=== PATIENT | female | born 1955 | race Caucasian/White ===

== ENCOUNTER 2017-07-22 06:40 | Day surgery (SDC) | payer MEDICAID, SELFPAY ==
--- NOTE | 2017-07-22 | IMM_PTH ---
PATIENT: ROHAN ROSALES LOC: EN U#:[id number] AGE/SX: 61/F ROOM: RE07/22/[address]: Dr. Janey Geronimo MD : 1955 BED: DIS: 07/22/2017 SPEC #: [id number] RECD: 07/23/17 10:58 STATUS: JANE ADELINA #: [id number] MICAELA: 07/22/17 00:[address]: Janey Greonimo DEPT: IMMUNOHISTOCHEMISTRY RECD BY: Tiffany Palafox ENTERED: 07/23/17 11:03 SP TYPE: IMMUNO OTHR DR: Dr. Toño Monzon MD Tissues: A - Stomach, NOS B - Esophageal mucous membrane Procedures: H Pylori (initial) PHYSICIAN & [place] [id number] SPECIMEN INFORMATION: Tissue Source: A ? Antral biopsy, B ? GE junction biopsy Clinical Info: GERD, diarrhea Specimen Number: [id number] A & B CPT code: 59134 x2 METHODOLOGY: Deparaffinized sections of prefer/formalin-fixed tissue or PAP/DQ stained slides are incubated with monoclonal/polyclonal antibodies/oligonucleotide probes. Localization is made via biotin free immunoperoxidase method. Appropriate controls are performed and reacted as expected. Results on target cell population are indicated in the following table: RESULTS: ANTIBODY / CLONE RESULT Block A H Pylori (polyclonal) negative Block B H Pylori (polyclonal) negative These tests were developed and their performance characteristics determined by [facility]. They may not have been cleared or approved by the U.S. Food and Drug Administration. The FDA has determined that such clearance or approval is not necessary. INTERPRETATION: A. Antral biopsy: Negative for Helicobacter pylori organisms. B. GE junction biopsy: Negative for Helicobacter pylori organisms. AM:kenneth 07/27/17
[2017-07-22 06:59] VITALS: BP 111/74; PULSE 79; RESP 18; TEMP 36.1; O2SAT 96; BMI 29.8
--- NOTE | 2017-07-22 08:06 | GASB_PTH ---
PATIENT: ROHAN ROSALES LOC: EN U#:[id number] AGE/SX: 61/F ROOM: RE07/22/[address]: Dr. Janey Geronimo MD : 1955 BED: DIS: 07/22/2017 SPEC #: [id number] RECD: 07/22/17 11:15 STATUS: JANE ADELINA #: [id number] MICAELA: 07/22/17 08:[address]: Janey Geronimo DEPT: SURGICAL PATHOLOGY RECD BY: Reji Casanova ENTERED: 07/22/17 11:16 SP TYPE: Gastric Bx CORDELL DR: Dr. Toño Monzon MD Tissues: A - Gastric mucous membrane B - Gastric mucous membrane C - Descending colon D - Sigmoid colon biopsy Procedures: Surgery Specimen Level IV HEADER OPERATION: EGD and colonoscopy PRE-OP DIAGNOSIS: GERD, diarrhea TISSUE SUBMITTED: A ? Antral biopsy for H. pylori and path, B ? GE junction biopsy, C ? Descending colon random biopsies, D ? Sigmoid biopsy MICROSCOPIC DIAGNOSIS A. Gastric antrum, biopsy: Mild chronic gastritis. B. Gastroesophageal junction, biopsy: Fragments of gastric mucosa with mild chronic inflammation. C. Descending colon, random biopsy: No pathologic diagnosis. D. Sigmoid colon, biopsy: Fragments of colonic mucosa with focal hyperplastic change. AM:kenneth 07/23/17 COMMENT A & B. The results of immunohistochemistry for Helicobacter pylori will be reported separately ([id number]). B. Squamous mucosa is not represented in the biopsy. Clinical correlation is suggested. MICROSCOPIC DESCRIPTION Slides are reviewed. GROSS DESCRIPTION A - Received in fixative is one container labeled with the patient's name and designated antral biopsy. The specimen consists of one irregular fragment of light peralta soft tissue that measures 0.3 x 0.3 x 0.1 cm. The specimen is totally submitted in one cassette. B - Received in fixative is one container labeled with the patient's name and designated GE junction biopsy. The specimen consists of multiple irregular fragments of light peralta soft tissue that in aggregate measure 1.5 x 0.1 x 0.1 cm. The specimen is totally submitted in one cassette. C - Received in fixative is one container labeled with the patient's name and designated random biopsy descending colon. The specimen consists of one irregular fragment of light peralta soft tissue that measures 0.3 x 0.3 x 0.1 cm. The specimen is totally submitted in one cassette. D - Received in fixative is one container labeled with the patient's name and designated sigmoid biopsy, random. The specimen consists of multiple irregular fragments of light peralta soft tissue that in aggregate measure 1.2 x 0.3 x 0.1 cm. The specimen is totally submitted in one cassette. / SJ:rg 07/22/17 TC:3 CPT: 59781 x4
[2017-07-22 08:44] VITALS: BP 111/74; BP 94/63; PULSE 78; RESP 16; TEMP 36.4; O2SAT 98
[2017-07-22 08:49] VITALS: BP 111/74; BP 97/72; PULSE 72; RESP 16; O2SAT 100
[2017-07-22 08:54] VITALS: BP 107/63; BP 111/74; PULSE 69; RESP 16; O2SAT 100
[2017-07-22 08:59] VITALS: BP 105/70; BP 111/74; PULSE 69; RESP 16; TEMP 36.3; O2SAT 100
[2017-07-22 09:10] VITALS: BP 111/74
--- NOTE | 2017-07-22 09:57 | PCM.OPRPT ---
Report of Operation Date of Procedure: 07/22/17 Pre-Operative Diagnosis: GERD, chronic diarrhea Post-Operative Diagnosis: GERD, small hiatal hernia, colon grossly normal Surgery/Procedure Performed:: EGD with biopsy, colonoscopy and biopsy Type of Anesthesia:: MAC Anesthesiologist: Pradeep Anderson Specimen's removed: 1. Antral biopsy, 2. GE junction biopsy, 3. Random descending colon biopsy, 4. Random sigmoid colon biopsy Estimated Blood Loss (mL): Minimal Description of Procedure: Procedure: EGD with biopsy After obtaining informed consent, the endoscope was passed under direct visualization. Throughout the procedure, patient's blood pressure, pulse, oxygen saturations were monitored continuously by anesthesia. The endoscope was introduced through the mouth and advanced to the 2nd part of the duodenum. The upper GI endoscopy was accomplished without difficulty. Patient tolerated procedure well. Findings: Small hiatal hernia was present. Mild change of mucosa GE junction, biopsied with cold forceps biopsies. Also biopsy of the antrum to check for H. pylori. Biopsies were taken with cold biopsy for histology. Estimated blood loss was minimal. The duodenum was normal. Impression: 1. Small hiatal hernia 2. Nontender mucosa at the GE junction. Biopsied. 3. Normal examined duodenum Recommendations: Await biopsies Continue PPI Procedure: Colonoscopy with biopsy After reviewing the risks benefits, the patient was deemed in satisfactory condition to undergo procedure. After obtaining informed consent, the scope was passed under direct visualization. Throughout the procedure, the patient's blood pressure pulse and position saturations were monitored continuously anesthesia. The colonoscope was introduced through the anus and advanced to the cecum, identified by the appendiceal orifice, IC valve and transillumination. The colonoscopy was performed without difficulty. The patient tolerated procedure well. Quality of bowel prep was good. Findings: The perianal and digital rectal exam were normal. The colon (entire examined portion) appeared grossly normal. Random cold forceps biopsies were taken of the descending and sigmoid colon due to her chronic diarrhea. Retroflexed view of the distal rectum and anal verge was normal and showed no anal or rectal abnormalities Impression: 1. The entire colon is normal. 2. The distal rectal and anal verge were normal on retroflexed view. 3. Chronic diarrhea -random biopsies taken of the descending and sigmoid colons. Recommendations: Await biopsies Repeat colonoscopy in 10 years for screening purposes - Complications none
== END 2017-07-22 09:22 | disposition home or self-care (01) ==
LOC: EN 06:40 → AC 06:43
PROVIDERS: Family Provider Family Medicine; PCP Family Medicine; Visit Provider Surgery
PROC: 0DJD8ZZ Inspection of Lower Intestinal Tract, Via Natural or Artificial Opening Endoscopic (ICD-10-PCS; CPT 45378; principal; 2017-07-22 07:55)
DX: K29.50 Unspecified chronic gastritis without bleeding (principal); K21.9 Gastro-esophageal reflux disease without esophagitis; R19.7 Diarrhea, unspecified; K44.9 Diaphragmatic hernia without obstruction or gangrene; F32.9 Major depressive disorder, single episode, unspecified; G25.81 Restless legs syndrome; J45.909 Unspecified asthma, uncomplicated; Z87.891 Personal history of nicotine dependence
CPT/HCPCS: 43239; 45380; 88305; 88342; J7120

== ENCOUNTER → 2017-08-18 12:32 | Outpatient (CLI) | payer MEDICAID, SELFPAY ==
--- NOTE | 2017-08-18 12:46 | RAD_ITS ---
STUDY: X-RAY - CERVICAL SPINE REASON FOR EXAM: Female, 61 years old. Neck pain TECHNIQUE: 6 view(s) of the cervical spine were obtained. COMPARISON: None FINDINGS: Normal anterior atlantoaxial articulation. Normal odontoid process. Normal cervical lordosis. There is multi-level endplate spondylosis. There is multi-level degenerative disc disease with multilevel disc space narrowing. There is multi-level osseous foraminal stenosis. The soft tissue structures are unremarkable. RAD/Cerv Spine 4 or 5 Views IMPRESSION: Diffuse degenerative changes. No acute bony abnormality. Electronically Signed: Onofre Velez DO at 12:15 EDT Tel , Service support ,
== END ==
PROVIDERS: Family Provider Family Medicine; PCP Family Medicine; Visit Provider Nurse Practitioner Family
DX: M54.2 Cervicalgia (principal)
CPT/HCPCS: 72050

== ENCOUNTER → 2018-06-03 13:59 | Outpatient (CLI) | payer OTHER, SELFPAY ==
--- NOTE | 2018-06-03 14:03 | RAD_ITS ---
STUDY: X-RAY CHEST REASON FOR EXAM: Female, 62 years old. Asthma exacerbation. TECHNIQUE: PA and lateral views of the chest. COMPARISON: December 26 and March 03, 2017 FINDINGS: The lungs are hyperinflated. There is no new focal consolidation. There are stable calcified nodules noted within the right lung consistent with underlying granulomas. Normal size heart. There is a stable calcified focus within the left hilar region consistent with a calcified lymph node. [Normal visualized pulmonary arteries.] [Normal visualized aortic arch and descending thoracic aorta.] Normal visualized thoracic spine. Normal visualized ribs, clavicles, and shoulders. There is no demonstrated abnormality of the visualized soft tissue structures of the upper abdomen. RAD/Chest PA and Lateral IMPRESSION: Hyperinflated lungs may reflect underlying COPD. Electronically Signed: Alyce Garcia MD at 15:00 EST Tel , Service support ,
== END ==
PROVIDERS: Family Provider Family Medicine; PCP Family Medicine; Referring Provider Family Medicine; Visit Provider Family Medicine
DX: J45.901 Unspecified asthma with (acute) exacerbation (principal)
CPT/HCPCS: 71046

== ENCOUNTER → 2019-08-03 09:41 | Outpatient (CLI) | payer OTHER, SELFPAY ==
[2019-08-03 11:16] LABS: Anion Gap 5 (5-15); BUN 24 mg/dL (7-18); BUN/Creat Ratio 27.4 RATIO (10-20); Calcium,Total 9.1 mg/dL (8.5-10.1); Chloride 106 mmol/L (98-107); Creatinine, Serum 0.88 mg/dL (0.55-1.02); EST Glomerular Filtration Rate 70 mL/min (>60); Est Glom Filt Rate - Afr Amer 84 mL/min (>60); Glucose 95 mg/dL (74-106); Potassium 4.1 mmol/L (3.5-5.1); Sodium Level 138 mmol/L (136-145)
== END ==
PROVIDERS: PCP Family Medicine; Referring Provider Nurse Practitioner Family; Visit Provider Nurse Practitioner Family
DX: Z79.1 Long term (current) use of non-steroidal anti-inflammatories (NSAID) (principal)
CPT/HCPCS: 36415; 80048

== ENCOUNTER → 2019-09-22 | Outpatient (CLI) | payer OTHER, SELFPAY ==
[2019-09-28 05:09] LABS: HPV Reflexed? NOT INDICATED
== END | disposition home or self-care (01) ==
PROVIDERS: PCP Family Medicine; Referring Provider Nurse Practitioner Family; Visit Provider Nurse Practitioner Family
DX: Z01.419 Encounter for gynecological examination (general) (routine) without abnormal findings (principal)
CPT/HCPCS: 88175; G0145

== ENCOUNTER → 2019-12-27 06:32 | Outpatient (CLI) | payer OTHER, SELFPAY ==
[2019-12-27 07:54] LABS: Anion Gap 4 (5-15); BUN 19 mg/dL (7-18); BUN/Creat Ratio 18.8 RATIO (10-20); Calcium,Total 9.4 mg/dL (8.5-10.1); Chloride 111 mmol/L (98-107); Creatinine, Serum 1.01 mg/dL (0.55-1.02); EST Glomerular Filtration Rate 59 mL/min (>60); Est Glom Filt Rate - Afr Amer 71 mL/min (>60); Glucose 96 mg/dL (74-106); Potassium 3.8 mmol/L (3.5-5.1); Sodium Level 142 mmol/L (136-145)
== END ==
PROVIDERS: PCP Family Medicine; Referring Provider Nurse Practitioner Family; Visit Provider Nurse Practitioner Family
DX: Z79.52 Long term (current) use of systemic steroids (principal)
CPT/HCPCS: 36415; 80048

== ENCOUNTER → 2020-01-12 12:56 | Outpatient (CLI) | payer OTHER, SELFPAY ==
--- NOTE | 2020-01-12 12:59 | RAD_ITS ---
STUDY: X-RAY - LUMBAR SPINE REASON FOR EXAM: Female, 64 years old. Pain TECHNIQUE: 5 view(s) of the lumbar spine were obtained including oblique views. COMPARISON: None FINDINGS: Normal lumbar lordosis. There is a minimal dextroscoliosis of the lumbar spine. There is a normal alignment of the vertebrae. There is multilevel endplate spondylosis of the lumbar vertebrae. There is multi-level degenerative disc disease with multi-level disc space narrowing. The soft tissue structures are unremarkable. RAD/L/S Spine Min 4 Views IMPRESSION: Degenerative changes of the spine, as detailed above. Electronically Signed: Sanjeev Edwards, at 13:28 EDT , Service support ,
--- NOTE | 2020-01-12 12:59 | RAD_ITS ---
STUDY: X-RAY - CERVICAL SPINE REASON FOR EXAM: Female, 64 years old. pain in cervical spine TECHNIQUE: 5 view(s) of the cervical spine were obtained. COMPARISON: 08/18/2017 FINDINGS: Normal anterior atlantoaxial articulation. Normal odontoid process. Normal cervical lordosis. There is multi-level endplate spondylosis. There is multi-level degenerative disc disease with multilevel disc space narrowing. There is multi-level osseous foraminal stenosis. 2 mm of anterolisthesis of C4 on C5. 2 mm retrolisthesis of C5 on C6 to The soft tissue structures are unremarkable. RAD/Cerv Spine 4 or 5 Views IMPRESSION: Moderate degenerative disc disease lower cervical spine with 2 mm of anterolisthesis of C4 on C5 and 2 mm retrolisthesis of C5 on C6, similar to the prior study.. Electronically Signed: Servando Drummond MD at 10:46 EDT Tel , Service support ,
== END ==
PROVIDERS: PCP Family Medicine; Referring Provider Anesthesiology Pain Medicine; Visit Provider Anesthesiology Pain Medicine
DX: M51.37 Other intervertebral disc degeneration, lumbosacral region (principal)
CPT/HCPCS: 72050; 72110

== ENCOUNTER → 2020-01-19 16:24 | Outpatient (CLI) | payer OTHER, SELFPAY ==
[2020-01-19 17:43] LABS: Hematocrit 35.6 % (37-47); Hemoglobin 11.6 g/dL (12.0-15.0); Mean Corp Hgb Conc 32.6 g/dL (32-36); Mean Corpuscular Hgb 29.4 pg (27.0-32.0); Mean Corpuscular Volume 90.4 fL (81-99); Mean Platelet Vol. 11.1 fl (6.2-12.0); Platelet Count 219 K/mm3 (150-450); RBC Distribution Width CV 12.3 % (11.6-14.6); RBC Distribution Width SD 41.1 fl (35.1-43.9); Red Blood Count 3.94 M/mm3 (4.2-5.4); White Blood Count 7.2 K/mm3 (4.4-11.0)
[2020-01-19 17:57] LABS: Erythrocyte Sedimentation Rate 24 mm/hr (0-30)
[2020-01-19 18:28] LABS: Anion Gap 8 (5-15); BUN 22 mg/dL (7-18); BUN/Creat Ratio 21.6 RATIO (10-20); Calcium,Total 9.2 mg/dL (8.5-10.1); Chloride 105 mmol/L (98-107); Creatinine, Serum 1.02 mg/dL (0.55-1.02); EST Glomerular Filtration Rate 58 mL/min (>60); Est Glom Filt Rate - Afr Amer 70 mL/min (>60); Glucose 132 mg/dL (74-106); Potassium 3.6 mmol/L (3.5-5.1); Sodium Level 137 mmol/L (136-145); Thyroid Stim Hormone (TSH) 2.33 uIU/mL (0.358-3.74)
== END ==
PROVIDERS: PCP Family Medicine; Referring Provider Family Medicine; Visit Provider Family Medicine
DX: N19 Unspecified kidney failure (principal); K11.7 Disturbances of salivary secretion
CPT/HCPCS: 36415; 80048; 84443; 85027; 85652

== ENCOUNTER → 2020-01-30 15:45 | Outpatient (CLI) | payer OTHER, SELFPAY | PROVIDERS: PCP Family Medicine; Visit Provider Family Medicine | DX: J40 Bronchitis, not specified as acute or chronic (principal) | CPT/HCPCS: 87633; 87635; U0003 ==

== ENCOUNTER → 2020-03-28 18:33 | Outpatient (CLI) | payer OTHER, SELFPAY | PROVIDERS: PCP Family Medicine; Visit Provider Family Medicine | DX: Z20.828 Contact with and (suspected) exposure to other viral communicable diseases (principal) | CPT/HCPCS: 87635; U0003 ==

== ENCOUNTER → 2020-04-02 09:33 | Outpatient (CLI) | payer OTHER, SELFPAY | PROVIDERS: PCP Family Medicine; Referring Provider Family Medicine; Visit Provider Family Medicine | DX: Z20.828 Contact with and (suspected) exposure to other viral communicable diseases (principal) | CPT/HCPCS: 87635; U0003 ==

== ENCOUNTER → 2020-04-09 16:05 | Outpatient (CLI) | payer OTHER, SELFPAY ==
--- NOTE | 2020-04-09 16:08 | RAD_ITS ---
STUDY: X-RAY CHEST REASON FOR EXAM: Female, 64 years old. INCREASED DYSPNEA, HX OF ASTHMA TECHNIQUE: PA and lateral views of the chest. COMPARISON: 06/03/2018. FINDINGS: The lungs are clear and expanded. There is no demonstrated pleural abnormality. Normal size heart. Normal mediastinum and bertrand. Normal visualized pulmonary arteries. Normal visualized aortic arch and descending thoracic aorta. There are diffuse degenerative changes of the visualized thoracic spine. Normal visualized ribs, clavicles, and shoulders. There is no demonstrated abnormality of the visualized soft tissue structures of the upper abdomen. RAD/Chest PA and Lateral IMPRESSION: No acute cardiopulmonary disease. Electronically Signed: Rebecca Perez MD at 2:43 EST , Service support ,
== END ==
PROVIDERS: PCP Family Medicine; Referring Provider Family Medicine; Visit Provider Family Medicine
DX: J45.909 Unspecified asthma, uncomplicated (principal)
CPT/HCPCS: 71046

== ENCOUNTER → 2020-04-10 11:46 | Outpatient (CLI) | payer OTHER, SELFPAY | PROVIDERS: PCP Family Medicine; Visit Provider Family Medicine | DX: R06.00 Dyspnea, unspecified (principal) | CPT/HCPCS: 87633 ==

== ENCOUNTER → 2020-04-16 15:59 | Outpatient (CLI) | payer OTHER, SELFPAY ==
[2020-04-16 17:47] LABS: Absolute Lymphocyte Count 1.84 X10^3/uL (0.83-4.51); Absolute Neutrophil Count 5.9 X10^3/uL (2.0-7.7); Basophil# 0.04 X10^3/uL; Basophil% 0.5 % (0-1); Eosinophil# 0.49 X10^3/uL; Eosinophils% 5.5 % (0-5); Hematocrit 36.9 % (37-47); Hemoglobin 12.4 g/dL (12.0-15.0); Lymphocyte # 1.84 X10^3/ul (4.0); Lymphocyte % 20.7 % (19-41); Mean Corp Hgb Conc 33.6 g/dL (32-36); Mean Corpuscular Hgb 30.8 pg (27.0-32.0); Mean Corpuscular Volume 91.8 fL (81-99); Mean Platelet Vol. 10.8 fl (6.2-12.0); Monocyte# 0.57 X10^3/uL; Monocyte% 6.4 % (0-10); NRBC Flagged by Analyzer 0 % (0-5); Neutrophil # 5.92 X10^3/uL (2.7-7.7); Neutrophil % 66.7 % (47-70); Platelet Count 243 K/mm3 (150-450); RBC Distribution Width CV 13.4 % (11.6-14.6); RBC Distribution Width SD 43.8 fl (35.1-43.9); Red Blood Count 4.02 M/mm3 (4.2-5.4); White Blood Count 8.9 K/mm3 (4.4-11.0)
[2020-04-16 18:03] LABS: Erythrocyte Sedimentation Rate 15 mm/hr (0-30)
[2020-04-16 18:26] LABS: ALB/GLOB Ratio 1.1 RATIO (0.9-2.4); AST(SGOT) 15 U/L (15-37); Alanine Aminotransfer ALT/SGPT 26 U/L (13-56); Albumin, Serum 4.1 g/dL (3.2-5.0); Alkaline Phosphatase 79 U/L (45-117); Anion Gap 8 (5-15); BUN 23 mg/dL (7-18); BUN/Creat Ratio 21.1 RATIO (10-20); CRP < 2.90 mg/L (0.0-3.0); Calcium,Total 9.3 mg/dL (8.5-10.1); Chloride 106 mmol/L (98-107); Creatinine, Serum 1.09 mg/dL (0.55-1.02); EST Glomerular Filtration Rate 54 mL/min (>60); Est Glom Filt Rate - Afr Amer 65 mL/min (>60); Globulin 3.8 g/dL (2.2-4.2); Glucose 100 mg/dL (74-106); Potassium 3.5 mmol/L (3.5-5.1); Protein, Total 7.9 g/dL (6.4-8.2); Sodium Level 139 mmol/L (136-145); Thyroid Stim Hormone (TSH) 2.25 uIU/mL (0.358-3.74)
== END ==
PROVIDERS: PCP Family Medicine; Visit Provider Family Medicine
DX: L74.9 Eccrine sweat disorder, unspecified (principal); R06.00 Dyspnea, unspecified
CPT/HCPCS: 36415; 80053; 84443; 85025; 85652; 86140

== ENCOUNTER → 2020-07-30 16:35 | Outpatient (CLI) | payer OTHER, SELFPAY ==
[2020-07-18 13:19] VITALS: BMI 30.7
--- NOTE | 2020-07-30 16:36 | MRI_ITS ---
STUDY: MRI LUMBAR SPINE WITHOUT CONTRAST REASON FOR EXAM: Female, 64 years old. low back pain TECHNIQUE: Standardized fat and water weighted pulse sequences were obtained in the sagittal and axial planes. COMPARISON: 11/04/2016 FINDINGS: T12-L1: Mild broad disc protrusion produces mild spinal stenosis but no neural foraminal stenosis. Normal lumbar lordosis. Mild dextroscoliosis of the lumbar spine centered at L3/L4. Normal conus medullaris that terminates at the T12/L1. L1-2: No change in the mild broad disc protrusion which produces mild spinal stenosis but no neural foraminal stenosis. L2-3: Moderate bilateral facet hypertrophy and mild ligament flavum hypertrophy. No change in the mild bilobed disc protrusion which produces moderate spinal stenosis with moderate bilateral lateral recess stenosis with abutment of the L3 nerve roots bilaterally but no neural foraminal stenosis. L3-4: Moderate bilateral facet hypertrophy and ligament flavum hypertrophy. No change in the moderate bilobed disc protrusion asymmetric to the left which produces moderate spinal stenosis with moderate bilateral lateral recess stenosis with abutment of the L4 nerve roots bilaterally and mild right neural foraminal stenosis. However, interval development of a left foraminal protrusion which produces moderate left neural foraminal stenosis with abutment of the left L3 nerve root laterally. L4-5: Interval posterior decompression. Moderate bilateral facet hypertrophy. Improvement in the broad disc protrusion which is now mild in size which produces mild spinal stenosis and mild bilateral lateral recess stenosis and mild right neural foraminal stenosis but no change in the left foraminal protrusion which produces severe left neural foraminal stenosis with effacement of the left L4 nerve root laterally. L5-S1: Interval posterior decompression. Mild bilateral facet hypertrophy. No change in the mild broad disc protrusion which produces mild spinal stenosis and mild bilateral neural foraminal stenosis. Normal visualized sacral ala. Normal visualized paraspinous soft tissue structures. MRI/Spine Lumbar (Routine) IMPRESSION: 1. Interval posterior decompression at L4/L5 and L5/S1 with improved spinal stenosis but persistent severe left neural foraminal stenosis at L4/L5 with effacement of the left L4 nerve root laterally. 2. Interval development of a left foraminal protrusion at L3/L4 with moderate left neural foraminal stenosis with abutment of the left L3 nerve root laterally. Electronically Signed: Servando Drummond MD at 8:46 EDT Tel , Service support ,
[2020-07-30 17:26] LABS: CREATININE FINGERSTICK 1.3 mg/dL (0.55-1.02)
== END ==
PROVIDERS: PCP Family Medicine; Referring Provider Orthopaedic Surgery; Visit Provider Orthopaedic Surgery
DX: M54.5 Low back pain (principal); G89.29 Other chronic pain; M51.37 Other intervertebral disc degeneration, lumbosacral region; Z98.890 Other specified postprocedural states
CPT/HCPCS: 72148

== ENCOUNTER 2020-09-19 12:30 | Outpatient (RCR) | payer OTHER, SELFPAY ==
--- NOTE | 2020-08-30 12:01 | HP.PTEVAL ---
Patient's Visit Information ROHAN ROSALES is a 64 year old F referred to Physical Therapy by Dr. Cresencio Matias DO with a diagnosis of LUMBAR DDD. Date of Evaluation: 08/30/20 Physical Therapist: Sarah James PT, Cert MDT - Visit Plan Frequency: 1x/Week Duration: 1 Week Plan: PATIENT DOES NOT WANT TO TRY PHYSICAL THERAPY OR EVEN AQUATIC THERAPY. SHE WAS AGREEABLE TO THE PHYSICAL THERAPY EVALUATION TODAY ONLY. SHE DOES HAVE SEVERE PAIN, STATES THE INJECTIONS ARE NOT HELPING HER AND DR. MATIAS HAS RECOMMENDED SURGERY SO I WILL DISCHARGE HER AT THIS TIME. PATIENT REPORTS BEING VERY WILLING TO DO PHYSICAL THERAPY AFTER SURGERY IF DR. MATIAS IS AGREEABLE. PATIENT WAS GIVEN INSTRUCTION IN POSTURE CONTROL, SIGN LANGUAGE INTERPRETER AND ACTIVITY MODIFICATIONS TODAY TO TRY TO HELP DECREASE PAIN. - Subjective Work/Leisure: [employer] MA[employer]TE[employer] ACC[employer]ING WORK FOR [employer] IN [place]. 30 MINUTE COMMUTE TO WORK. Disability: NO. Present symptoms: LEA LOW BACK PAIN AND SHOOTING PAINS DOWN BOTH LEGS TO FEET AND BOTTOMS OF FEET ARE NUMB. Present since: ABOUT 5 YEARS AGO BUT FLARED UP JAN 2020. Pain Scale: WORST 9/10, LEAST 6/10. Currently: 8/10. Commenced as a result of: DOING [email or web address]. Symptoms at onset: LOW BACK. Worse: SITTING, WALKING, STANDING, TRYING TO DO HOUSEWORK, UP AND DOWN STAIRS, ANYTHING REALLY. Better: POOL LAST SUMMER (BEFORE FLARE UP) BUT HASN'T HAD THE OPPORTUNITY TO GET IN A POOL SINCE THEN. Disturbed sleep: YES. Previous history/Previous treatment: BACK SURGERY [address] BENAVIDES - LAMINECTOMY - NO HARDWARE. HAS HAD A LOT OF NELL'S WITH LAST ONE BEING WITH DR. ESCOBEDO MAR/APR 2020 - SHOTS ARE NOT WORKING. Treatment this episode: SAW DR. ROBLERO AND HE REFERRED HER TO DR. MATIAS. PATIENT REPORTS DR. MATIAS WANTS TO DO SURGERY AND SCHEDULED FOR SURGERY SEPTEMBER 25 2020. LOWER LUMBAR FUSION RECOMMENDED. Coughing/sneezing/straining: YES. Gait: PATIENT REPORTS THAT HER LEGS GET WIERD NUMB FEELING AND SHE GETS PRESSURE IN LOW BACK CAUSING HER TO BEND FORWARD AND HAVE DIFFICULTY WALKING. PAINFUL. NO ASSISTIVE DEVICES. Difficulty initiating urinatin: NO. Accidents: NO. Unexplained weight loss: NO. Imaging: RECENT LUMBAR MRI - SEE [facility] EMR. IMPRESSION: 1. Interval posterior decompression at L4/L5 and L5/S1 with improved. spinal stenosis but persistent severe left neural foraminal stenosis at. L4/L5 with effacement of the left L4 nerve root laterally. 2. Interval development of a left foraminal protrusion at L3/L4 with. moderate left neural foraminal stenosis with abutment of the left L3 nerve. root laterally. OTHER: PATIENT REPORTS DR. MATIAS TOLD HER SHE HAS DEGENERATIVE DISC DISEASE. PATIENT REPORTS SHE HAS NOT HAD PHYSICAL THERAPY SINCE PRIOR TO HER FIRST BACK SURGERY. STATES SHE WAS FINE AFTER THE BACK SURGERY UNTIL JAN 2020 AND SHOTS DID NOT HELP AND SHE HASN'T BEEN DOING ANY BACK EX'S. STATES EVERYTHING HURTS HER BACK NOW. PMH: SEE BELOW AND L KNEE SURGERY FOR TORN MENISCUS EARLY 1999. R WRIST AND ELBOW SURGERIES IN . ASTHMA. - Objective Sitting/Standing Posture: POOR. SHIFTING WEIGHT OFF OF LEFT BUTTOCK IN SITTING. DECREASED LORDOSIS AND L LATERAL SHIFT. Active Correction of posture: WORSE. Other Observations: INDEP ANTALGIC GAIT INTO PT WITH DECREASED CADANCE, INCREASED TRUNK FLEX. NO AD'S. NO LOB. UNABLE TO TRANSFER FROM SIT TO STAND WITHOUT UE ASSIST. FREQUENT CHANGE OF POSITION IN CLINIC DURING ASSESSMENT ALTERNATING BETWEEN SITTING, STANDING AND WALKING AND DOES NOT APPEAR TO BE ABLE TO GET COMFORTABLE IN ANY POSITION. Motor deficit: DIFFICULTY TESTING LE STRENGTH DUE TO PAIN AND GUARDING. LEA LE STRENGTH APPEARS TO BE GROSSLY FOLLOWS: HIPS 3/5, KNEE EXT 4-/5, KNEE FLEX 4/5, ANKLES 5/5. Sensory deficit: DECREASED LIGHT TOUCH SENSATION OF THE RIGHT LATERAL LEG AND FOOT COMPARED TO LEFT AND PATIENT REPORTS THIS IS RESIDUAL FROM FIRST BACK SURGERY. ROM deficit: TIGHT LEA HIP FLEXORS, HS'S AND GASTROC SOLEUS COMPLEX'S. Reflexes: UNABLE TO ELICIT LEA LE DTR'S. Dural Signs: POSITIVE LEA LE'S. Lumbar mvmt loss: flex - MOD. ext - TAE. R SG - TAE. L SG - TAE. PATIENT C/O PAIN WITH LUMBAR ROM TESTING ALL PLANES. MVMTS ARE SLOW AND GUARDED. Core strength: POOR. Palpation: NO ACUTE TENDERNESS WITH PALPATION OF THE LOWER THORACIC, LUMBAR OR LEA BUTTOCK OR HIP REGIONS AND PATIENT REPORTS IT ISN'T TYPICALLY TENDER. OTHER: PATIENT IS ABLE TO INDEP'LY WALK ON HER TOES AND WALK ON HER HEELS WITHOUT UE ASSIST. TREATMENT: NEUROMUSCULAR REEDUCATION - RETRAINING OF MVMT AND POSTURE FOR SITTING, LYING AND STANDING ACTIVITIES. - Goals Goal 1:: PATIENT WILL COMMUNICATE A GOOD UNDERSTANDING OF HOME INSTRUCTIONS GIVEN. Goal Time Frame: 1 VISIT - Anticipated Interventions Patient/Client Instruction: Educate patient on: Condition, Plan of Care, Risk Factors For the Purpose of:: To improve self management Thank you for the opportunity to evaluate your patient. For Medicare and Medicare HMO plans, please review the plan of care and approve it. It will need to be FAXED BACK to us at [phone] for Medicare purposes. For Medicare only, by signing this I certify the plan of care. Please let me know if there are questions or concerns regarding this plan of care. Physician Signature: Date:
--- NOTE | 2020-08-30 15:10 | HP.PTEVAL ---
Patient's Visit Information ROHAN ROSALES is a 64 year old F referred to Physical Therapy by Dr. Cresencio Matias DO with a diagnosis of LUMBAR DDD. Date of Evaluation: 08/30/20 Physical Therapist: Sarah James PT, Cert MDT - Visit Plan Frequency: 2x /Week Duration: 2 Weeks Plan: AQUATIC THERAPY FOR PAIN RELEIF, POSTURE CORRECTION/STRENGTHENING, INSTRUCTION IN APPROPRIATE BODY MECHANICS AND ACTIVITY MODIFICATIONS. DLS STARTING WITH A NEUTRAL SPINE PROGRESSING ROM TOLERATED. LEA LE ROM, STRETCHING AND STRENGTHENING. HEP INSTRUCTION. PATIENT DOES NOT THINK PHYSICAL THERAPY OR EVEN AQUATIC THERAPY WILL HELP BUT SHE IS WILLING TO TRY 2 WEEKS TOLERATED. SHE DOES HAVE C/O SEVERE PAIN, STATES THE INJECTIONS ARE NOT HELPIING AND DR. MATIAS HAS RECOMMENDED SURGERY. PATIENT WAS GIVEN INSTRUCTION IN POSTURE CONTROL, ASSISTANT TO THE CEO AND ACTIVITY MODIFICATIONS TODAY TO TRY TO HELP DECREASE PAIN - REINFORCEMENT NEEDED. 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 30 MINUTE COMMUTE TO WORK. Disability: NO. Present symptoms: LEA LOW BACK PAIN AND SHOOTING PAINS DOWN BOTH LEGS TO FEET AND BOTTOMS OF FEET ARE NUMB. Present since: ABOUT 5 YEARS AGO BUT FLARED UP JAN 2020. Pain Scale: WORST 9/10, LEAST 6/10. Currently: 8/10. Commenced as a result of: DOING [employer]. Symptoms at onset: LOW BACK. Worse: SITTING, WALKING, STANDING, TRYING TO DO HOUSEWORK, UP AND DOWN STAIRS, ANYTHING REALLY. Better: POOL LAST SUMMER (BEFORE FLARE UP) BUT HASN'T HAD THE OPPORTUNITY TO GET IN A POOL SINCE THEN. Disturbed sleep: YES. Previous history/Previous treatment: BACK SURGERY [address] BENAVIDES - LAMINECTOMY - NO HARDWARE. HAS HAD A LOT OF NELL'S WITH LAST ONE BEING WITH DR. ESCOBEDO MAR/APR 2020 - SHOTS ARE NOT WORKING. Treatment this episode: SAW DR. ROBLERO AND HE REFERRED HER TO DR. MATIAS. PATIENT REPORTS DR. MATIAS WANTS TO DO SURGERY AND SCHEDULED FOR SURGERY SEPTEMBER 25 2020. LOWER LUMBAR FUSION RECOMMENDED. Coughing/sneezing/straining: YES. Gait: PATIENT REPORTS THAT HER LEGS GET WIERD NUMB FEELING AND SHE GETS PRESSURE IN LOW BACK CAUSING HER TO BEND FORWARD AND HAVE DIFFICULTY WALKING. PAINFUL. NO ASSISTIVE DEVICES. Difficulty initiating urinatin: NO. Accidents: NO. Unexplained weight loss: NO. Imaging: RECENT LUMBAR MRI - SEE [facility] EMR. IMPRESSION: 1. Interval posterior decompression at L4/L5 and L5/S1 with improved. spinal stenosis but persistent severe left neural foraminal stenosis at. L4/L5 with effacement of the left L4 nerve root laterally. 2. Interval development of a left foraminal protrusion at L3/L4 with. moderate left neural foraminal stenosis with abutment of the left L3 nerve. root laterally. OTHER: PATIENT REPORTS DR. MATIAS TOLD HER SHE HAS DEGENERATIVE DISC DISEASE. PATIENT REPORTS SHE HAS NOT HAD PHYSICAL THERAPY SINCE PRIOR TO HER FIRST BACK SURGERY. STATES SHE WAS FINE AFTER THE BACK SURGERY UNTIL JAN 2020 AND SHOTS DID NOT HELP AND SHE HASN'T BEEN DOING ANY BACK EX'S. STATES EVERYTHING HURTS HER BACK NOW. PMH: SEE BELOW AND L KNEE SURGERY FOR TORN MENISCUS EARLY 1999. R WRIST AND ELBOW SURGERIES IN . ASTHMA. - Objective Sitting/Standing Posture: POOR. SHIFTING WEIGHT OFF OF LEFT BUTTOCK IN SITTING. DECREASED LORDOSIS AND L LATERAL SHIFT. Active Correction of posture: WORSE. Other Observations: INDEP ANTALGIC GAIT INTO PT WITH DECREASED CADANCE, INCREASED TRUNK FLEX. NO AD'S. NO LOB. UNABLE TO TRANSFER FROM SIT TO STAND WITHOUT UE ASSIST. FREQUENT CHANGE OF POSITION IN CLINIC DURING ASSESSMENT ALTERNATING BETWEEN SITTING, STANDING AND WALKING AND DOES NOT APPEAR TO BE ABLE TO GET COMFORTABLE IN ANY POSITION. Motor deficit: DIFFICULTY TESTING LE STRENGTH DUE TO PAIN AND GUARDING. LEA LE STRENGTH APPEARS TO BE GROSSLY FOLLOWS: HIPS 3/5, KNEE EXT 4-/5, KNEE FLEX 4/5, ANKLES 5/5. Sensory deficit: DECREASED LIGHT TOUCH SENSATION OF THE RIGHT LATERAL LEG AND FOOT COMPARED TO LEFT AND PATIENT REPORTS THIS IS RESIDUAL FROM FIRST BACK SURGERY. ROM deficit: TIGHT LEA HIP FLEXORS, HS'S AND GASTROC SOLEUS COMPLEX'S. Reflexes: UNABLE TO ELICIT LEA LE DTR'S. Dural Signs: POSITIVE LEA LE'S. Lumbar mvmt loss: flex - MOD. ext - TAE. R SG - TAE. L SG - TAE. PATIENT C/O PAIN WITH LUMBAR ROM TESTING ALL PLANES. MVMTS ARE SLOW AND GUARDED. Core strength: POOR. Palpation: NO ACUTE TENDERNESS WITH PALPATION OF THE LOWER THORACIC, LUMBAR OR LEA BUTTOCK OR HIP REGIONS AND PATIENT REPORTS IT ISN'T TYPICALLY TENDER. OTHER: PATIENT IS ABLE TO INDEP'LY WALK ON HER TOES AND WALK ON HER HEELS WITHOUT UE ASSIST. TREATMENT: NEUROMUSCULAR REEDUCATION - RETRAINING OF MVMT AND POSTURE FOR SITTING, LYING AND STANDING ACTIVITIES. - Goals Goal 1:: DECREASE C/O BACK AND LE SX'S Goal Time Frame: 2 Weeks Goal 2:: IMPROVE PERSONAL CARE, LIFTING, WALKING, SITTING, STANDING, SLEEP, SOCIAL LIFE, TRAVEL, WORK AND HOMEMAKING FUNCTION. Goal Time Frame: 2 Weeks Goal 3:: INSTRUCT IN PROPHLAXIS Goal Time Frame: 2 Weeks - Anticipated Interventions Patient/Client Instruction: Educate patient on: Condition, Plan of Care, Risk Factors For the Purpose of:: To improve self management Therapeutic Exercise to Include: Strength training, Body mechanics, Postural training, Flexibilty training, Gait and locomotor training, Neuromotor development, In an aquatic setting, Dynamic Lumbar Stabilization For the Purpose of:: To decrease pain, To improve muscle performance and motor function, To increase tolerance to activity/condition/position, To improve ability of physical actions for home/community/work/leisure, To improve gait and locomotor functions Thank you for the opportunity to evaluate your patient. For Medicare and Medicare HMO plans, please review the plan of care and approve it. It will need to be FAXED BACK to us at [phone] for Medicare purposes. For Medicare only, by signing this I certify the plan of care. Please let me know if there are questions or concerns regarding this plan of care. Physician Signature: Date:
--- NOTE | 2020-09-19 12:58 | HP.PTDCSUM ---
It has been my pleasure to treat ROHAN ROSALES referred by Dr. Cresencio Matias, DO, with the diagnosis of LUMBAR DDD for a total of 5 visit(s). Discharge Date: Please see the following information for a summary of their discharge status. Subjective: PATIENT REPORTS SHE IS NOT GETTING BETTER. STATES HER LEGS JUST DON'T WANT TO BE DOING WHAT THEY ARE SUPPOSED TO BE DOING. PATIENT REPORTS HAVING FOLLOW UP WITH DR. MATIAS THIS MORNING. PLANNING TO HAVE SURGERY 09/25/20. PRESCRIBED VICODIN. PATIENT REPORTS SHE FEELS WE HAVE REALLY TRIED OUR BEST TO HELP HER BUT SHE NEEDS THE SURGERY. STATES SHE IS HOPING TO HAVE THERAPY AFTER BACK SURGERY. Lumbar Soine Pain Intensity (Out of 10): 8 RLE Pain Intensity (Out of 10): 8 LLE Pain Intensity (Out of 10): 8 % Improvement: 0 Objective/Function: PATIENT WAS SEEN TODAY FOR RE-ASSESSMENT OF PROGRESS TOWARD THE SET PT GOALS AND THE NEED FOR FURTHER PHYSICAL THERAPY VS READINESS FOR DISCHARGE. UPON EXAM TODAY THERE ARE NO SIGNIFICANT CHANGES SINCE INITIAL EVAL. PATIENT IS APPROPRIATE FOR DISCHARGE AT THIS TIME BUT MAY BENEFIT FROM PT AFTER SURGERY. Goal 1:: DECREASE C/O BACK AND LE SX'S Goal Progress: Not Progressing Goal 2:: IMPROVE PERSONAL CARE, LIFTING, WALKING, SITTING, STANDING, SLEEP, SOCIAL LIFE, TRAVEL, WORK AND HOMEMAKING FUNCTION. Goal Progress: Not Progressing Goal 3:: INSTRUCT IN PROPHLAXIS Goal Progress: Not Progressing Plan: D/C DUE TO LACK OF PROGRESS. PATIENT AGREEABLE. If there are questions or concerns regarding this patient's physical therapy, please feel free to call me at [phone]. Thank you for the referral of this patient. Sincerely, Sarah James, PT, Cert MDT
== END 2020-09-19 19:00 | disposition home or self-care (01) ==
LOC: PT 12:30
PROVIDERS: PCP Family Medicine; Referring Provider Orthopaedic Surgery; Visit Provider Orthopaedic Surgery
DX: M51.37 Other intervertebral disc degeneration, lumbosacral region (principal)
CPT/HCPCS: 97112; 97113; 97162; 97164

== ENCOUNTER 2020-09-25 05:28 | Inpatient (IN) | payer OTHER, SELFPAY ==
--- NOTE | 2020-09-17 08:58 | EKG12_ITS ---
Test Reason : PRE OP Blood Pressure : / mmHG Vent. Rate : 084 BPM Atrial Rate : 084 BPM P-R Int : 152 ms QRS Dur : 086 ms QT Int : 366 ms P-R-T Axes : 063 047 070 degrees QTc Int : 432 ms Normal sinus rhythm ST-Segment Abnormality: Consider Early Repolarization Variant Confirmed by NANCY PICHARDO, CHIVO ([id number]), editor book LUKE ALFARO ([id number]) on 09/18/2020 10:26:19 AM Referred By: Cresencio Matias Confirmed By:CHIVO CRUZ MD
[2020-09-17 09:29] LABS: Absolute Lymphocyte Count 1.87 X10^3/uL (0.83-4.51); Basophil# 0.05 X10^3/uL; Basophil% 0.6 % (0-1); Eosinophils% 5.1 % (0-5); Hematocrit 40.5 % (37-47); Hemoglobin 13.3 g/dL (12.0-15.0); Lymphocyte # 1.87 X10^3/ul (0.83-4.51); Lymphocyte % 23.7 % (19-41); Mean Corp Hgb Conc 32.8 g/dL (32-36); Mean Corpuscular Hgb 28.6 pg (27.0-32.0); Mean Corpuscular Volume 87.1 fL (81-99); Mean Platelet Vol. 10.5 fl (6.2-12.0); Monocyte# 0.59 X10^3/uL; Monocyte% 7.5 % (0-10); NRBC Flagged by Analyzer 0 % (0-5); Neutrophil # 4.96 X10^3/uL (2.7-7.7); Neutrophil % 62.7 % (47-70); Platelet Count 294 K/mm3 (150-450); RBC Distribution Width SD 40.7 fl (35.1-43.9); Red Blood Count 4.65 M/mm3 (4.2-5.4); White Blood Count 7.9 K/mm3 (4.4-11.0)
[2020-09-17 10:07] LABS: Anion Gap 9 (5-15); BUN 21 mg/dL (7-18); BUN/Creat Ratio 18.1 RATIO (10-20); Calcium,Total 9.9 mg/dL (8.5-10.1); Chloride 105 mmol/L (98-107); Creatinine, Serum 1.16 mg/dL (0.55-1.02); EST Glomerular Filtration Rate 50 mL/min (>60); Est Glom Filt Rate - Afr Amer 61 mL/min (>60); Glucose 100 mg/dL (74-106); Potassium 4.2 mmol/L (3.5-5.1); Sodium Level 138 mmol/L (136-145)
[2020-09-17 10:09] LABS: Magnesium 2.3 mg/dL (1.6-2.6)
[2020-09-17 10:38] LABS: HIV - WCH Non-Reactive (Nonreactive)
[2020-09-18 08:09] LABS: HEPATITIS B SURFACE AG Negative (Negative); Hepatitis A AB, Total Negative (Negative); Hepatitis A IgM Antibody Negative (Negative); Hepatitis B Core AB IgM Negative (Negative); Hepatitis B Core Ab Total Negative (Negative); Hepatitis C Ab <0.1 s/co ratio (0.0-0.9)
[2020-09-18 13:24] LABS: Hep B Surface Antibodies Non Reactive (.)
[2020-09-19 10:20] VITALS: BMI 30.7
[2020-09-25] VITALS (12 sets, daily range): BP systolic 106–156; BP diastolic 56–83; PULSE 81–116; RESP 16–24; TEMP 36.3–37.7; O2SAT 96–100; BMI 18.9; BMI 31.1
[2020-09-25] MEDS: Lactated Ringers 1,000 ML 100 ML IV ×2 (06:28→15:31)
[2020-09-25] MEDS: Acetaminophen 500 MG Tablet 1000 MG PO ×2 (06:29→22:23)
--- NOTE | 2020-09-25 07:30 | DISC_PTH ---
PATIENT: ROHAN ROSALES LOC: MS3 U#:[id number] AGE/SX: 64/F ROOM: [facility] [place] RE09/25/[address]: Dr. Cresencio Matias DO : 1955 BED: 1 DIS: 09/29/2020 SPEC #: [id number] RECD: 09/25/20 15:20 STATUS: JANE MACKBob #: [id number] MICAELA: 09/25/20 07:[address]: Cresencio Matias DEPT: SURGICAL PATHOLOGY RECD BY: Fatuma Olvera ENTERED: 09/26/20 10:39 SP TYPE: DISC OTHR DR: MD Dr. Marco Villareal DO Tissues: A - Intervertebral disc, NOS B - Intervertebral disc, NOS Procedures: Surgery Specimen Level III HEADER OPERATION: ERAS, 360 lumbar fusion L4-L5, L5-S1 PRE-OP DIAGNOSIS: Chronic back pain; back pain; spinal stenosis L4-L5, degenerative disc disease TISSUE SUBMITTED: A ? L4-L5 disc, B ? L5-S1 disc MICROSCOPIC DIAGNOSIS A. L4-L5 disc: Fragments of fibrocartilaginous tissue with degenerative changes and bone. B. L5-S1 disc: Fragments of fibrocartilaginous tissue with degenerative changes and bone. NAJMA:kenneth 09/27/2020 MICROSCOPIC DESCRIPTION Slides are reviewed. GROSS DESCRIPTION A - Received in fixative is one container labeled with the patient's name and designated L4-L5 disc. The specimen consists of multiple pieces of peralta, indurated tissue that in aggregate measure 7 x 5.5 x 1.5 cm. The largest piece measures 4 cm in greatest dimension. Production Line Mechanic tissue is submitted in two cassettes. B - Received in fixative is one container labeled with the patient's name and designated L5-S1 disc. The specimen consists of multiple pieces of peralta, indurated tissue that in aggregate measure 3.5 x 3 x 0.6 cm. The largest piece measures 2.5 cm in greatest dimension and it is bisected. The entire specimen is submitted in two cassettes. / NAJMA:kenneth 09/26/20 TC:5 CPT: 73452 x2
--- NOTE | 2020-09-25 07:30 | RAD_ITS ---
STUDY: X-RAY - LUMBAR SPINE REASON FOR EXAM: Female, 64 years old. 360 FUSION L4-S1 WITH PEDICLE FIXATION TECHNIQUE: Single lateral view(s) of the lumbar spine were obtained. COMPARISON: None FINDINGS: The metallic localization instrument is seen along the anterior aspect of the L5-S1 disc space level. RAD/Spine 1 View Any Level IMPRESSION: Localization instrument is seen along the anterior aspect of the L5-S1 disc space level. Electronically Signed: Sanejev Edwards MD at 12:53 EDT , Service support ,
[2020-09-25] MEDS: Cefazolin 2 GM in 0.9% Normal Saline 100 ML IV (07:44)
[2020-09-25 08:10] LABS: Bedside Glucose 109 mg/dL (70-110)
[2020-09-25] MEDS: THROMBIN (RECOMBINANT) 20,000 UNIT VIAL 20000 UNIT TOPICAL (08:38)
[2020-09-25] MEDS: Heparin 10,000 UNITS/10 ML Vial 10000 UNITS (08:38)
--- NOTE | 2020-09-25 09:40 | RAD_ITS ---
STUDY: X-RAY - LUMBAR SPINE REASON FOR EXAM: Female, 64 years old. 360 FUSION L4-5, L5-S1 TECHNIQUE: 1 view(s) of the lumbar spine were obtained. COMPARISON: None FINDINGS: Single lateral view was obtained. The localization instrument is seen along the anterior aspect of the L4-L5 level. The patient is status post L5-S1 fusion with prosthetic disc. RAD/Spine 1 View Any Level IMPRESSION: The localization instrument is seen along the anterior aspect of the L4-L5 disc space level. Electronically Signed: Sanjeev Edwards MD at 13:50 EDT , Service support ,
--- NOTE | 2020-09-25 11:52 | RAD_ITS ---
STUDY: X-RAY - LUMBAR SPINE REASON FOR EXAM: Female, 64 years old. 360 FUSION, L4-5 L5-S1 TECHNIQUE: 1 view(s) of the lumbar spine were obtained. COMPARISON: None FINDINGS: Single intraoperative view was obtained. The patient is status post anterior fusion with disc prosthesis at the L4-L5 and L5-S1 levels. RAD/Spine 1 View Any Level IMPRESSION: Intraoperative imaging provided for anterior fusion at the L4-L5 and L5-S1 levels. Electronically Signed: Sanjeev Edwards MD at 15:41 EDT , Service support ,
--- NOTE | 2020-09-25 12:07 | RAD_ITS ---
HISTORY: 360 FUSION, L4-5, L5-S1. TECHNIQUE: XR Spine Lumbar 1 View. # of images incl. paperwork: 1. COMPARISON: MRI 07/31/2019. FINDINGS: VERTEBRAE: 5 lumbar vertebral bodies. Vertebral body heights maintained Degenerative changes of the posterior elements. ALIGNMENT: No significant anterior or posterior subluxation. INTERVERTEBRAL DISCS: Anterior spinal fusion hardware and interbody fusion material at L4-5 and L5-S1. RAD/Spine 1 View Any Level IMPRESSION: Satisfactory alignment of the lumbar spine status post L4-5 and L5-S1 fusion. at 1636 Reported and signed by: Divya Costa MD Electronically Signed: Divya Costa MD at 16:35 EDT Tel , Service support ,
--- NOTE | 2020-09-25 12:15 | PCM.OP.BLANK ---
Problems Associated Problem List Diagnoses (1) DDD (degenerative disc disease), lumbar: Operative Report Date of Procedure: 09/25/20 Preoperative diagnosis: Degenerative disc disease Postop diagnosis the same Surgeon Dr. Matias co-surgeon Dr. Feliciano Atkinson Operation: 1. Anterior lumbar interbody fusion L5-S1 and L4-L5. 2. Bone marrow aspirate and anterior plate L4-L5 and plate L5-S1 EBL: 400 cc Anesthesia: General Operation: Patient brought to the operating room. Underwent appropriate timeout consent. Underwent general anesthesia. All the appropriate monitoring lines were placed. Given appropriate antibiotics. Was then prepped and draped in a sterile fashion. 4 fingerbreadths above the pubic symphysis we did a curvilinear incision left lower quadrant. We dissected down onto the anterior fascia and excised this open. We freed up just to the midline and out past the rectus into the obliques. We freed up the anterior rectus superior and inferior. We then got lateral to the rectus into the retroperitoneal plane onto the iliopsoas. The put the Omni retractor and. We first dissected down onto the L5-S1 disc space. All venous branches ligated between 3-0 silk ties. There was some sacral vessels that had some bleeding that were cauterized and clipped. We marked that we were on L5-S1 confirmed with x-ray. Then underwent the discectomy and this was freed through its entirety. We also freed inferior and superior long and under the anterior longitudinal ligament. The cage was then placed in good position. Plate was placed with 225 mm screws in the L5 and 2 screws in S1. We then dissected up rearranging the retractors into the L4-L5 space. We confirmed with x-ray her at this space. At some difficulty through this getting the rectus to retract all the way to the medial. And with the vessels were right over the space. Freed up as much along the L4-L5 spaces we could and then underwent the discectomy. Were able to get this with a smaller cage into here that was 10 mm. This was then placed in with good position. Plate was placed but only able to get 1 screw in L4. 2 screws in L5. We put biofilm over both cages and released the retractors. There is good hemostasis. We then closed the anterior fascia with running strata fix and then closed with 2-0 and 3-0 Vicryl's in layers. Monocryl for the skin with Dermabond. I was present for the entirety of the anterior component. Patient will then be flipped over and the posterior all be done separately
--- NOTE | 2020-09-25 12:54 | OP.PCM_ITS ---
Report of Operation Date of Procedure: 09/25/20 Description of Surgical Findings:: Preoperative diagnosis: Severe degenerative disc disease L4-5 and L5-S1 Postoperative diagnoses: The same Procedure: #1 anterior fusion L5-S1 #2 anterior spine plate L5-S1 #3 insertion of cage L5-S1 #4 anterior fusion L4-5 #5 application of spine plate L4-5 #6 insertion of cage L4-5 Cosurgeons: Dr. Matias and Dr. Atkinson Veterinary Pharmacologist: Melissa SCHERER Anesthesia: General endotracheal anesthesia administered by [facility] Estimated blood loss 600 cc about half of it was given back to the patient via the Cell Saver Drains: None Complications: None Patient was taken to the OR where she was placed in the supine position on the operating table she was then placed under general endotracheal anesthesia. A Arce catheter was inserted. Neuro monitoring leads were inserted by the nail technician teacher. The abdomen was then prepped and draped in standard fashion. The surgical approach is described in Dr. Atkinson's operative summary. Once he had good exposure at L5-S1 I then began my portion. First I cut the anterior annulus of L5S1 removing it I then removed nucleus from within the disc base with pituitary rongeurs all the way back to the near the posterior longitudinal ligament. Using both bowl curettes and ring curettes the all the cartilage was removed including the cartilage off both endplates. I did use a bur to open the sides particularly the bottom of L5. We will make a flat place for the cage. We then took her measurements for the cage decided we would use a 12 mm cage. I then used a broach to broach the space and get good bleeding bone the endplates note that thorough irrigation was carried out frequently. Then used a 12 mm 35 x 25 mm cage that was 8 degrees then attempt tamped it into place and countersunk it a couple of millimeters. Note that prior to this I did fill the cage with DBM and the patient's own stem cells that were drawn from the bone marrow by the assistant manager pt Melissa amin. This was then spun down by the nail technician teacher in the room and the stem cells concentrated and from the other cells. The DBM in the cage was soaked in this prior to insertion. Once inserted we t hen used a 25mm plate and anteriorly by holding it in place we then were able to use the awl to punch each of the individual holes note that this part was done by Dr. Atkinson and he was integral in the entire case. He then put the screws in place 2 into L5 and 2 into S1. This was found to be very satisfactory as seen on a on the lateral projection of the x-ray. We then moved up to the L4-5 area note that this was a very difficult area and we had a great deal of difficulty exposing the entire anterior disc because of the vessels some were tied off and we got enough exposure to approach it a little bit more from the left side again I remove the annulus this in this fashion and removed nucleus from the disc base with pituitary rongeurs and ring curettes and bowl curettes I also used the bur to bur down the space at the back and on both sides. This was a tedious process. Once this was done I then used a 10 mm cage and inserted from the side and put it in place with this was found to be satisfactory size. We then removed it and used a broach in the same fashion and broach the space this was then removed thorough irrigation was carried out I then took the 10 mm high there was 25 x 35 and 8 degrees and filled both halves with the DBM that was soaked in the patient's stem cells we then tamped it into place from the side again. Once in place we were able to put a plate again cheating to the left side away from the vessels noted we use a 23 mm plate this time and was able to put a 1 screw into L4 and 2 into L5. Note that the second screw at L4 was not inserted purposely as it was standing to skive the side. It was simply left off. Then placed amniotic membranes over both plates to prevent adhesions to any of the vessels the closure is then described in Dr. Atkinson's operative summary. The end of operative summary Elizabeth Valdes. This is Dr. Matias dictating.
--- NOTE | 2020-09-25 15:39 | PCM.OPRPT ---
Report of Operation Date of Procedure: 09/25/20 Description of Surgical Findings:: Preoperative diagnosis is severe degenerative disc disease L4-5 and L5-S1 with status post L4-5 and L5-S1 decompression Postoperative diagnoses: The same Procedure: Bilateral lateral fusion L5-S1 Surgeon: Dr. Matias Mannequin Sander And Finisher: Melissa SCHERER Anesthesia: General endotracheal anesthesia administered by [facility] Estimated blood loss: 150 cc (note that we lost 600 cc on the front and lost 150 cc on the back giving us a total loss of 750 cc. 250 cc were returned to the patient via the Cell Saver) Drains: None Complications: None Procedure: Patient was taken to the OR where the anterior surgery was performed first once that was closed the patient was then placed in prone position on the Froylan frame after proper positioning with care to protect her bony prominences her breasts her brachial plexus her ulnar nerves and her cervical spine and facial features the back was prepped and draped standard fashion. Then made a longitudinal incision roughly where the old incision was. Subcutaneous tissues were incised length of skin incision. Note to be thoroughly irrigated with copious amounts of sterile saline frequently during the course of this case. Note that the spinous processes of 4 and 5 have been removed from the previous surgery. After going through the paravertebral muscles in the midline I skived to either direction elevated the paravertebral muscles off of the facets and the transverse process of L4-L5 and the ala of the sacrum. Once the structures were identified I used a bur to bur the transverse process of 4 5 and the ala of the sacrum. Once this was done we then used our SPARC bone graft after it was divided into equal amounts and place it out over the gutter over the transverse process of L4-L5 and S1 that is the ala. We also burred the facets at all the levels that is L4-5 and L5-S1 in for this we used demineralized bone matrix that was soaked in the patient's own stem cells from the anterior portion. I then moved to the opposite side of the table and did the same thing on the left side that is exposing the transverse process of 4 5 and the ala and the facets. The bur was then used to bur the structures and again the lateral gutters were filled with SPARC on the transverse processes and ala. The DBM was then used once soaked in the patient's stem cells over the facet joints of L4-5 and L5-S1. Note that her bleeding was well controlled and we did not feel that we needed a drain. Note that prior to the placement of the bone graft we did thoroughly irrigated with copious amounts of sterile saline on each side. A drain was not needed we closed the lumbar fascia using [id number] suture with #1 Vicryl for closure of the subcutaneous tissues in layers with 2-0 Vicryl and 0 Vicryl in interrupted fashion and skin was approximated using skin clips sterile dressings were then applied the patient was then recovered in the OR she was then moved to her hospital bed and taken to recovery in satisfactory condition. This is the end of operative summary on Elizabeth Valdes. This is Dr. Matias dictating.
--- NOTE | 2020-09-25 18:32 | PN.HOSP_ITS ---
Documented by User: Jesus SCHERER 09/25/20 18:43 Subjective Subjective Patient is a 64-year-old female resting comfortably after anterior lumbar fusion of L4-L5 and L5-S1. Patient was not able to provide much insight into her current condition as she was still in a mild state of disorientation after surg michael. Objective Data Objective Data Vital Signs: Vital Signs Temp Pulse Resp BP Pulse Ox 98.5 F 110 H 16 125/57 H 97 09/25/20 17:15 09/25/20 17:15 09/25/20 17:15 09/25/20 17:15 09/25/20 17:15 Oxygen Flow Rate (L/min) 6 Oxygen Delivery Method Simple Mask Weight: 190 lb 7.67 oz Body Mass Index (BMI) 18.9 Intake & Output: Intake and Output for Last 24 Hours 09/23/20 09/24/20 09/25/20 23:59 23:59 23:59 Intake Total 5465.5 / 5465.5 Output Total 310 / 310 Balance 5155.5 / 5155.5 Lab / Micro Data Result Diagrams: 09/17/20 09:12 09/17/20 09:12 Labs: Laboratory Results - last 24 hr 09/25/20 06:16 POC Glucose 109 Micro: Microbiology 09/17/20 09:12 Swab (Method) Nasal Screen MRSA/MSSA - Final Radiography Diagnostic Testing: Radiology Impression Spine X-Ray 09/25/20 07:30 IMPRESSION: Localization instrument is seen along the anterior aspect of the L5-S1 disc space level. Electronically Signed: Sanjeev Edwards MD at 12:53 EDT , Service support , Spine X-Ray 09/25/20 09:40 IMPRESSION: The localization instrument is seen along the anterior aspect of the L4-L5 disc space level. Electronically Signed: Sanjeev Edwards MD at 13:50 EDT , Service support , Spine X-Ray 09/25/20 11:52 IMPRESSION: Intraoperative imaging provided for anterior fusion at the L4-L5 and L5-S1 levels. Electronically Signed: Sanjeev Edwards MD at 15:41 EDT , Service support , Spine X-Ray 09/25/20 12:07 IMPRESSION: Satisfactory alignment of the lumbar spine status post L4-5 and L5-S1 fusion. at 1636 Reported and signed by: Divya Costa MD Electronically Signed: Divya Costa MD at 16:35 EDT Tel , Service support , Physical Exam Narrative Limited due to disorientation after surgery. Const alert Orientation / Consciousness: disoriented HEENT head/scalp atraumatic Head and Scalp: normocephalic Eyes conjunctivae normal Neck no lymphadenopathy, supple and no JVD Resp normal respiratory effort, no retractions, no use of accessory muscles and clear to auscultation bilaterally Cardio no murmurs and no JVD Rate: tachycardic GI normal to inspection, nondistended, normoactive bowel sounds and soft to palpation Extremity normal to inspection and no clubbing, cyanosis or edema Skin no rashes or lesions noted, no wounds and skin turgor normal Neuro Neuro Narrative: Unable to assess due to patient disorientation after surgery Psych Psych Narrative: Unable to assess due to patient disorientation after surgery Assessment & Plan Assessment/Plan (1) Asthma: QUALIFIERS: Asthma complication type: uncomplicated Asthma persistence: unspecified Asthma severity: unspecified severity Qualified Code(s): J45.909 - Unspecified asthma, uncomplicated (2) Depression: QUALIFIERS: Depression Type: unspecified Qualified Code(s): F32.9 - Major depressive disorder, single episode, unspecified (3) Overactive bladder: PLAN: Patient is a 64-year-old female who presents to the hospital medicine service on consult from the orthopedics department status post L4-L5 and L5-S1 fusion. 1) Asthma Continue albuterol & Dulera. 2) GERD Continue PPI 3) Depression Continue escitalopram. Patient seen by Jesus Jones PA-C, under the supervision of Dr. Rosales. Documented by User: Dr. Marco Rosales, 09/25/20 18:53 Objective Data Lab / Micro Data Result Diagrams: 09/17/20 09:12 09/17/20 09:12 Charges/Coding Addendum Addendum: Patient was seen and examined independently of Jesus Jones, she underwent surgery today for degenerative joint disease of her lumbar spine, she had a bilateral lateral fusion of L5 and S1. Patient was seen in recovery, she appeared to be comfortable and in no respiratory distress. Patient has a past medical history of asthma, depression, GERD, and degenerative disc disease of the lumbar spine. On examination she appeared in good health and spirits, she does not appear to be in any distress. Vital signs as documented. Skin warm and dry and without overt rashes. Neck without JVD, thyroid appears normal, trachea is midline, neck is supple. Lungs clear, normal air movement was noted. Heart exam notable for regular rhythm, normal sounds and absence of murmurs, rubs or gallops. Abdomen unremarkable and without evidence of organomegaly, masses, or abdominal aortic enlargement, bowel sounds are present in all 4 quadrants, no abdominal tenderness was noted. Extremities nonedematous, no cyanosis was noted, no clubbing was noted. Neuro: Cranial nerves II through XII are grossly intact, no focal motor deficits were noted, sensation to light touch and pinprick is intact, motor exam 5/5 throughout. Psych: Patient is alert and oriented x3, she does not appear anxious or depressed, she does not appear agitated. Patient appears stable postop at this time, patient's medications were reviewed. I have reviewed Jesus Geller's progress note including his medical assessment and plan of care and endorse it. Visit Charges Inpatient E&M: 04847 Subs Hosp L2
[2020-09-25] MEDS: diazePAM 5 MG Tablet PO (18:38)
[2020-09-25] MEDS: Morphine 4 MG/ML Syringe IV ×2 (18:38→20:46)
[2020-09-25] MEDS: traMADol 50 MG Tablet PO (20:01)
[2020-09-25] MEDS: 0.9% NaCl Peripheral Flush Adult/Peds IV (20:46)
[2020-09-25] MEDS: Cefazolin 1 GM/50 ML BAG IV (22:22)
[2020-09-25] MEDS: Senna/Docusate Sodium 1 Tablet 2 TABLET PO (22:23)
[2020-09-26] VITALS (9 sets, daily range): BP systolic 89–110; BP diastolic 44–59; PULSE 101–110; RESP 16–18; TEMP 36.4–37.3; O2SAT 88–99; BMI 31.1
[2020-09-26] MEDS: Morphine 4 MG/ML Syringe IV ×5 (00:19→23:21)
[2020-09-26] MEDS: 0.9% NaCl Peripheral Flush Adult/Peds IV ×4 (00:19→23:23)
[2020-09-26] MEDS: diazePAM 5 MG Tablet PO ×4 (01:35→20:47)
[2020-09-26] MEDS: Cefazolin 1 GM/50 ML BAG IV (06:13)
[2020-09-26] MEDS: Acetaminophen 500 MG Tablet 1000 MG PO ×2 (06:14→14:03)
[2020-09-26] MEDS: traMADol 50 MG Tablet PO (06:14)
[2020-09-26] MEDS: Budesonide Respules 0.5 MG/2 ML AMPUL.NEB. INHALATION (07:07)
[2020-09-26] MEDS: Ensure Surgery 237 ML LIQUID PO ×3 (08:23→17:32)
[2020-09-26] MEDS: Senna/Docusate Sodium 1 Tablet 2 TABLET PO ×2 (08:26→20:48)
[2020-09-26] MEDS: Pantoprazole Sodium 40 MG Tablet PO (08:26)
[2020-09-26] MEDS: Escitalopram Oxalate 20 MG Tablet PO (08:27)
[2020-09-26] MEDS: Tolterodine Tartrate 4 MG CAP.SA PO (08:27)
[2020-09-26] MEDS: HYDROcodone Bitartrate/Apap 5/325 Tablet PO ×3 (10:11→20:47)
--- NOTE | 2020-09-26 10:40 | CASEMGMT ---
RN CM Face to Face with patient for initial transition planning/care coordination assessment. RN CM introduced self and role at [facility]. Patient lying in bed, alert and oriented. Patient willing to participate in assessment and is able to answer all questions appropriately. Care providers, pharmacy, and demographics verified. Patient wishes to discharge home, denies need for home health at this time. Patient states she has no further needs or concerns at this time. CM to follow for discharge planning needs that may arise. PCP: Nicolás Specialists: Florencio Spinal surgeon Preferred Pharmacy: [facility] Insurance: MMO Prescription Benefit: yes Living Will/HPOA: yes, Miriam Todd, HPOA LNOK: cousin Living Arrangements: Patient lives with cousin in a 2 story home with bed and bath on first floor. 2 steps and railing to enter the home. Patient states she was independent at home prior to surgery Transportation: self, cousin, friend, or [facility] Van DME/HHC: Patient states she has shower chair, cane, walker at home. Patient denies previous HHC or SNF. Disposition Plan: Patient to discharge home with family support and follow-up plans in place. Purnima HANCOCK, RN, CM
--- NOTE | 2020-09-26 12:13 | PCM.PROGNOTE ---
Subjective Subjective Patient doing well. Moderate pain but is adequately controlled. Good perfusion down her legs. Objective Data Objective Data Vital Signs: Vital Signs Temp Pulse Resp BP Pulse Ox 98.6 F 104 H 16 89/44 L 95 09/26/20 08:56 09/26/20 08:56 09/26/20 08:56 09/26/20 08:56 09/26/20 08:56 Oxygen Flow Rate (L/min) 2 Oxygen Delivery Method Room Air Weight: 198 lb 13.711 oz Body Mass Index (BMI) 31.1 Intake & Output: Intake and Output for Last 24 Hours 09/24/20 09/25/20 09/26/20 23:59 23:59 23:59 Intake Total 6208.83 / 6668.83 1136.67 / 1136.67 Output Total 310 / 1410 1700 / 1700 Balance 5898.83 / 5258.83 -563.33 / -563.33 Lab / Micro Data Result Diagrams: 09/17/20 09:12 09/17/20 09:12 Micro: Microbiology 09/17/20 09:12 Swab (Method) Nasal Screen MRSA/MSSA - Final Radiography Diagnostic Testing: Radiology Impression Spine X-Ray 09/25/20 07:30 IMPRESSION: Localization instrument is seen along the anterior aspect of the L5-S1 disc space level. Electronically Signed: Sanjeev Edwards MD at 12:53 EDT , Service support , Spine X-Ray 09/25/20 09:40 IMPRESSION: The localization instrument is seen along the anterior aspect of the L4-L5 disc space level. Electronically Signed: Sanjeev Edwards MD at 13:50 EDT , Service support , Spine X-Ray 09/25/20 11:52 IMPRESSION: Intraoperative imaging provided for anterior fusion at the L4-L5 and L5-S1 levels. Electronically Signed: Sanjeev Edwards MD at 15:41 EDT , Service support , Spine X-Ray 09/25/20 12:07 IMPRESSION: Satisfactory alignment of the lumbar spine status post L4-5 and L5-S1 fusion. at 1636 Reported and signed by: Divya Costa MD Electronically Signed: Divya Costa MD at 16:35 EDT Tel , Service support , Physical Exam Narrative Patient awake alert oriented Mild discomfort Afebrile vital signs stable Abdomen soft slightly distended Extremities palpable pulses Assessment & Plan Assessment/Plan (1) DDD (degenerative disc disease), lumbar: PLAN: Patient doing well status post 2 level 360 fusion. Continue increase activity as tolerated.
--- NOTE | 2020-09-26 14:12 | PCM.PN.HOSP ---
Subjective Subjective Patient has severe back pain more so after surgery. Patient had a urine retention yesterday and straight catheterization later on Arce catheterization. Blood pressure is on lower side but seems her baseline runs around 110 systolic. Patient states tramadol is not working and wants to be back on Vicodin. Patient is also allergic to Dilaudid, oxycodone and codeine and had rash in the past. Objective Data Objective Data Vital Signs: Vital Signs Temp Pulse Resp BP Pulse Ox 98.6 F 104 H 16 89/44 L 95 09/26/20 08:56 09/26/20 08:56 09/26/20 08:56 09/26/20 08:56 09/26/20 08:56 Oxygen Flow Rate (L/min) 2 Oxygen Delivery Method Room Air Weight: 198 lb 13.711 oz Body Mass Index (BMI) 31.1 Intake & Output: Intake and Output for Last 24 Hours 09/24/20 09/25/20 09/26/20 23:59 23:59 23:59 Intake Total 6208.83 / 6668.83 1586.67 / 1586.67 Output Total 310 / 1410 1700 / 1700 Balance 5898.83 / 5258.83 -113.33 / -113.33 Lab / Micro Data Result Diagrams: 09/17/20 09:12 09/17/20 09:12 Micro: Microbiology 09/17/20 09:12 Swab (Method) Nasal Screen MRSA/MSSA - Final Radiography Diagnostic Testing: Radiology Impression Spine X-Ray 09/25/20 11:52 IMPRESSION: Intraoperative imaging provided for anterior fusion at the L4-L5 and L5-S1 levels. Electronically Signed: Sanjeev Edwards MD at 15:41 EDT , Service support , Spine X-Ray 09/25/20 12:07 IMPRESSION: Satisfactory alignment of the lumbar spine status post L4-5 and L5-S1 fusion. at 1636 Reported and signed by: Divya Costa MD Electronically Signed: Divya Costa MD at 16:35 EDT Tel , Service support , Physical Exam Narrative General: Alert, Oriented x3, Cooperative in severe pain. HEENT: Atraumatic, PERRLA, EOMI, Normocephalic Oral: No Gingival or Mucosal Lesions/ Ulcerations Neck: Supple, No JVD, Negative Carotid Bruits Lungs: Air entry diminished in bilateral lung bases. No crepitation/rhonchi Cardiovascular: Regular rate, Regular Rhythm, Normal S1, Normal S2, No murmurs Abdomen: Bowel Sounds Present, Soft, Non Tender, Non-Distended : Arce catheter draining yellow urine. No renal angle tenderness. No suprapubic tenderness. Extremities: No edema, Capillary Refill Less than 3 Seconds Skin: No rashes, No breakdown Musculoskeletal/spine: Surgical dressing has sustained a small localized. Tenderness present around the surgical site. No palpable swelling or hematoma. ROM restricted. Neurological: Cranial nerves II-XII grossly intact, Deep Tendon Reflexes 2+/4 and Symmetrical, Neuro grossly intact Psych/Mental Status: Normal Affect, Appropriate. Assessment & Plan Assessment/Plan (1) DDD (degenerative disc disease), lumbar: (2) Spinal stenosis at L4-L5 level: (3) Overactive bladder: PLAN: Patient is a 64-year-old female who is admitted on orthopedic/spine service by Dr. Matias for elective lumbar spine surgery. Hospitalist service is being consulted for medical management. 1. Severe degenerative disc disease L4-5 and L5-S1 status post L4-5 and L5-S1 decompression: Patient had bilateral lateral fusion of L5-S1 on her operative note, it is mention patient had anterior spine plate L5-S1, insertion of cage L5-S1 and L4-L5. Vicodin resumed on patient's request. Tramadol discontinued. On morphine IV for severe pain 1) Asthma: Stable. No exacerbation. Continue albuterol & Dulera. 2) GERD Continue PPI 3) Depression Continue escitalopram. 4. Low blood pressure: Blood pressure currently in systolic 90s as patient does not have symptoms of dizziness or hypotension. Usually her blood pressure runs on systolic 100s to 110s VTE prophylaxis bilateral SCDs. Pharmacological prophylaxis as per discretion of spine surgeon, Dr. Matias Charges/Coding Visit Charges Inpatient E&M: 39645 Subs Hosp L2
--- NOTE | 2020-09-26 16:26 | PCM.PN.ORT ---
Objective Data Objective Data Vital Signs: Vital Signs Temp Pulse Resp BP Pulse Ox 98.4 F 101 H 16 110/51 L 95 09/26/20 14:16 09/26/20 14:16 09/26/20 14:16 09/26/20 14:16 09/26/20 14:16 Oxygen Flow Rate (L/min) 2 Oxygen Delivery Method Room Air Weight: 198 lb 13.711 oz Body Mass Index (BMI) 31.1 Intake & Output: Intake and Output for Last 24 Hours 09/24/20 09/25/20 09/26/20 23:59 23:59 23:59 Intake Total 6208.83 / 6668.83 1586.67 / 1586.67 Output Total 310 / 1410 1700 / 1700 Balance 5898.83 / 5258.83 -113.33 / -113.33 Lab / Micro Data Result Diagrams: 09/17/20 09:12 09/17/20 09:12 Micro: Microbiology 09/17/20 09:12 Swab (Method) Nasal Screen MRSA/MSSA - Final Radiography Diagnostic Testing: Radiology Impression Spine X-Ray 09/25/20 12:07 IMPRESSION: Satisfactory alignment of the lumbar spine status post L4-5 and L5-S1 fusion. at 1636 Reported and signed by: Divya Costa MD Electronically Signed: Divya Costa MD at 16:35 EDT Tel , Service support , Procedure Criteria Elective Risks - COVID COVID Risk Discussion: Postop day #1: Patient is resting well. Neurologically she is intact in both lower extremities. Her only complaint is that of some back pain and some abdominal pain. Likely she has already been having some flatulence and on examination her abdomen is relatively soft. Nonetheless we will keep her on clear liquids for now. The dressings are dry. She has her already been up with a walker walking within the room. She states that her pain is tolerable. Progress is satisfactory.
[2020-09-27] VITALS (9 sets, daily range): BP systolic 102–152; BP diastolic 55–81; PULSE 90–111; RESP 16–20; TEMP 36.7–37.6; O2SAT 90–97
[2020-09-27] MEDS: HYDROcodone Bitartrate/Apap 5/325 Tablet PO ×5 (01:56→20:22)
[2020-09-27] MEDS: Acetaminophen 500 MG Tablet 1000 MG PO ×2 (06:19→22:50)
[2020-09-27] MEDS: Budesonide Respules 0.5 MG/2 ML AMPUL.NEB. INHALATION ×2 (07:25→19:57)
[2020-09-27] MEDS: Morphine 4 MG/ML Syringe IV ×3 (09:47→22:50)
[2020-09-27] MEDS: 0.9% NaCl Peripheral Flush Adult/Peds IV ×3 (09:48→22:49)
[2020-09-27] MEDS: Ensure Surgery 237 ML LIQUID PO ×3 (09:55→17:15)
[2020-09-27] MEDS: Pantoprazole Sodium 40 MG Tablet PO (09:55)
[2020-09-27] MEDS: Tolterodine Tartrate 4 MG CAP.SA PO (09:55)
[2020-09-27] MEDS: diazePAM 5 MG Tablet PO ×2 (09:56→17:26)
[2020-09-27] MEDS: Escitalopram Oxalate 20 MG Tablet PO (09:56)
--- NOTE | 2020-09-27 10:22 | PCM.PN.ORT ---
Objective Data Objective Data Vital Signs: Vital Signs Temp Pulse Resp BP Pulse Ox 98.3 F 90 16 110/55 L 93 09/27/20 08:04 09/27/20 08:04 09/27/20 08:04 09/27/20 08:04 09/27/20 07:54 Oxygen Flow Rate (L/min) 2 Oxygen Delivery Method Room Air Weight: 198 lb 13.711 oz Body Mass Index (BMI) 31.1 Intake & Output: Intake and Output for Last 24 Hours 09/25/20 09/26/20 09/27/20 23:59 23:59 23:59 Intake Total 6208.83 / 6668.83 1986.67 / 1985.67 250 / 250 Output Total 310 / 1410 2400 / 2400 Balance 5898.83 / 5258.83 -413.33 / -413.33 250 / 250 Lab / Micro Data Result Diagrams: 09/17/20 09:12 09/17/20 09:12 Micro: Microbiology 09/17/20 09:12 Swab (Method) Nasal Screen MRSA/MSSA - Final Procedure Criteria Elective Risks - COVID COVID Risk Discussion: Postop day #2. Elizabeth has good bowel sounds today and she actually had a bowel movement. That is a very good sign. Dressings are both dry and neurologically she is intact. Her pain level is about a 6/10 so we will continue her on the morphine. We will see how she is doing tomorrow it is even possible that she may go home tomorrow. If not it will be Thursday. Progress is satisfactory.
--- NOTE | 2020-09-27 15:08 | PCM.PN.HOSP ---
Subjective Subjective Her back pain is better than yesterday. She still feels stiff back in the difficulty turning around. Objective Data Objective Data Vital Signs: Vital Signs Temp Pulse Resp BP Pulse Ox 98.6 F 108 H 17 102/56 L 90 09/27/20 14:07 09/27/20 14:07 09/27/20 14:07 09/27/20 14:07 09/27/20 14:07 Oxygen Flow Rate (L/min) 2 Oxygen Delivery Method Room Air Weight: 198 lb 13.711 oz Body Mass Index (BMI) 31.1 Intake & Output: Intake and Output for Last 24 Hours 09/25/20 09/26/20 09/27/20 23:59 23:59 23:59 Intake Total 6208.83 / 6668.83 1986.67 / 1985.67 600 / 600 Output Total 310 / 1410 2400 / 2400 600 / 600 Balance 5898.83 / 5258.83 -413.33 / -413.33 0 / 0 Lab / Micro Data Result Diagrams: 09/17/20 09:12 09/17/20 09:12 Micro: Microbiology 09/17/20 09:12 Swab (Method) Nasal Screen MRSA/MSSA - Final Physical Exam Narrative General: Alert, Oriented x3, Cooperative in severe pain. HEENT: Atraumatic, PERRLA, EOMI, Normocephalic Oral: No Gingival or Mucosal Lesions/ Ulcerations Neck: Supple, No JVD, Negative Carotid Bruits Lungs: Air entry diminished in bilateral lung bases. No crepitation/rhonchi Cardiovascular: Regular rate, Regular Rhythm, Normal S1, Normal S2, No murmurs Abdomen: Bowel Sounds Present, Soft, Non Tender, Non-Distended : Arce catheter draining yellow urine. No renal angle tenderness. No suprapubic tenderness. Extremities: No edema, Capillary Refill Less than 3 Seconds Skin: No rashes, No breakdown Musculoskeletal/spine: Surgical dressing over lumbar area is dry. Mild tenderness present around the surgical site. No palpable swelling or hematoma. ROM restricted. Neurological: Cranial nerves II-XII grossly intact, Deep Tendon Reflexes 2+/4 and Symmetrical, Neuro grossly intact Psych/Mental Status: Normal Affect, Appropriate. Assessment & Plan Assessment/Plan (1) DDD (degenerative disc disease), lumbar: (2) Spinal stenosis at L4-L5 level: (3) Overactive bladder: PLAN: Patient is a 64-year-old female who is admitted on orthopedic/spine service by Dr. Matias for elective lumbar spine surgery. Hospitalist service is being consulted for medical management. 1. Severe degenerative disc disease L4-5 and L5-S1 status post L4-5 and L5-S1 decompression: Patient had bilateral lateral fusion of L5-S1 on her operative note, it is mention patient had anterior spine plate L5-S1, insertion of cage L5-S1 and L4-L5. Vicodin resumed on patient's request. Tramadol discontinued. On morphine IV for severe pain 09/27: Continue pain medication and a stool softener. Seen by Dr. Matias. Satisfactory progress. 1) Asthma: Stable. No exacerbation. Continue albuterol & Dulera. 2) GERD Continue PPI 3) Depression Continue escitalopram. 4. Low blood pressure: Blood pressure currently in systolic 90s as patient does not have symptoms of dizziness or hypotension. Usually her blood pressure runs on systolic 100s to 110s VTE prophylaxis bilateral SCDs. Pharmacological prophylaxis as per discretion of spine surgeon, Dr. Matias Charges/Coding Visit Charges Inpatient E&M: 57450 Subs Hosp L2
[2020-09-27] MEDS: Albuterol 2.5 MG/3 ML VIAL.NEB. INHALATION (19:57)
[2020-09-28 05:20] VITALS: BP 150/75; PULSE 105; RESP 18; TEMP 36.7; O2SAT 95
[2020-09-28] MEDS: Acetaminophen 500 MG Tablet 1000 MG PO (06:35)
[2020-09-28] MEDS: HYDROcodone Bitartrate/Apap 5/325 Tablet PO ×4 (06:41→22:19)
[2020-09-28 07:21] VITALS: O2SAT 96
[2020-09-28 09:10] VITALS: BP 154/78; PULSE 94; RESP 16; TEMP 37.1; O2SAT 93
[2020-09-28] MEDS: Morphine 4 MG/ML Syringe IV ×2 (09:10→19:48)
[2020-09-28] MEDS: 0.9% NaCl Peripheral Flush Adult/Peds IV ×3 (09:14→22:20)
[2020-09-28] MEDS: diazePAM 5 MG Tablet PO ×3 (09:14→22:18)
[2020-09-28] MEDS: Escitalopram Oxalate 20 MG Tablet PO (09:15)
[2020-09-28] MEDS: Tolterodine Tartrate 4 MG CAP.SA PO (09:15)
[2020-09-28] MEDS: Pantoprazole Sodium 40 MG Tablet PO (09:17)
[2020-09-28] MEDS: Senna/Docusate Sodium 1 Tablet 2 TABLET PO ×2 (09:17→22:18)
--- NOTE | 2020-09-28 12:48 | PCM.PN.ORT ---
Objective Data Objective Data Vital Signs: Vital Signs Temp Pulse Resp BP Pulse Ox 98.8 F 94 16 154/78 H 93 09/28/20 09:10 09/28/20 09:10 09/28/20 09:10 09/28/20 09:10 09/28/20 09:10 Oxygen Flow Rate (L/min) 2 Oxygen Delivery Method Room Air Weight: 198 lb 13.711 oz Body Mass Index (BMI) 31.1 Intake & Output: Intake and Output for Last 24 Hours 09/26/20 09/27/20 09/28/20 23:59 23:59 23:59 Intake Total 1985.67 / 1985.67 1100 / 1400 500 / 500 Output Total 2400 / 2400 1200 / 1450 550 / 550 Balance -413.33 / -413.33 -100 / -50 -50 / -50 Lab / Micro Data Result Diagrams: 09/17/20 09:12 09/17/20 09:12 Micro: Microbiology 09/17/20 09:12 Swab (Method) Nasal Screen MRSA/MSSA - Final Procedure Criteria Elective Risks - COVID COVID Risk Discussion: Postop day #3. Elizabeth is doing even better today than she was yesterday but she still has a lot of air in her abdomen. We will hold her here one more day helps that she has more for flatulence and feels better. Neurologically she is intact. Her dressings are both intact. I told her that I would give her full instructions tomorrow when she goes home presumptively in the morning.
--- NOTE | 2020-09-28 15:13 | PCM.PN.HOSP ---
Subjective Subjective Pain or fever. Patient back pain is better. Objective Data Objective Data Vital Signs: Vital Signs Temp Pulse Resp BP Pulse Ox 98.8 F 94 16 154/78 H 93 09/28/20 09:10 09/28/20 09:10 09/28/20 09:10 09/28/20 09:10 09/28/20 09:10 Oxygen Flow Rate (L/min) 2 Oxygen Delivery Method Room Air Weight: 198 lb 13.711 oz Body Mass Index (BMI) 31.1 Intake & Output: Intake and Output for Last 24 Hours 09/26/20 09/27/20 09/28/20 23:59 23:59 23:59 Intake Total 1986.67 / 1986.67 1100 / 1400 900 / 900 Output Total 2400 / 2400 1200 / 1450 1150 / 1150 Balance -413.33 / -413.33 -100 / -50 -250 / -250 Lab / Micro Data Result Diagrams: 09/17/20 09:12 09/17/20 09:12 Micro: Microbiology 09/17/20 09:12 Swab (Method) Nasal Screen MRSA/MSSA - Final Physical Exam Narrative General: Alert, Oriented x3, Cooperative in severe pain. HEENT: Atraumatic, PERRLA, EOMI, Normocephalic Oral: No Gingival or Mucosal Lesions/ Ulcerations Neck: Supple, No JVD, Negative Carotid Bruits Lungs: Air entry diminished in bilateral lung bases. No crepitation/rhonchi Cardiovascular: Regular rate, Regular Rhythm, Normal S1, Normal S2, No murmurs Abdomen: Bowel Sounds Present, Soft, Non Tender, Non-Distended : Arce catheter draining yellow urine. No renal angle tenderness. No suprapubic tenderness. Extremities: No edema, Capillary Refill Less than 3 Seconds Skin: No rashes, No breakdown Musculoskeletal/spine: Surgical dressing over lumbar area has dry stain.. Mild tenderness present around paraspinal muscles. No palpable swelling or hematoma. ROM restricted. Neurological: Cranial nerves II-XII grossly intact, Deep Tendon Reflexes 2+/4 and Symmetrical, Neuro grossly intact Psych/Mental Status: Normal Affect, Appropriate. Assessment & Plan Assessment/Plan (1) DDD (degenerative disc disease), lumbar: (2) Spinal stenosis at L4-L5 level: (3) Overactive bladder: PLAN: Patient is a 64-year-old female who is admitted on orthopedic/spine service by Dr. Matias for elective lumbar spine surgery. Hospitalist service is being consulted for medical management. 1. Severe degenerative disc disease L4-5 and L5-S1 status post L4-5 and L5-S1 decompression: Patient had bilateral lateral fusion of L5-S1 on her operative note, it is mention patient had anterior spine plate L5-S1, insertion of cage L5-S1 and L4-L5. Vicodin resumed on patient's request. Tramadol discontinued. On morphine IV for severe pain 09/27: Continue pain medication and a stool softener. Seen by Dr. Matias. Satisfactory progress. 09/28: Pain is better controlled. Advised laying on lateral side. PT and OT to continue. 1) Asthma: Stable. No exacerbation. Continue albuterol & Dulera. 2) GERD Continue PPI 3) Depression Continue escitalopram. 4. Low blood pressure: Blood pressure currently in systolic 90s as patient does not have symptoms of dizziness or hypotension. Usually her blood pressure runs on systolic 100s to 110s VTE prophylaxis bilateral SCDs. Pharmacological prophylaxis as per discretion of spine surgeon, Dr. Matias Charges/Coding Visit Charges Inpatient E&M: 70866 Subs Hosp L2
[2020-09-28 16:05] VITALS: BP 104/62; PULSE 101; RESP 18; TEMP 37.1; O2SAT 96
[2020-09-28 22:05] VITALS: BP 136/83; PULSE 96; RESP 20; TEMP 37.8; O2SAT 98
[2020-09-29 04:24] VITALS: BP 160/93; PULSE 98; RESP 20; TEMP 36.9; O2SAT 98
[2020-09-29] MEDS: HYDROcodone Bitartrate/Apap 5/325 Tablet PO ×3 (04:24→13:49)
[2020-09-29] MEDS: Budesonide Respules 0.5 MG/2 ML AMPUL.NEB. INHALATION (07:11)
[2020-09-29 07:13] VITALS: PULSE 95; RESP 16; O2SAT 96
[2020-09-29 08:20] VITALS: PULSE 84
[2020-09-29 10:13] LABS: Absolute Lymphocyte Count 1.13 X10^3/uL (0.83-4.51); Absolute Neutrophil Count 4.9 X10^3/uL (2.0-7.7); Basophil# 0.02 X10^3/uL; Basophil% 0.3 % (0-1); Eosinophil# 0.45 X10^3/uL; Eosinophils% 6.3 % (0-5); Hematocrit 27.8 % (37-47); Lymphocyte # 1.13 X10^3/ul (0.83-4.51); Lymphocyte % 15.8 % (19-41); Mean Corp Hgb Conc 32.4 g/dL (32-36); Mean Corpuscular Volume 89.7 fL (81-99); Mean Platelet Vol. 10.1 fl (6.2-12.0); Monocyte% 8.4 % (0-10); NRBC Flagged by Analyzer 0 % (0-5); Neutrophil % 68.6 % (47-70); Platelet Count 211 K/mm3 (150-450); RBC Distribution Width SD 42.5 fl (35.1-43.9); White Blood Count 7.1 K/mm3 (4.4-11.0)
[2020-09-29 10:20] VITALS: BP 126/73; PULSE 88; RESP 18; TEMP 37.2; O2SAT 95
[2020-09-29] MEDS: Tolterodine Tartrate 4 MG CAP.SA PO (10:24)
[2020-09-29] MEDS: Escitalopram Oxalate 20 MG Tablet PO (10:24)
[2020-09-29] MEDS: diazePAM 5 MG Tablet PO (10:25)
[2020-09-29] MEDS: Senna/Docusate Sodium 1 Tablet 2 TABLET PO (10:25)
[2020-09-29] MEDS: Pantoprazole Sodium 40 MG Tablet PO (10:25)
[2020-09-29 10:41] LABS: ALB/GLOB Ratio 0.6 RATIO (0.9-2.4); AST(SGOT) 27 U/L (15-37); Alanine Aminotransfer ALT/SGPT 28 U/L (13-56); Albumin, Serum 2.4 g/dL (3.2-5.0); Alkaline Phosphatase 133 U/L (45-117); Anion Gap 5 (5-15); BUN 9 mg/dL (7-18); BUN/Creat Ratio 12.6 RATIO (10-20); Calcium,Total 8.7 mg/dL (8.5-10.1); Chloride 105 mmol/L (98-107); Creatinine, Serum 0.71 mg/dL (0.55-1.02); EST Glomerular Filtration Rate 88 mL/min (>60); Est Glom Filt Rate - Afr Amer 106 mL/min (>60); Estimated Creatinine Clearance 78.87 ml/min; Globulin 3.8 g/dL (2.2-4.2); Glucose 100 mg/dL (74-106); Potassium 3.7 mmol/L (3.5-5.1); Protein, Total 6.2 g/dL (6.4-8.2); Sodium Level 141 mmol/L (136-145)
--- NOTE | 2020-09-29 11:47 | PCM.PN.HOSP ---
Subjective Subjective Patient had low-grade fever, temperature 100 Fahrenheit last night. No tachycardia. Patient denies cough, shortness of breath, abdominal pain. Objective Data Objective Data Vital Signs: Vital Signs Temp Pulse Resp BP Pulse Ox 99.0 F 88 18 126/73 H 95 09/29/20 10:20 09/29/20 10:20 09/29/20 10:20 09/29/20 10:20 09/29/20 10:20 Oxygen Flow Rate (L/min) 2 Oxygen Delivery Method Room Air Weight: 198 lb 13.711 oz Body Mass Index (BMI) 31.1 Intake & Output: Intake and Output for Last 24 Hours 09/27/20 09/28/20 09/29/20 23:59 23:59 23:59 Intake Total 1100 / 1400 1400 / 1600 300 / 300 Output Total 1200 / 1450 1550 / 1950 800 / 800 Balance -100 / -50 -150 / -350 -500 / -500 Lab / Micro Data Result Diagrams: 09/29/20 10:00 09/29/20 10:00 Labs: Laboratory Results - last 24 hr 09/29/20 09/29/20 10:00 10:00 WBC 7.1 RBC 3.10 L Hgb 9.0 L Hct 27.8 L MCV 89.7 MCH 29.0 MCHC 32.4 RDW Std Deviation 42.5 RDW Coeff of Vanessa 13.0 Plt Count 211 MPV 10.1 Immature Gran % (Auto) 0.600 Neut % (Auto) 68.6 Lymph % (Auto) 15.8 L [place] % (Auto) 8.4 Eos % (Auto) 6.3 H Baso % (Auto) 0.3 Absolute Neuts (auto) 4.9 Absolute Lymphs (auto) 1.13 Nucleated RBC % 0 Sodium 141 Potassium 3.7 Chloride 105 Carbon Dioxide 31.0 Anion Gap 5 BUN 9 Creatinine 0.71 Estim Creat Clear Calc 78.87 Est GFR (MDRD) Af Amer 106 Est GFR (MDRD) Non-Af 88 BUN/Creatinine Ratio 12.6 Glucose 100 Calcium 8.7 Total Bilirubin 0.80 AST 27 ALT 28 Alkaline Phosphatase 133 H Total Protein 6.2 L Albumin 2.4 L Globulin 3.8 Albumin/Globulin Ratio 0.6 L Micro: Microbiology 09/17/20 09:12 Swab (Method) Nasal Screen MRSA/MSSA - Final Physical Exam Narrative General: Alert, Oriented x3, Cooperative in severe pain. HEENT: Atraumatic, PERRLA, EOMI, Normocephalic Oral: No Gingival or Mucosal Lesions/ Ulcerations Neck: Supple, No JVD, Negative Carotid Bruits Lungs: Air entry diminished in bilateral lung bases. No crepitation/rhonchi Cardiovascular: Regular rate, Regular Rhythm, Normal S1, Normal S2, No murmurs Abdomen: Bowel Sounds Present, Soft, Non Tender, Non-Distended : Arce catheter draining yellow urine. No renal angle tenderness. No suprapubic tenderness. Extremities: No edema, Capillary Refill Less than 3 Seconds Skin: No rashes, No breakdown Musculoskeletal/spine: Surgical dressing over lumbar area has dry stain.. Mild tenderness present around paraspinal muscles. No palpable swelling or hematoma. ROM over lumbar spine is improving. Neurological: Cranial nerves II-XII grossly intact, Deep Tendon Reflexes 2+/4 and Symmetrical, Neuro grossly intact Psych/Mental Status: Normal Affect, Appropriate. Assessment & Plan Assessment/Plan (1) DDD (degenerative disc disease), lumbar: (2) Spinal stenosis at L4-L5 level: (3) Overactive bladder: PLAN: Patient is a 64-year-old female who is admitted on orthopedic/spine service by Dr. Matias for elective lumbar spine surgery. Hospitalist service is being consulted for medical management. 1. Severe degenerative disc disease L4-5 and L5-S1 status post L4-5 and L5-S1 decompression: Patient had bilateral lateral fusion of L5-S1 on her operative note, it is mention patient had anterior spine plate L5-S1, insertion of cage L5-S1 and L4-L5. Vicodin resumed on patient's request. Tramadol discontinued. On morphine IV for severe pain 09/27: Continue pain medication and a stool softener. Seen by Dr. Matias. Satisfactory progress. 09/28: Pain is better controlled. Advised laying on lateral side. PT and OT to continue. 09/29: Low-grade fever. No leukocytosis. H&H 9.0/27%. Electrolytes in normal limit. Transaminases normal. Alkaline phosphatase 133. Portable chest x-ray ordered. 1) Asthma: Stable. No exacerbation. Continue albuterol & Dulera. 2) GERD Continue PPI 3) Depression Continue escitalopram. 4. Low blood pressure: Blood pressure currently in systolic 90s as patient does not have symptoms of dizziness or hypotension. Usually her blood pressure runs on systolic 100s to 110s VTE prophylaxis bilateral SCDs. Pharmacological prophylaxis as per discretion of spine surgeon, Dr. Matias Charges/Coding Visit Charges Inpatient E&M: 81254 Subs Hosp L2
--- NOTE | 2020-09-29 11:50 | RAD_ITS ---
STUDY: X-RAY CHEST REASON FOR EXAM: Female, 64 years old. low grade fever last night, no cough/SOB TECHNIQUE: Single AP portable view of the chest. COMPARISON: None. FINDINGS: The lungs are clear and expanded. There is no demonstrated pleural abnormality. Normal size heart. Normal mediastinum and bertrand. Normal visualized pulmonary arteries. There is atherosclerotic tortuosity of the aortic arch and descending thoracic aorta. Normal visualized thoracic spine. There is degenerative osteoarthritis of the bilateral shoulders. There is no demonstrated abnormality of the visualized soft tissue structures of the upper abdomen. RAD/Chest 1 View (Portable) IMPRESSION: Normal x-ray examination of the chest for age. Electronically Signed: Rebecca Perez MD at 0:13 EDT , Service support ,
--- NOTE | 2020-09-29 12:39 | PCM.DC ---
Discharge Instructions Diet Discharge Diet: No restrictions Activity Discharge Activity: May Not Drive May shower in (days): 3 May resume sexual activity in: 4-6 weeks Weight Bearing Status: Full weight bearing Lifting Restrictions: 15# Dressing / Incision Call your doctor if your incision/area has: Continuous Slow Oozing, Increased Pain/ Swelling and Foul Smelling Discharge Call your doctor if you observe: Fever of 101 or Higher, Inability to urinate, Shortness of breath, Fainting spells, Calf discomfort and Uncontrolled pain Suture Line Care: Avoid Pulling/Pushing and Avoid Pinching/Bending Remove Dressing in: 2 days Cleanse incision/area with: Soap & Water Follow Up Care Please Follow Up With: Cresencio Matias DO When: already has appointment Test Results: Test results from this visit will be discussed in further detail at your follow-up appointment, if applicable. Discharge Plan Admission Admit Date/Time: 09/25/20 05:28 Primary Reason for Your Visit: surgery Attending Provider: Cresencio Matias Primary Care Provider: Eagle Monzon Consulting Providers: Marco Rosales Instructions Patient Instructions: ED Chest Pain, Noncardiac Discharge Orders/Prescriptions Prescriptions: No Action tolterodine 4 mg capsule,extended release 24hr 4 mg PO DAILY RF: 0 omeprazole 40 MG capsule,delayed release(DR/EC) 40 mg PO DAILY RF: 0 escitalopram oxalate 20 MG tablet 20 mg PO DAILY RF: 0 albuterol sulfate 1 INHALER inhaler 1 - 2 puff INHALATION Q6H PRN PRN (Reason: Sob &/Or Wheezing) RF: 0 Dulera 8.8 GM HFA aerosol inhaler 2 puff IH BID RF: 0 cholecalciferol (vitamin D3) [Vitamin D3] 50 mcg (2,000 unit) Capsule 50 mcg PO DAILY RF: 0 tramadol 50 mg tablet 50 mg PO Q6H PRN (Reason: pain) Qty: 40 RF: 0 Referrals / Follow Up: Eagle Monzon MD [Primary Care Provider] - Disposition Disposition (needs filled in before D/C Order can be placed): Home, self care
--- NOTE | 2020-09-29 12:46 | PCM.DC.SUM ---
Providers Date of Admission: 09/25/20 Primary Care Physician: Dr. Eagle Monzon MD Consultations 09/25/20 12:29 Consult: Hospitalist Routine Consulting Provider: Marco Rosales Reason for Consult: Medical Management EMERGENT Consult: No MD Notified: Yes Date Notified: 09/25/20 Time Notified: 17:23 Method of Notification: Verbal Reason For Visit: 360 LUMBAR FUSION L4,L5,S1 Diagnosis Discharge Diagnosis (1) DDD (degenerative disc disease), lumbar: Status: Acute Code(s): M51.36 - Other intervertebral disc degeneration, lumbar region (2) Spinal stenosis at L4-L5 level: Status: Acute Code(s): M48.061 - Spinal stenosis, lumbar region without neurogenic claudication (3) Overactive bladder: Status: Acute Code(s): N32.81 - Overactive bladder Medications at Discharge Home Medications omeprazole 40 mg PO DAILY 11/25/16 albuterol sulfate 1 - 2 puff INHALATION Q6H PRN PRN 12/29/16 escitalopram oxalate 20 mg PO DAILY 12/29/16 mometasone-formoterol [Dulera] 2 puff IH BID 12/29/16 tolterodine 4 mg capsule,extended release 24 hr 4 mg PO DAILY 07/18/20 tramadol 50 mg tablet 50 mg PO Q6H PRN #40 tab 08/16/20 cholecalciferol (vitamin D3) [Vitamin D3] 50 mcg PO DAILY 09/13/20 Hospital Course Summary of Care Provided Hospital Course: This patient was admitted on September 25, 2020 and is being discharged on September 29, 2020. The date of admission she underwent a 360 degree fusion at L4-5 and L5-S1. She tolerated the procedure well. The hospital course was remarkable for a significant ileus which of course is essentially normal for this kind of surgery. It is expected thus it is not a complication. It has slowly resolved and now she is actually had a small bowel movement she has good bowel sounds now and she is passing gas. Her dressing was changed today and her back incision is healing well. She was told that she could start eating a regular diet now. She is to remove both the posterior dressing and the anterior dressing in 2 days and start showering in 3 days. Other than the ileus her hospital course was unremarkable. She is ambulating well without a walker. She knows that she will be able to return to work for about 3 months. She already has an appointment to see me in the office in a few days. We will will remove the skin clips at that time. She knows how to get a hold of me in the event that she needs me for anything between now and then. He is being sent home on hydrocodone 10 mg 325 and Flexeril. This is the end of discharge on [facility]. Is Dr. Matias dictating. Weight / BMI Weight Weight: 198 lb 13.711 oz Body Mass Index (BMI) 31.1 ABG / Lab / Microbiology Data Result Diagrams: 09/29/20 10:00 09/29/20 10:00 Laboratory: Laboratory Results - last 24 hr 09/29/20 09/29/20 10:00 10:00 WBC 7.1 RBC 3.10 L Hgb 9.0 L Hct 27.8 L MCV 89.7 MCH 29.0 MCHC 32.4 RDW Std Deviation 42.5 RDW Coeff of Vanessa 13.0 Plt Count 211 MPV 10.1 Immature Gran % (Auto) 0.600 Neut % (Auto) 68.6 Lymph % (Auto) 15.8 L [place] % (Auto) 8.4 Eos % (Auto) 6.3 H Baso % (Auto) 0.3 Absolute Neuts (auto) 4.9 Absolute Lymphs (auto) 1.13 Nucleated RBC % 0 Sodium 141 Potassium 3.7 Chloride 105 Carbon Dioxide 31.0 Anion Gap 5 BUN 9 Creatinine 0.71 Estim Creat Clear Calc 78.87 Est GFR (MDRD) Af Amer 106 Est GFR (MDRD) Non-Af 88 BUN/Creatinine Ratio 12.6 Glucose 100 Calcium 8.7 Total Bilirubin 0.80 AST 27 ALT 28 Alkaline Phosphatase 133 H Total Protein 6.2 L Albumin 2.4 L Globulin 3.8 Albumin/Globulin Ratio 0.6 L Microbiology: Microbiology 09/17/20 09:12 Swab (Method) Nasal Screen MRSA/MSSA - Final D/C Instructions Discharge Diet: No restrictions May shower in (days): 3 May resume sexual activity in: 4-6 weeks Weight Bearing Status: Full weight bearing Call your doctor if your incision/area has: Continuous Slow Oozing, Increased Pain/ Swelling and Foul Smelling Discharge Call your doctor if you observe: Fever of 101 or Higher, Inability to urinate, Shortness of breath, Fainting spells, Calf discomfort and Uncontrolled pain Suture Line Care: Avoid Pulling/Pushing and Avoid Pinching/Bending Cleanse incision/area with: Soap & Water Please Follow Up With: Cresencio Matias DO When: already has appointment Meaningful Use Info Meaningful Use Diagnoses (Choose all that apply): None applicable Discharge Plan Admission Admit Date/Time: 09/25/20 05:28 Primary Reason for Your Visit: surgery Attending Provider: Cresencio Matias Primary Care Provider: Eagle Monzon Consulting Providers: Marco Rosales Instructions Patient Instructions: ED Chest Pain, Noncardiac Discharge Orders/Prescriptions Prescriptions: No Action tolterodine 4 mg capsule,extended release 24hr 4 mg PO DAILY RF: 0 omeprazole 40 MG capsule,delayed release(DR/EC) 40 mg PO DAILY RF: 0 escitalopram oxalate 20 MG tablet 20 mg PO DAILY RF: 0 albuterol sulfate 1 INHALER inhaler 1 - 2 puff INHALATION Q6H PRN PRN (Reason: Sob &/Or Wheezing) RF: 0 Dulera 8.8 GM HFA aerosol inhaler 2 puff IH BID RF: 0 cholecalciferol (vitamin D3) [Vitamin D3] 50 mcg (2,000 unit) Capsule 50 mcg PO DAILY RF: 0 tramadol 50 mg tablet 50 mg PO Q6H PRN (Reason: pain) Qty: 40 RF: 0 Referrals / Follow Up: Eagle Monzon MD [Primary Care Provider] - Disposition Disposition (needs filled in before D/C Order can be placed): Home, self care
--- NOTE | 2020-09-29 13:30 | NURSING ---
Dr. Matias wrote for 2 paper scripts for [place] 10 and flexeril 5mg
[2020-09-29 13:51] VITALS: BP 138/81; PULSE 94; RESP 18; TEMP 37.3; O2SAT 95
== END 2020-09-29 14:31 | disposition home or self-care (01) | DRG 460 ==
LOC: ACINP 05:29 → MS3 09-26 07:37
PROVIDERS: Anesthesiology; Internal Medicine; Admitting Provider Orthopaedic Surgery; PCP Family Medicine; Visit Provider Orthopaedic Surgery
PROC: 0SG30A0 Fusion of Lumbosacral Joint with Interbody Fusion Device, Anterior Approach, Anterior Column, Open Approach (ICD-10-PCS; principal; 2020-09-25 07:00)
DX: M51.36 Other intervertebral disc degeneration, lumbar region (principal); K56.7 Ileus, unspecified; J45.909 Unspecified asthma, uncomplicated; N32.81 Overactive bladder; M48.061 Spinal stenosis, lumbar region without neurogenic claudication; M47.816 Spondylosis without myelopathy or radiculopathy, lumbar region; F32.9 Major depressive disorder, single episode, unspecified; K21.9 Gastro-esophageal reflux disease without esophagitis; Z88.5 Allergy status to narcotic agent
CPT/HCPCS: 36415; 71045; 72020; 72100; 80048; 80053; 82962; 83735; 85025; 86703; 86704; 86705; 86706; 86708; 86709; 86803; 87077; 87081; 87340; 88304; 88311; 93005; 94640; 97162; 97530; 99251; C1713; J7120; A4216; C1876; G0463; J2405

== ENCOUNTER → 2021-03-20 15:51 | Outpatient (CLI) | payer OTHER, SELFPAY ==
--- NOTE | 2021-03-20 16:02 | RAD_ITS ---
EXAM: XR ABDOMEN, 2 VIEWS CLINICAL INDICATION: ABDOMINAL PAIN TECHNIQUE: Frontal view of the abdomen/pelvis with upright view of the abdomen. This report was created using [employer] report generation technology. COMPARISON: None. FINDINGS: LOWER THORAX: No acute pathology. INTRAPERITONEAL SPACE: No free air. GASTROINTESTINAL TRACT: Unremarkable. Non-obstructive. No bowel or stomach distention. ORGANS: Unremarkable as visualized. No organomegaly. No abnormal calcifications. BONES/JOINTS: Lower lumbar spinal fixation hardware. Scoliosis. SOFT TISSUES: No acute pathology. RAD/Abd Inc Decub and/or Erect IMPRESSION: No acute findings in the abdomen or pelvis. Electronically Signed: Ray Noriega MD at 19:06 EST , Service support ,
[2021-03-20 17:40] LABS: Absolute Lymphocyte Count 1.62 X10^3/uL (0.83-4.51); Absolute Neutrophil Count 5.4 X10^3/uL (2.0-7.7); Basophil# 0.07 X10^3/uL; Basophil% 0.8 % (0-1); Eosinophil# 0.63 X10^3/uL; Eosinophils% 7.4 % (0-5); Hematocrit 35.2 % (37-47); Hemoglobin 11.4 g/dL (12.0-15.0); Lymphocyte # 1.62 X10^3/ul (0.83-4.51); Lymphocyte % 19.1 % (19-41); Mean Corp Hgb Conc 32.4 g/dL (32-36); Mean Corpuscular Hgb 28.4 pg (27.0-32.0); Mean Corpuscular Volume 87.6 fL (81-99); Mean Platelet Vol. 10.8 fl (6.2-12.0); Monocyte# 0.71 X10^3/uL; Monocyte% 8.4 % (0-10); NRBC Flagged by Analyzer 0 % (0-5); Neutrophil % 63.8 % (47-70); Platelet Count 289 K/mm3 (150-450); RBC Distribution Width CV 13.4 % (11.6-14.6); RBC Distribution Width SD 43.2 fl (35.1-43.9); Red Blood Count 4.02 M/mm3 (4.2-5.4); White Blood Count 8.5 K/mm3 (4.4-11.0)
[2021-03-20 17:48] LABS: Erythrocyte Sedimentation Rate 32 mm/hr (0-30)
[2021-03-20 18:01] LABS: AST(SGOT) 16 U/L (15-37); Alanine Aminotransfer ALT/SGPT 24 U/L (13-56); Albumin, Serum 3.9 g/dL (3.2-5.0); Alkaline Phosphatase 77 U/L (45-117); Anion Gap 8 (5-15); BUN 28 mg/dL (7-18); BUN/Creat Ratio 24.3 RATIO (10-20); Calcium,Total 9.5 mg/dL (8.5-10.1); Chloride 108 mmol/L (98-107); Creatinine, Serum 1.15 mg/dL (0.55-1.02); EST Glomerular Filtration Rate 50 mL/min (>60); Est Glom Filt Rate - Afr Amer 61 mL/min (>60); Globulin 3.8 g/dL (2.2-4.2); Glucose 108 mg/dL (74-106); Potassium 4.1 mmol/L (3.5-5.1); Protein, Total 7.7 g/dL (6.4-8.2); Sodium Level 140 mmol/L (136-145)
== END ==
PROVIDERS: PCP Family Medicine; Referring Provider Family Medicine; Visit Provider Family Medicine
DX: R10.9 Unspecified abdominal pain (principal)
CPT/HCPCS: 36415; 74019; 80053; 85025; 85652

== ENCOUNTER → 2021-04-02 14:53 | Outpatient (CLI) | payer OTHER, SELFPAY ==
--- NOTE | 2021-04-02 14:57 | CT_ITS ---
STUDY: CT ABDOMEN AND PELVIS WITH CONTRAST REASON FOR EXAM: Female, 65 years old. Lower abdominal pain with tenderness. RADIATION DOSAGE (If Supplied By Facility): CTDIvol = ( 17.40 ) mGy, DLP = ( 1161.49 ) mGycm TECHNIQUE: Transaxial images were obtained from the dome of the diaphragm to the symphysis pubis with oral contrast. Oral and amp; IV Readi-CAT and amp; 100mL Isovue-370 was administered. Sagittal and coronal images were reconstructed. Individualized dose optimization techniques were used for this CT. COMPARISON: None. FINDINGS: The visualized lung bases are unremarkable. The visualized portions of the heart are within normal limits. A 7.5 mm cyst in the anterior aspect of the left lobe the liver. Normal gallbladder and extrahepatic biliary system. Normal spleen. Normal pancreas. Normal bilateral adrenal glands. Normal right kidney. Normal left kidney. Normal visualized stomach. Normal small intestine. Normal colon. The patient is status post appendectomy. There is scattered atherosclerotic calcification of the abdominal aorta, without a demonstrated aneurysm. Normal inferior vena cava. Normal retroperitoneum. Normal urinary bladder. There is a 2.3 cm x 2.1 surrounding the cyst in the left ovary. Mild degree of increased markings in the subcutaneous tissues overlying the lower anterior abdominal wall most likely related to the recent lumbar fusion. The patient is status post anterior fusion and disc placement at the L4-L5 and L5-S1 levels. CT/Abdomen/Pelvis WITH Contrast IMPRESSION: 2.3 cm x 2.1 cm cyst in the left ovary. The patient is status post anterior fusion of the L4-L5 and L5-S1 levels with prosthetic disc placement. Mild degree of increased markings in the subcutaneous fat overlying the lower anterior abdominal wall most likely secondary to the recent lumbar fusion surgery. Electronically Signed: Sanjeev Edwards MD at 8:27 EST , Service support ,
== END ==
PROVIDERS: PCP Family Medicine; Referring Provider Family Medicine; Visit Provider Family Medicine
DX: R10.9 Unspecified abdominal pain (principal)
CPT/HCPCS: 74177; Q9967

== ENCOUNTER 2021-05-02 14:21 | Outpatient (CLI) | payer OTHER, SELFPAY ==
[2021-05-04 08:34] LABS: Cancer Antigen 125 14.9 U/mL (0.0-38.1); Carcinoembryonic Antigen 2.4 ng/mL (0.0-4.7)
== END 2021-05-02 23:59 | disposition short-term general hospital (02) ==
LOC: LAB 14:23
PROVIDERS: PCP Family Medicine; Referring Provider Obstetrics & Gynecology; Visit Provider Obstetrics & Gynecology
DX: N83.209 Unspecified ovarian cyst, unspecified side (principal)
CPT/HCPCS: 36415; 82378; 86304

== ENCOUNTER 2021-05-14 15:55 | Outpatient (CLI) | payer OTHER, SELFPAY ==
--- NOTE | 2021-05-14 15:59 | US_ITS ---
STUDY: ULTRASOUND OF THE FEMALE PELVIS - COMPLETE REASON FOR EXAM: Female, 65 years old. ovarian cyst left lower quadrant pain. TECHNIQUE: Endovaginal. Transvaginal US was obtained to better visualized the ovaries. COMPARISON: CT 04/02/2021 FINDINGS: The uterus is anteverted and is in a midline position. The uterus measures 5.1 x 2 cm. There is a Nabothian cyst of the cervix. The endometrium measures 3 mm in thickness, and is hyperechoic. There is no demonstrated endometrial mass. Fibroid visualized measuring 19 x 21 mm. I.U.D. - The patient does not have an I.U.D. There is nonvisualization of the right ovary due to overlying bowel gas. The left ovary is visualized. The left ovary measures 2.5 x 2.6 cm. Cyst measures 22 mm. There is no visualized left adnexal mass or complex lesion. There is normal arterial and normal venous vascularity. There is no fluid in the cul-de-sac. Urinary bladder volume is 232 cc. US/Transvaginal Non- IMPRESSION: There is a Nabothian cyst of the cervix. Fibroid uterus. 20 mm left ovarian cyst. SRU Consensus Conference guidelines (Mcgowan, et. al. Radiology 2019;293:359-371) suggest that this simple cyst is almost certainly benign and no follow-up of this cyst is necessary. Electronically Signed: Ray Noriega MD at 17:11 EST ,
--- NOTE | 2021-05-14 15:59 | US_ITS ---
STUDY: ULTRASOUND OF THE FEMALE PELVIS - COMPLETE REASON FOR EXAM: Female, 65 years old. ovarian cyst left lower quadrant pain. TECHNIQUE: Endovaginal. Transvaginal US was obtained to better visualized the ovaries. COMPARISON: CT 04/02/2021 FINDINGS: The uterus is anteverted and is in a midline position. The uterus measures 5.1 x 2 cm. There is a Nabothian cyst of the cervix. The endometrium measures 3 mm in thickness, and is hyperechoic. There is no demonstrated endometrial mass. Fibroid visualized measuring 19 x 21 mm. I.U.D. - The patient does not have an I.U.D. There is nonvisualization of the right ovary due to overlying bowel gas. The left ovary is visualized. The left ovary measures 2.5 x 2.6 cm. Cyst measures 22 mm. There is no visualized left adnexal mass or complex lesion. There is normal arterial and normal venous vascularity. There is no fluid in the cul-de-sac. Urinary bladder volume is 232 cc. US/Pelvic (Non ) IMPRESSION: There is a Nabothian cyst of the cervix. Fibroid uterus. 20 mm left ovarian cyst. SRU Consensus Conference guidelines (Mcgowan, et. al. Radiology 2019;293:359-371) suggest that this simple cyst is almost certainly benign and no follow-up of this cyst is necessary. Electronically Signed: Ray Noriega MD at 17:11 EST ,
== END 2021-05-14 23:59 | disposition short-term general hospital (02) ==
PROVIDERS: PCP Family Medicine; Referring Provider Obstetrics & Gynecology; Visit Provider Obstetrics & Gynecology
DX: N83.209 Unspecified ovarian cyst, unspecified side (principal)
CPT/HCPCS: 76830; 76856

== ENCOUNTER 2021-06-26 14:59 | Outpatient (CLI) | payer OTHER, SELFPAY ==
[2021-06-26 17:55] LABS: Absolute Lymphocyte Count 1.75 X10^3/uL (0.83-4.51); Absolute Neutrophil Count 4.7 X10^3/uL (2.0-7.7); Basophil# 0.04 X10^3/uL; Basophil% 0.5 % (0-1); Eosinophils% 5.4 % (0-5); Hematocrit 35.6 % (37-47); Hemoglobin 11.8 g/dL (12.0-15.0); Lymphocyte # 1.75 X10^3/ul (0.83-4.51); Lymphocyte % 23.5 % (19-41); Mean Corp Hgb Conc 33.1 g/dL (32-36); Mean Corpuscular Volume 87.5 fL (81-99); Monocyte% 6.7 % (0-10); NRBC Flagged by Analyzer 0 % (0-5); Neutrophil # 4.71 X10^3/uL (2.7-7.7); Neutrophil % 63.2 % (47-70); Platelet Count 263 K/mm3 (150-450); RBC Distribution Width CV 12.9 % (11.6-14.6); RBC Distribution Width SD 41.1 fl (35.1-43.9); Red Blood Count 4.07 M/mm3 (4.2-5.4); White Blood Count 7.5 K/mm3 (4.4-11.0)
[2021-07-01 12:09] LABS: Beef <0.10 kU/L (Class 0); Corn <0.10 kU/L (Class 0); Egg, Whole 0.86 kU/L (Class II); Milk (Cow) 1.42 kU/L (Class III); Peanut <0.10 kU/L (Class 0); Pork <0.10 kU/L (Class 0); Soybean <0.10 kU/L (Class 0); Wheat 0.26 kU/L (Class 0/I)
[2021-07-01 13:26] LABS: Chocolate <0.10 kU/L (Class 0)
== END 2021-06-26 23:59 | disposition home or self-care (01) ==
LOC: MFPLAB 15:00
PROVIDERS: PCP Family Medicine; Referring Provider Family Medicine; Visit Provider Family Medicine
DX: K58.0 Irritable bowel syndrome with diarrhea (principal)
CPT/HCPCS: 36415; 85025; 86003; 86005; 86677

== ENCOUNTER 2021-06-28 13:01 | Outpatient (CLI) | payer OTHER, SELFPAY ==
[2021-07-01 17:23] LABS: Fats, Neutral Normal (.); Fats, Total Normal (.)
== END 2021-06-28 23:59 | disposition home or self-care (01) ==
LOC: LABSPEC 13:02
PROVIDERS: PCP Family Medicine; Visit Provider Family Medicine
DX: K58.0 Irritable bowel syndrome with diarrhea (principal)
CPT/HCPCS: 82705; 83630; 87177; 87209; 87329; 87493; 87506

== ENCOUNTER → 2021-08-19 | Outpatient (CLI) | payer OTHER, SELFPAY ==
--- NOTE | 2021-08-19 16:50 | RAD_ITS ---
STUDY: X-RAY - RIGHT WRIST REASON FOR EXAM: Female, 65 years old. Right wrist pain. TECHNIQUE: 4 view(s) of the wrist were obtained. COMPARISON: None. FINDINGS: Osteopenia. Mild arthrosis of the radiocarpal joint. Mild arthrosis of the scapholunate articulation. Minimal cystic change in the scaphoid and lunate. Mild arthrosis of the radiocarpal row. Mild arthrosis of the first CMC joint. The soft tissue structures are unremarkable. RAD/Wrist min 3 Views IMPRESSION: Osteopenia with osteoarthritic changes as described. Cystic change in the scaphoid and lunate. No acute abnormality, chondrocalcinosis or erosive changes. Electronically Signed: Nathan Bernardo MD at 9:53 EDT ,
== END | disposition home or self-care (01) ==
LOC: MTRAD 16:50
PROVIDERS: PCP Family Medicine; Referring Provider Registered Nurse; Visit Provider Registered Nurse
DX: M25.531 Pain in right wrist (principal)
CPT/HCPCS: 73110

== ENCOUNTER → 2021-09-10 | Outpatient (CLI) | payer OTHER, SELFPAY ==
--- NOTE | 2021-09-10 11:27 | RAD_ITS ---
STUDY: X-RAY - RIGHT HAND, ATTENTION FIFTH FINGER REASON FOR EXAM: Female, 65 years old. The fifth digit pain. TECHNIQUE: 3 view(s) of the finger were obtained. COMPARISON: None. FINDINGS: Osteopenia. Moderate arthrosis of the MCP and IP joints with osteophyte formation. Focal soft tissue swelling of the PIP and DIP joints. RAD/Finger(s) Min 2 Views IMPRESSION: Osteopenia with osteoarthritic changes. No acute osseous abnormality. Electronically Signed: Nathan Bernardo MD at 13:36 EDT ,
== END | disposition home or self-care (01) ==
LOC: MTRAD 11:25
PROVIDERS: PCP Family Medicine; Referring Provider Family Medicine; Visit Provider Family Medicine
DX: M79.644 Pain in right finger(s) (principal)
CPT/HCPCS: 73140

== ENCOUNTER → 2021-10-29 | Outpatient (CLI) | payer OTHER, SELFPAY ==
[2021-10-29 11:10] LABS: Anion Gap 5 (5-15); BUN 20 mg/dL (7-18); BUN/Creat Ratio 20.1 RATIO (10-20); Chloride 108 mmol/L (98-107); Cholesterol 182 mg/dL (200); EST Glomerular Filtration Rate 59 mL/min (>60); Est Glom Filt Rate - Afr Amer 72 mL/min (>60); Glucose 93 mg/dL (74-106); High Density Lipoprotein 51 mg/dL; Potassium 4.2 mmol/L (3.5-5.1); Sodium Level 139 mmol/L (136-145); Triglycerides 164 mg/dL; Very Low Density Lipoprotein 33 mg/dL (5-40)
== END | disposition home or self-care (01) ==
LOC: LAB 09:14
PROVIDERS: Nurse Practitioner Family; PCP Family Medicine; Referring Provider Family Medicine; Visit Provider Family Medicine
DX: Z13.220 Encounter for screening for lipoid disorders (principal); Z13.1 Encounter for screening for diabetes mellitus
CPT/HCPCS: 36415; 80048; 80061

== ENCOUNTER → 2021-12-10 | Outpatient (CLI) | payer OTHER, SELFPAY ==
--- NOTE | 2021-12-10 14:13 | RAD_ITS ---
STUDY: XR Knee Complete 4 Views or More 12/10/2021 4:53 PM REASON FOR EXAM: Female, 66 years old. PAIN Technologist Notes woke up with left knee pain the last several days, today has been the worst TECHNIQUE: XR Knee Complete 4 Views or More LEFT COMPARISON: None FINDINGS: Normal visualized distal femur. Normal visualized proximal tibia and fibula. Normal proximal tibiofibular articulation. There is mild degenerative arthrosis of the medial femorotibial compartment. There is mild degenerative arthrosis of the lateral femorotibial compartment. There is mild degenerative arthrosis of the patellofemoral articulation. The soft tissue structures are unremarkable. RAD/Knee 4 or More Views IMPRESSION: Degenerative arthrosis. Electronically Signed: Ray Noriega MD at 16:54 EDT ,
== END | disposition home or self-care (01) ==
LOC: MTRAD 14:11
PROVIDERS: PCP Family Medicine; Referring Provider Family Medicine; Visit Provider Family Medicine
DX: M25.569 Pain in unspecified knee (principal)
CPT/HCPCS: 73564

== ENCOUNTER → 2022-01-28 | Outpatient (CLI) | payer OTHER, SELFPAY ==
[2022-01-28 12:52] LABS: Absolute Lymphocyte Count 1.29 X10^3/uL (0.83-4.51); Absolute Neutrophil Count 3.6 X10^3/uL (2.0-7.7); Basophil# 0.05 X10^3/uL; Basophil% 0.8 % (0-1); Eosinophil# 0.48 X10^3/uL; Eosinophils% 8.1 % (0-5); Hematocrit 33.8 % (37-47); Hemoglobin 11.1 g/dL (12.0-15.0); Lymphocyte # 1.29 X10^3/ul (0.83-4.51); Lymphocyte % 21.8 % (19-41); Mean Corp Hgb Conc 32.8 g/dL (32-36); Mean Corpuscular Hgb 29.4 pg (27.0-32.0); Mean Corpuscular Volume 89.4 fL (81-99); Monocyte# 0.51 X10^3/uL; Monocyte% 8.6 % (0-10); NRBC Flagged by Analyzer 0 % (0-5); Neutrophil # 3.55 X10^3/uL (2.7-7.7); Neutrophil % 60.2 % (47-70); Platelet Count 232 K/mm3 (150-450); RBC Distribution Width CV 13.2 % (11.6-14.6); RBC Distribution Width SD 42.9 fl (35.1-43.9); Red Blood Count 3.78 M/mm3 (4.2-5.4); White Blood Count 5.9 K/mm3 (4.4-11.0)
[2022-01-28 13:08] LABS: Vitamin D,25 Hydroxy 28.5 ng/mL
[2022-01-28 13:15] LABS: ALB/GLOB Ratio 1.1 RATIO (0.9-2.4); AST(SGOT) 9 U/L (15-37); Alanine Aminotransfer ALT/SGPT 15 U/L (13-56); Albumin, Serum 3.6 g/dL (3.2-5.0); Alkaline Phosphatase 69 U/L (45-117); Anion Gap 5 (5-15); BUN 18 mg/dL (7-18); BUN/Creat Ratio 17.3 RATIO (10-20); Calcium,Total 8.9 mg/dL (8.5-10.1); Chloride 108 mmol/L (98-107); Cholesterol 189 mg/dL (200); Creatinine, Serum 1.04 mg/dL (0.55-1.02); EST Glomerular Filtration Rate 57 mL/min (>60); Est Glom Filt Rate - Afr Amer 68 mL/min (>60); Globulin 3.3 g/dL (2.2-4.2); Glucose 90 mg/dL (74-106); High Density Lipoprotein 66 mg/dL; Potassium 4.2 mmol/L (3.5-5.1); Protein, Total 6.9 g/dL (6.4-8.2); Sodium Level 141 mmol/L (136-145); Thyroid Stim Hormone (TSH) 0.73 uIU/mL (0.358-3.74); Triglycerides 125 mg/dL; Very Low Density Lipoprotein 25 mg/dL (5-40)
== END | disposition home or self-care (01) ==
LOC: MFPLAB 09:48
PROVIDERS: PCP Family Medicine; Referring Provider Family Medicine; Visit Provider Family Medicine
DX: L74.9 Eccrine sweat disorder, unspecified (principal); E78.5 Hyperlipidemia, unspecified; E55.9 Vitamin D deficiency, unspecified
CPT/HCPCS: 36415; 80053; 80061; 82306; 82533; 84443; 85025

== ENCOUNTER → 2022-02-03 | Outpatient (CLI) | payer OTHER, SELFPAY ==
[2022-02-03 17:44] LABS: Absolute Lymphocyte Count 1.93 X10^3/uL (0.83-4.51); Absolute Neutrophil Count 4.5 X10^3/uL (2.0-7.7); Basophil# 0.03 X10^3/uL; Basophil% 0.4 % (0-1); Eosinophil# 0.42 X10^3/uL; Eosinophils% 5.6 % (0-5); Hematocrit 36.9 % (37-47); Hemoglobin 12.5 g/dL (12.0-15.0); Lymphocyte # 1.93 X10^3/ul (0.83-4.51); Lymphocyte % 25.7 % (19-41); Mean Corp Hgb Conc 33.9 g/dL (32-36); Mean Corpuscular Hgb 29.5 pg (27.0-32.0); Mean Platelet Vol. 10.6 fl (6.2-12.0); Monocyte# 0.59 X10^3/uL; Monocyte% 7.8 % (0-10); NRBC Flagged by Analyzer 0 % (0-5); Neutrophil # 4.52 X10^3/uL (2.7-7.7); Neutrophil % 60.1 % (47-70); Platelet Count 273 K/mm3 (150-450); RBC Distribution Width CV 13.2 % (11.6-14.6); RBC Distribution Width SD 41.9 fl (35.1-43.9); RET-HE 31.6 pg (30-35); Red Blood Count 4.24 M/mm3 (4.2-5.4); Reticulocyte Count 1.51 % (0.5-1.5); White Blood Count 7.5 K/mm3 (4.4-11.0)
[2022-02-03 19:44] LABS: Ferritin 15 ng/mL (8-252); Iron 64 ug/dL (50-170); Iron Binding Capacity,Total 415 ug/dL (250-450)
== END | disposition home or self-care (01) ==
LOC: MFPLAB 16:31
PROVIDERS: PCP Family Medicine; Visit Provider Family Medicine
DX: D64.9 Anemia, unspecified (principal)
CPT/HCPCS: 36415; 82728; 83540; 83550; 85025; 85045

== ENCOUNTER → 2022-10-15 | Outpatient (CLI) | payer MEDICARE, OTHER, SELFPAY ==
--- NOTE | 2022-10-15 09:15 | MRI_ITS ---
STUDY: MRI CERVICAL SPINE WITHOUT CONTRAST REASON FOR EXAM: Female, 66 years old. pain, decreased ROM of neck TECHNIQUE: Standardized fat and water weighted pulse sequences were obtained in the sagittal and axial planes. COMPARISON: None FINDINGS: Normal foramen magnum and brainstem-cervical cord junction. Normal craniovertebral junction. Normal anterior atlantoaxial articulation. Normal odontoid process. Normal cervical lordosis. Normal vertebral bodies and posterior osseous elements. C2-3: Normal endplates. Normal disc height, signal and morphology. Normal central canal and intervertebral neural foramina. C3-4: Normal endplates. Normal disc height, signal and morphology. Normal central canal and intervertebral neural foramina. C4-5: Normal endplates. Normal disc height, signal and morphology. Normal central canal and intervertebral neural foramina. C5-6: Degenerative endplate changes. Grade 1 retrolisthesis Narrowed disc space and mild bulging disc osteophyte complex.. Mild narrowing of the central canal..Moderate to severe bilateral neural foraminal stenosis secondary to disc and bony hypertrophy C6-7: Normal endplates. Narrowed disc space and minor bulging of the disc.. Mild narrowing of the central canal. Normal and intervertebral neural foramina. C7-T1: Normal endplates. Normal disc height, signal and morphology. Normal central canal and intervertebral neural foramina. Normal cervical cord. Normal visualized soft tissue structures. MRI/Spine Cervical (Routine) IMPRESSION: No evidence for acute fracture or subluxation.. Mild spondylosis most severe at C5-6 with spinal stenosis secondary to disc disease and bony hypertrophy Findings as above Electronically Signed: Tim Rene MD at 19:19 EDT ,
== END | disposition home or self-care (01) ==
LOC: MRI 08:40
PROVIDERS: PCP Family Medicine; Referring Provider Orthopaedic Surgery; Visit Provider Orthopaedic Surgery
DX: M54.2 Cervicalgia (principal)
CPT/HCPCS: 72141

== ENCOUNTER → 2022-11-11 | Outpatient (CLI) | payer MEDICARE, OTHER, SELFPAY ==
[2022-11-11 15:29] LABS: Hematocrit 36.3 % (37-47); Hemoglobin 11.6 g/dL (12.0-15.0); Mean Corpuscular Hgb 28.9 pg (27.0-32.0); Mean Corpuscular Volume 90.3 fL (81-99); Mean Platelet Vol. 10.6 fl (6.2-12.0); Platelet Count 267 K/mm3 (150-450); RBC Distribution Width CV 12.7 % (11.6-14.6); RBC Distribution Width SD 42.2 fl (35.1-43.9); Red Blood Count 4.02 M/mm3 (4.2-5.4); White Blood Count 6.1 K/mm3 (4.4-11.0)
[2022-11-11 15:45] LABS: Erythrocyte Sedimentation Rate 19 mm/hr (0-30)
[2022-11-11 15:54] LABS: Vitamin B12 342 pg/mL (211-911)
[2022-11-11 16:05] LABS: Cholesterol 208 mg/dL (200); Ferritin 17 ng/mL (8-252); High Density Lipoprotein 67 mg/dL; Iron 69 ug/dL (50-170); Thyroid Stim Hormone (TSH) 0.99 uIU/mL (0.358-3.74); Triglycerides 123 mg/dL; Very Low Density Lipoprotein 25 mg/dL (5-40)
== END | disposition home or self-care (01) ==
LOC: MFPLAB 12:21
PROVIDERS: PCP Family Medicine; Visit Provider Family Medicine
DX: G62.9 Polyneuropathy, unspecified (principal); E78.5 Hyperlipidemia, unspecified; D64.9 Anemia, unspecified; E55.9 Vitamin D deficiency, unspecified
CPT/HCPCS: 36415; 80061; 82306; 82607; 82728; 83540; 84443; 85027; 85652

== ENCOUNTER → 2022-12-11 | Outpatient (CLI) | payer MEDICARE, OTHER, SELFPAY ==
--- NOTE | 2022-12-11 07:52 | MRI_ITS ---
STUDY: MRI BRAIN WITHOUT CONTRAST REASON FOR EXAM: Female, 67 years old. gait instability, BALANCE ISSUES TECHNIQUE: Standardized multiplanar fat and water weighted pulse sequences were obtained. COMPARISON: Head CT dated November 25, 2016. MRI of the brain dated December 29, 2015 FINDINGS: There is mild cerebral atrophy with widening of the extra-axial spaces and ventricular dilatation. There are a limited number of small white matter hyperintensities, distributed throughout the deep white matter tracts of the cerebral hemispheres, consistent with mild chronic white matter ischemic changes. There is no evidence for recent intracranial ischemia or other cause of cytotoxic edema on diffusion weighted imaging (DWI). Normal T2* images of the brain without demonstrated susceptibility artifact. There is no demonstrated hemosiderin stain. Normal bilateral basal ganglia. Normal thalami. There is no extra-axial fluid accumulation. Normal flow voids within the major intracranial circulation suggesting patency by spin echo criteria. Normal sella turcica, pituitary gland, infundibular stalk, optic chiasm and hypothalamus. Normal tectal plate and pineal gland. Normal midbrain, chel[place] and medulla. Normal cerebellum. Normal basal cisterns. Normal bilateral temporal bones. Normal bilateral internal auditory canals. No demonstrated orbital abnormality, within the constraints of a routine brain study. Normal visualized paranasal sinuses. Normal calvarium and skull base. Normal visualized soft tissue structures. Normal visualized upper cervical spine. MRI/Brain without Contrast IMPRESSION: 1. Mild chronic changes of the brain, as described above. Electronically Signed: Portillo Zamarripa MD at 15:09 EDT ,
== END | disposition home or self-care (01) ==
LOC: MRI 07:43
PROVIDERS: PCP Family Medicine; Referring Provider Family Medicine; Visit Provider Family Medicine
DX: R26.81 Unsteadiness on feet (principal)
CPT/HCPCS: 70551

== ENCOUNTER 2023-02-10 07:36 | Observation (INO) | payer MEDICARE, OTHER, SELFPAY ==
--- NOTE | 2023-01-21 08:31 | EKG12_ITS ---
Test Reason : PREOP Blood Pressure : / mmHG Vent. Rate : 069 BPM Atrial Rate : 069 BPM P-R Int : 166 ms QRS Dur : 084 ms QT Int : 404 ms P-R-T Axes : 053 041 055 degrees QTc Int : 432 ms Normal sinus rhythm Normal ECG Confirmed by REYES PICHARDO, ABBY ([id number]), editor map LAYLA BANG ([id number]) on 01/22/2023 6:44:00 AM Referred By: Cresencio Matias Confirmed By:ABBY CHAMBERS MD
[2023-01-21 10:14] LABS: Absolute Lymphocyte Count 1.42 X10^3/uL (0.83-4.51); Absolute Neutrophil Count 3.4 X10^3/uL (2.0-7.7); Basophil# 0.04 X10^3/uL; Basophil% 0.7 % (0-1); Eosinophil# 0.56 X10^3/uL; Eosinophils% 9.5 % (0-5); Hematocrit 34.9 % (37-47); Hemoglobin 11.6 g/dL (12.0-15.0); Lymphocyte # 1.42 X10^3/ul (0.83-4.51); Lymphocyte % 24.2 % (19-41); Mean Corp Hgb Conc 33.2 g/dL (32-36); Mean Corpuscular Hgb 29.5 pg (27.0-32.0); Mean Corpuscular Volume 88.8 fL (81-99); Mean Platelet Vol. 10.6 fl (6.2-12.0); Monocyte# 0.46 X10^3/uL; Monocyte% 7.8 % (0-10); NRBC Flagged by Analyzer 0 % (0-5); Neutrophil # 3.36 X10^3/uL (2.7-7.7); Neutrophil % 57.3 % (47-70); Platelet Count 251 K/mm3 (150-450); RBC Distribution Width CV 12.4 % (11.6-14.6); RBC Distribution Width SD 40.4 fl (35.1-43.9); Red Blood Count 3.93 M/mm3 (4.2-5.4); White Blood Count 5.9 K/mm3 (4.4-11.0)
[2023-01-21 10:50] LABS: Anion Gap 6 (5-15); BUN 21 mg/dL (7-18); BUN/Creat Ratio 20.8 RATIO (10-20); Chloride 108 mmol/L (98-107); Creatinine, Serum 1.01 mg/dL (0.55-1.02); EST Glomerular Filtration Rate 58 mL/min (>60); Est Glom Filt Rate - Afr Amer 71 mL/min (>60); Glucose 91 mg/dL (74-106); Potassium 4.2 mmol/L (3.5-5.1); Sodium Level 140 mmol/L (136-145)
[2023-01-21 10:55] LABS: Magnesium 2.2 mg/dL (1.6-2.6)
[2023-01-21 11:31] LABS: HIV - WCH Non-Reactive (Nonreactive); Hepatitis B Surface Antibody Non-Reactive; Hepatitis C Antibody Non-Reactive (Nonreactive)
[2023-01-22 06:09] LABS: Hepatitis A AB, Total Positive (Negative)
--- NOTE | 2023-02-09 10:45 | PCM.HP.BLA ---
History and Physical [id number] Acct: [id number] Name: ROHAN ROSALES Rep #: [id number] : 1955 Provider: Dr. Cresencio Matias, Age/Sex: 66/F Location[place] [facility] [place] Status: Signed Intake Vital Signs 01/09/2208:31 Height 5 ft 7 in Intake Visit Reasons: CERVICAL SPINE Chief Complaint: cervical spine Accompanied by: Self Is patient in pain?: Yes Pain scale (1-10): 6 Allergies aripiprazole [From Abilify] Allergy (Mild, Verified 01/08/22 08:32) rashcodeine Allergy (Verified 01/08/22 08:32) Rashmeperidine HCl [From Demerol] Allergy (Verified 01/08/22 08:32) Rashoxycodone HCl [From Percocet] Allergy (Verified 01/08/22 08:32) Rash Medications albuterol sulfate 90 mcg/actuation aerosol inhaler 1 - 2 puff inhalation Q6H PRN PRN Sob &/Or Wheezing 12/29/16 [History Confirmed 10/09/22] cholecalciferol (vitamin D3) 50 mcg (2,000 unit) capsule (Vitamin D3) 50 mcg PO DAILY SUPPLEMENT 09/13/20 [History Confirmed 10/09/22] escitalopram oxalate 20 mg tablet 20 mg PO DAILY DEPRESSION 11/21/20 [History Confirmed 10/09/22] omeprazole 40 mg capsule,delayed release 40 mg PO DAILY GERD 11/21/20 [History Confirmed 10/09/22] bupropion HCl 150 mg tablet,12 hr sustained-release (Wellbutrin SR) 150 mg PO DAILY 05/02/21 [History Confirmed 10/09/22] PFS Medical History Asthma Asthma Chest pain, unspecified Chronic back pain Depression Former smoker GERD (gastroesophageal reflux disease) Obesity (BMI 30.0-34.9) Osteoarthritis of left knee Restless leg syndrome Spinal stenosis at L4-L5 level Wears glasses Surgical History History of back surgery History of elbow surgery History of esophagogastroduodenoscopy S/P appendectomy S/P colonoscopy Status post arthroscopic knee surgery Family History Mother Heart disease Breast cancerFather Cancer Pancreatic Cancer Social History Smoking Status: Former smoker alcohol intake: current alcohol intake frequency: holidays/special occasions only substance use type: marijuana what type of physical activity do you participate in: walking seatbelt use: always do you feel safe at home: Yes additional social history: single Patient works for [employer] HPI CERVICAL SPINE Details: Parts of this documentation were recorded by a scribe, this documentation accurately reflects the service provided and the decisions made by me, Dr. Cresencio Matias, DO 10/09/22 0900. ROHAN ROSALES is a 66 year old F here today for cervical spine pain that she has had for many years but has became worse over the last 3 months. She has significant cervical stiffness. She states that the pain wakes her up at night when she is sleeping and she will occasional have a quick sharp electrical pain that comes from the neck and shoots into the shoulder blades. Denies any pain into the arms. Denies numbness, tingling or other associated symptoms. Denies any past surgery or injections of the neck. She states that she does get headaches daily which is mostly constant. She states that the headache is at the base of her skull and radiates into the back of her head. She does use Tylenol and Advil for the pain. She also uses heat which is helpful. She did completed PT in 1969 for the neck but she hasn't done any PT since. She denies any medicare biller. She states that heat works the best for her pain. He returns with a new problem. She is well-known to me as I have done a lumbar fusion on her. She has a problem with her neck however that has been gradually getting worse and worse over the last several months. Now the neck is very stiff. She gets headaches that start at the neck and go to the back of her head and to the sides. At this time she does not have any arm pain per se. She has trouble driving because she cannot turn her head to either direction. So she has to turn her whole body. Situation has gotten gradually worse. She denies any weakness in her arms. On examination her neck is quite stiff. She has pain with any attempted extension or Spurling's maneuver to either side. She has less pain with flexion. She has good motor strength of all the major muscle groups of both upper extremities. She has 2+ biceps triceps and brachial radialis reflexes bilaterally. She has no muscle atrophy. She has no long tract signs. Clonus is absent Babinski's are downgoing. Plain x-rays of the cervical spine taken in the AP and lateral projection demonstrate that she has significant C4-5 and C5-6 degenerative changes with spurring and enthesophytes. It is hard to tell about 6 7 but I suspect it is affected also. Because of the continued worsening of the condition we will proceed with an MRI scan of the cervical spine. I will see her after the MRI and make further recommendations. Coding Level of Care Code Off vis,est,level 3 Diagnoses Neck pain M54.2 Cervical spondylosis M47.812 Time Spent (min) 25
[2023-02-10] VITALS (15 sets, daily range): BP systolic 130–187; BP diastolic 76–109; PULSE 97–118; RESP 12–18; TEMP 36.3–36.6; O2SAT 93–99; BMI 27.1; BMI 27.2
--- NOTE | 2023-02-10 | DISC_PTH ---
PATIENT: ROHAN ROSALES LOC: [facility]3 U#:[id number] AGE/SX: 67/F ROOM: [facility] [place]02[place]10/[address]: Dr. Marcin Nascimento MD : 1955 BED: 1 DIS: 02/12/2023 SPEC #: [id number] RECD: 02/10/23 15:12 STATUS: JANE SAHU #: [id number] MICAELA: 02/10/23 00:[address]: Cresencio Matias DEPT: SURGICAL PATHOLOGY RECD BY: Reji Casanova ENTERED: 02/11/23 10:19 SP TYPE: DISC OTHR DR: MD Dr. Marcin Villareal MD Dr. Marcus Newton, DO Dr. Marco Rosales, Tissues: A - Intervertebral disc, NOS B - Intervertebral disc, NOS Procedures: Decalcification bone/plaque Surgery Specimen Level III Comments: @ Ordering doctor for SUIII edited from to @ by FERNANDO at 02/11/23 1507 @ Submitting doctor edited from to @ by RGOOD at 02/11/23 1507 HEADER OPERATION: ERAS, anterior cervical fusion C5-6 and C6-7 PRE-OP DIAGNOSIS: Neck pain, cervical spondylosis TISSUE SUBMITTED: A - Cervical disc C5-6, B - Cervical disc C6-7 MICROSCOPIC DIAGNOSIS A. Cervical disc C5-6, biopsy: Fragments of fibrocartilaginous tissue with reactive and degenerative changes and bone. B. Cervical disc C6-7, biopsy: Fragments of fibrocartilaginous tissue with reactive and degenerative changes and bone. NAJMA:kenneth 02/13/2023 MICROSCOPIC DESCRIPTION Slides are reviewed. GROSS DESCRIPTION A - Received in fixative is one container labeled with the patient's name and designated cervical disc C56. The specimen consists of multiple irregular fragments of peralta, indurated tissue mixed with fragments of bone that in aggregate measure 3.0 x 2.5 x 0.3 cm. The specimen is totally submitted in one cassette after decalcification. B - Received in fixative is one container labeled with the patient's name and designated cervical disc C67. The specimen consists of multiple irregular fragments of peralta, indurated tissue mixed with fragments of bone that in aggregate measure 3.0 x 2.5 x 0.3 cm. The specimen is totally submitted in one cassette after decalcification. / NAJMA:kenneth 02/11/2023 TC:5 CPT: 29024 x2, 69481 x2
[2023-02-10] MEDS: Magnesium 1 GM over 15 mins IV (06:18)
[2023-02-10] MEDS: Lactated Ringers 1,000 ML 15 ML IV (06:18)
[2023-02-10] MEDS: Acetaminophen 500 MG Tablet 1000 MG PO ×4 (06:28→21:10)
[2023-02-10] MEDS: dexAMETHasone 10 MG/ML Vial 8 MG IV (06:29)
--- NOTE | 2023-02-10 06:30 | RAD_ITS ---
STUDY: X-RAY - CERVICAL SPINE REASON FOR EXAM: Female, 67 years old. ANTERIOR CERVICAL FUSION C5-6 AND C6-7 TECHNIQUE: Single lateral view(s) of the cervical spine were obtained. COMPARISON: None FINDINGS: The localization instrument is seen anterior to the C6 vertebrae. RAD/Cerv Spine 2 or 3 Views IMPRESSION: The localization instrument is seen anterior to the C6 vertebrae. Electronically Signed: Sanjeev Edwards MD at 14:21 EDT ,
[2023-02-10 06:55] LABS: Bedside Glucose 109 mg/dL (74-106)
[2023-02-10] MEDS: Cefazolin 2 GM in 0.9% Normal Saline (100mL Bag) 100 ML IV (07:55)
[2023-02-10] MEDS: THROMBIN (RECOMBINANT) 20,000 UNIT VIAL 20000 UNIT TOPICAL (09:00)
[2023-02-10] MEDS: Heparin 10,000 UNITS/10 ML Vial 10000 UNITS (09:00)
--- NOTE | 2023-02-10 09:15 | RAD_ITS ---
STUDY: X-RAY - CERVICAL SPINE REASON FOR EXAM: Female, 67 years old. ANTERIOR CERVICAL FUSION C5-6 AND C6-7 TECHNIQUE: Single lateral view(s) of the cervical spine were obtained. COMPARISON: None FINDINGS: The localization instrument is seen anterior to the C5-C6 disc space level. RAD/Spine 1 View Any Level IMPRESSION: The localization instrument is seen anterior to the C5-C6 disc space level. Electronically Signed: Sanjeev Edwards MD at 11:07 EDT ,
--- NOTE | 2023-02-10 11:15 | RAD_ITS ---
STUDY: X-RAY - CERVICAL SPINE REASON FOR EXAM: Female, 67 years old. Anterior cervical fusion C5-6 and C6-7 TECHNIQUE: Single lateral view(s) of the cervical spine were obtained. COMPARISON: None FINDINGS: The localizing instrument is seen anterior to the C3-4 disc space level. RAD/Spine 1 View Any Level IMPRESSION: The localization instrument is seen anterior to the C3-C4 disc space level. Electronically Signed: Sanjeve Edwards MD at 13:01 EDT ,
--- NOTE | 2023-02-10 11:22 | RAD_ITS ---
STUDY: X-RAY - CERVICAL SPINE REASON FOR EXAM: Female, 67 years old. Anterior cervical fusion C5-6 and C6-7 TECHNIQUE: Single lateral view(s) of the cervical spine were obtained. COMPARISON: None FINDINGS: The patient is status post prosthetic disc placement at the C5-C6 level. A localization instrument is seen anterior to the C6-C7 disc space level. RAD/Spine 1 View Any Level IMPRESSION: Status post prosthetic disc placement at the C5-C6 level. Localization instrument is seen along the anterior aspect of the C6-C7 disc space level. Electronically Signed: Sanjeev Edwards MD at 13:00 EDT ,
--- NOTE | 2023-02-10 11:55 | RAD_ITS ---
STUDY: X-RAY - CERVICAL SPINE REASON FOR EXAM: Female, 67 years old. anterior cervical fusion C5-6 and C6-7 TECHNIQUE: 1 view(s) of the cervical spine were obtained. COMPARISON: 10/09/2022 FINDINGS: A single crosstable lateral view of the cervical spine was obtained in operating room during anterior cervical discectomy and fusion from C5 through C7. . RAD/Spine 1 View Any Level IMPRESSION: Radiograph during anterior cervical discectomy and fusion. Electronically Signed: Servando Drummond MD at 20:49 EDT ,
--- NOTE | 2023-02-10 12:27 | RAD_ITS ---
STUDY: X-RAY - CERVICAL SPINE REASON FOR EXAM: Female, 67 years old. Documentation view of anterior cervical spine fusion. TECHNIQUE: A single lateral documentation view(s) of the cervical spine were obtained. COMPARISON: Earlier in the day FINDINGS: Single lateral documentation cervical spine image shows diffuse moderate cervical spondylosis with anterior fusion and intervertebral disc prostheses at C5-C7. RAD/Spine 1 View Any Level IMPRESSION: Digital documentation view as described. Electronically Signed: Nathan Bernardo MD at 12:41 EDT ,
--- NOTE | 2023-02-10 12:58 | PCM.OPRPT ---
Report of Operation Description of Surgical Findings:: Preoperative diagnosis: Hard disc disease with foraminal stenosis at C5-6 and C6-7 Postoperative diagnosis same Procedures: #1 anterior cervical fusion C6-7 CPT code 86309 # 2 application of spinal plate from C5-C7 CPT code 48153/59 #3 anterior cervical fusion C5-6 CPT code 00563/51 #4 insertion of cage C6-7 CPT code 13363 #5 insertion of cage C5-6 CPT code 44906/51 #6 bone marrow aspirate left iliac crest CPT code 64263 #7 allograft bone for fusion CPT code 16793 Procedure: Patient was taken to the OR where she was placed in the supine position on the operating table. She was then placed under general endotracheal anesthesia. A Arce catheter was inserted. Neuro monitoring placed her leads on the patient. I took a preoperative x-ray with the needle marker in place to assure that I would start the incision at the proper level. This was marked with a small laceration using the end of the second needle neck in the left ASIS were then prepped and draped standard fashion. First we obtained the bone marrow aspirate from the left ASIS by puncturing hole with a small knife entering then with a Jamshidi needle tamped into place and obtaining 60 cc of bone marrow aspirate. This was then handed off to the apprentice instrument technician in the room who ran the BMA through the machine the stem cells from all of the cells and concentrated the stem cells about 10 times and gave us back several cc of concentrated stem cells. These were to be used later. I then made my incision at the predetermined point starting about the midline and curving to the edge of the right sternocleidomastoid muscle. Subcutaneous tissues were incised the length of the skin incision. Then exploited the cervical planes first exploiting the superficial cervical fascia followed by the explantation of the pretracheal fascia in this fashion we were able to move the midline structures to the left and the carotid to the right. Gave us access to the anterior longitudinal ligament which was quite thickened in this patient. We knew that C6-7 was going to be hard to get to so we marked 5 6 on purpose because she had a deep set cervical spine deep set in the chest. We confirmed that our needle was indeed at C5-6. This was then marked note that she had tremendous amount of anterior osteophyte posterior osteophytes 2. She also had foraminal stenosis on both sides at this level decided to perform this level first. To use the colton bur to even find the disc space once it had been marked once I used the colton bur I was able to find the disc base and cut the anterior annulus this was removed with pituitary rongeurs I then removed more nucleus all the way back to the posterior osteophytes which were completely covering the space posteriorly. This was a very tedious process. I had to use the 4 mm colton bur literally to bur my way all the way back to the uncinate processes and the large posterior lip both C5 which was curved downward and from C6. The exit at the back was completely blocked by this arthritic bone. Using a colton bur I slowly started burring down the large posterior spur of C5 this was again a very tedious process we placed cold sterile saline in between burring to cool down the bone. This was done repeatedly until I had a very thin shell of bone. Over the posterior longitudinal ligament I was able to remove the lower lip that is the C6 lip carefully and slowly with curettes until it was completely pulled away from the dura. The uncinate processes were opened on both sides. I checked it with a nerve hook and they were found to be open. Note that the endplates were sclerotic but we still had some cartilage left on them we removed them with curettes from both the C5 and C6. I also had to use the colton bur to bur anteriorly because of all the arthritic bumps in osteophytes anteriorly. Again this was a long and tedious process. Once I had both levels even that is C5 and C6 we took our measurements for a cage. In the end we use the large 9 mm high cage at C5-6 it was filled with spongy allograft bone called Veragraft. This is a spongy allograft is processed by the [facility] tissue bank. It is a AATB certified. It is distributed by [employer]. Is one of the best if not the best allograft on the market. We then soaked the 6 cage with its allograft bone in the patient's own concentrated stem cells. This was then tamped into place and countersunk a couple of millimeters. Preoperative x-ray demonstrated good position of the cage. We then moved to the C6-7 level below again the level was almost impossible to actually find because of all the overlapping bone. I was able to identify it and used a colton bur again to remove all the anterior osteophyte and expose the disc I then got the disc with a 15 blade and removed more nucleus from within the disc space. I used a curette to remove the cartilage off the endplates and had again used the bur all the way back to remove the posterior osteophytes this was a long and tedious process. The same technique was used as was used at C5-6. We had basically sculptor the space and sculptor the bone around that as it was so arthritic and it was all deformed. Once that was done I was able to take measurements for the cage. Ended up using an 8 mm cage again it was filled with the allograft and soaked the patient's concentrated stem cells. It was then tamped into place. We then used a 45 mm plate that was centered as best we could. Note that we had to do a lot of sculpting of the bone for to fit properly and do some bending of the cage note that her neck was a little scoliotic and so the plate was not put on straight is in a normal neck but it was rather talked a little to 1 side if that is the shape of her neck. Once that was done I was able to put a locking pin in place and then I did the first of the 6 16 mm screws. An awl was used to start the hole and then followed by the self-tapping screw. This was done at all 6 points. X-rays taken in surgery demonstrated good position of the plate the screws and the cages. Note that we thoroughly irrigated every 15 or 20 minutes in the course of the case to prevent infection. We then placed a amnionic membrane over the plate to prevent or sit adhesions to the esophagus or the trachea. Note that the esophagus was quite swollen from retraction. This could easily adhere to the titanium. Thus the amniotic membrane to prevent that. Once that was done 1/4 inch Juancarlos drain was inserted. We closed the platysma in running fashion with 5-0 Vicryl. This was followed by closure of the skin with 5-0 Vicryl in interrupted fashion. This is the end of operative summary on Elizabeth Valdes. This is Dr. Matias dictating.
[2023-02-10] MEDS: dexAMETHasone 4 MG/ML Vial IV ×2 (13:52→20:18)
--- NOTE | 2023-02-10 14:15 | PN.HOSP_ITS ---
Reason for Visit Reason for Visit: Diagnoses Encounter for other preprocedural examination (02/10/23) Subjective Subjective Patient was seen and packed today, she underwent a fusion of C5-6 and C6-7, hospitalist service was consulted by spinal surgery. Patient is groggy after the surgery she does wake up and answer simple questions appropriately however, she does not appear in any distress, she is still on supplemental oxygen at the time of my examination. Chronic medical problems include chronic depression, GERD, osteoarthritis, degenerative disc disease of the lumbar and cervical spine, and asthma. Objective Data Objective Data Vital Signs: Vital Signs Temp Pulse Resp BP Pulse Ox O2 Del Method O2 Flow Rate 97.3 F L 118 H 18 182/93 H 98 Simple Mask 7 02/10/23 13:12 02/10/23 13:30 02/10/23 13:30 02/10/23 13:30 02/10/23 13:30 02/10/23 13:30 02/10/23 13:30 Oxygen Flow Rate (L/min) 7 Oxygen Delivery Method Simple Mask Weight: 78.7 kg Body Mass Index (BMI) 27.1 Intake & Output: Intake and Output for Last 24 Hours 02/08/23 02/09/23 02/10/23 23:59 23:59 23:59 Intake Total 25 / 25 Output Total 1100 / 1100 Balance -1075 / -1075 Lab / Micro Data 01/21/23 08:42 01/21/23 08:42 Labs: Laboratory Results - last 24 hr 02/10/23 06:27: POC Glucose 109 H Micro: Microbiology 01/21/23 08:42 Swab (Method) Nasal Screen MRSA/MSSA - Final Radiography Diagnostic Testing: Radiology Impression Spine X-Ray 02/10/23 09:15 IMPRESSION: The localization instrument is seen anterior to the C5-C6 disc space level. Electronically Signed: Sanjeev Edwards MD at 11:07 EDT , Spine X-Ray 02/10/23 11:15 IMPRESSION: The localization instrument is seen anterior to the C3-C4 disc space level. Electronically Signed: Sanjeev Edwards MD at 13:01 EDT , Spine X-Ray 02/10/23 11:22 IMPRESSION: Status post prosthetic disc placement at the C5-C6 level. Localization instrument is seen along the anterior aspect of the C6-C7 disc space level. Electronically Signed: Sanjeev Edwards MD at 13:00 EDT , Spine X-Ray 02/10/23 12:27 IMPRESSION: Digital documentation view as described. Electronically Signed: Nathan Bernardo MD at 12:41 EDT , Physical Exam Const no apparent distress, average body habitus, healthy appearing and well nourished General Appearance: cooperative, well kempt and well developed Orientation / Consciousness: awake, oriented to person and oriented to place HEENT normocephalic and moist oral mucous membranes Eyes PERRL, EOMs intact bilaterally and conjunctivae normal Neck supple, no JVD, thyroid normal and no carotid bruits General: trachea midline Resp normal respiratory effort and clear to auscultation bilaterally Auscultation: Negative for rales, rhonchi or wheezes Cardio regular rate, regular rhythm, no murmurs, no rub and no gallops GI normal to inspection, nondistended, normoactive bowel sounds, soft to palpation, non-tender and non-distended Extremity no clubbing, cyanosis or edema Skin no rashes or lesions noted General Skin Exam: no breakdown Neuro oriented x3, CN's II-XII intact bilaterally, no focal motor deficits and no sensory deficits noted Sensorium / Orientation: awake and alert Speech: speech normal Psych affect normal
--- NOTE | 2023-02-10 14:15 | PCM.PN.HOSP ---
Reason for Visit Reason for Visit: Diagnoses Encounter for other preprocedural examination (02/10/23) Subjective Subjective Patient was seen and packed today, she underwent a fusion of C5-6 and C6-7, hospitalist service was consulted by spinal surgery. Patient is groggy after the surgery she does wake up and answer simple questions appropriately however, she does not appear in any distress, she is still on supplemental oxygen at the time of my examination. Chronic medical problems include chronic depression, GERD, osteoarthritis, degenerative disc disease of the lumbar and cervical spine, and asthma. Objective Data Objective Data Vital Signs: Vital Signs Temp Pulse Resp BP Pulse Ox O2 Del Method O2 Flow Rate 97.3 F L 118 H 18 182/93 H 98 Simple Mask 7 02/10/23 13:12 02/10/23 13:30 02/10/23 13:30 02/10/23 13:30 02/10/23 13:30 02/10/23 13:30 02/10/23 13:30 Oxygen Flow Rate (L/min) 7 Oxygen Delivery Method Simple Mask Weight: 78.7 kg Body Mass Index (BMI) 27.1 Intake & Output: Intake and Output for Last 24 Hours 02/08/23 02/09/23 02/10/23 23:59 23:59 23:59 Intake Total 25 / 25 Output Total 1100 / 1100 Balance -1075 / -1075 Lab / Micro Data 01/21/23 08:42 01/21/23 08:42 Labs: Laboratory Results - last 24 hr 02/10/23 06:27: POC Glucose 109 H Micro: Microbiology 01/21/23 08:42 Swab (Method) Nasal Screen MRSA/MSSA - Final Radiography Diagnostic Testing: Radiology Impression Spine X-Ray 02/10/23 09:15 IMPRESSION: The localization instrument is seen anterior to the C5-C6 disc space level. Electronically Signed: Sanjeev Edwards MD at 11:07 EDT , Spine X-Ray 02/10/23 11:15 IMPRESSION: The localization instrument is seen anterior to the C3-C4 disc space level. Electronically Signed: Sanjeev Edwards MD at 13:01 EDT , Spine X-Ray 02/10/23 11:22 IMPRESSION: Status post prosthetic disc placement at the C5-C6 level. Localization instrument is seen along the anterior aspect of the C6-C7 disc space level. Electronically Signed: Sanjeev Edwards MD at 13:00 EDT , Spine X-Ray 02/10/23 12:27 IMPRESSION: Digital documentation view as described. Electronically Signed: Nathan Bernardo MD at 12:41 EDT , Physical Exam Const no apparent distress, average body habitus, healthy appearing and well nourished Constitutional Narrative: Patient appears sleepy, she does awaken to verbal and tactile stimulation and answers simple questions appropriately General Appearance: cooperative, well kempt and well developed HEENT normocephalic, head/scalp atraumatic and moist oral mucous membranes Head and Scalp: normocephalic Eyes PERRL, EOMs intact bilaterally and conjunctivae normal Resp normal respiratory effort, no retractions, no use of accessory muscles and clear to auscultation bilaterally Auscultation: Negative for rales, rhonchi or wheezes Cardio regular rate, regular rhythm, S1 normal heart sound, S2 normal heart sound, no murmurs, no rub and no gallops GI normal to inspection, nondistended, normoactive bowel sounds, soft to palpation, non-tender and non-distended Extremity normal to inspection and no clubbing, cyanosis or edema Skin no rashes or lesions noted General Skin Exam: no breakdown Neuro CN's II-XII intact bilaterally, moves all extremities, no focal motor deficits and no sensory deficits noted Psych affect normal Assessment & Plan Assessment/Plan (1) Herniated nucleus pulposus, C6-7: PLAN: Plan 1. Chronic depression-patient is on Lexapro and Wellbutrin currently, this will be continued #2 asthma-patient uses as needed albuterol aerosols and Dulera, as needed albuterol aerosols will be ordered #3 GERD-patient is currently on a PPI, this will be continued here #4 overactive bladder-patient is on vibegron, this will be continued #5 degenerative disc disease of the cervical spine-postop day 0 cervical fusion C 5?6, C6-7, spinal surgery is caring for the patient, she will be seen by PT and OT Total clinical time spent by myself addressing the patient's medical issues, reviewing all of her data, and collaborating with patient's care team: 25 minutes Charges/Coding Visit Charges Inpatient E&M: 84299 [facility] Hosp L1
[2023-02-10] MEDS: Lactated Ringers 1,000 ML 100 ML IV (14:31)
[2023-02-10] MEDS: Morphine 2 MG/ML Syringe IV ×3 (16:57→21:10)
[2023-02-10] MEDS: Cefazolin 1 GM/50 ML BAG IV (16:57)
[2023-02-11] VITALS (8 sets, daily range): BP systolic 135–169; BP diastolic 75–95; PULSE 97–104; RESP 16; TEMP 36.6–36.8; O2SAT 95–97
[2023-02-11] MEDS: Morphine 2 MG/ML Syringe IV ×3 (00:24→05:42)
[2023-02-11] MEDS: Cefazolin 1 GM/50 ML BAG IV (00:24)
[2023-02-11] MEDS: 0.9% Saline Lock 10 ML Syringe IV ×6 (00:25→20:18)
[2023-02-11] MEDS: dexAMETHasone 4 MG/ML Vial 2 MG IV ×2 (02:55→08:05)
[2023-02-11] MEDS: diazePAM 2 MG Tablet 4 MG PO (04:18)
[2023-02-11] MEDS: Acetaminophen 500 MG Tablet 1000 MG PO (05:46)
--- NOTE | 2023-02-11 07:51 | PCM.PN.HOSP ---
Reason for Visit Reason for Visit: Diagnoses Other cervical disc displacement at C6-C7 level (02/10/23) Encounter for other preprocedural examination (02/10/23) Subjective Subjective Patient is a 67-year-old lady who underwent C5-6, C6-7 spinal fusion on account of degenerative disc disease with foraminal stenosis. Procedure was performed by Dr. Matias on 02/10/2023 hospitalist service consulted to assist with management of patient medical comorbidities patient seen this a.m. complains of neck pain Objective Data Objective Data Vital Signs: Vital Signs Temp Pulse Resp BP Pulse Ox O2 Del Method O2 Flow Rate 97.9 F 104 H 16 135/92 H 95 Room Air 2 02/11/23 04:20 02/11/23 04:20 02/11/23 04:20 02/11/23 04:20 02/11/23 04:20 02/11/23 04:20 02/10/23 20:15 Oxygen Flow Rate (L/min) 2 Oxygen Delivery Method Room Air Weight: 78.7 kg Body Mass Index (BMI) 27.2 Intake & Output: Intake and Output for Last 24 Hours 02/09/23 02/10/23 02/11/23 23:59 23:59 23:59 Intake Total 2177 / 2177 2050 / 2050 Output Total 2100 / 2900 800 / 800 Balance 77 / -723 1250 / 1250 Lab / Micro Data 01/21/23 08:42 01/21/23 08:42 Micro: Microbiology 01/21/23 08:42 Swab (Method) Nasal Screen MRSA/MSSA - Final Radiography Diagnostic Testing: Radiology Impression Cervical Spine X-Ray 02/10/23 06:30 IMPRESSION: The localization instrument is seen anterior to the C6 vertebrae. Electronically Signed: Sanjeev Edwards MD at 14:21 EDT , Spine X-Ray 02/10/23 09:15 IMPRESSION: The localization instrument is seen anterior to the C5-C6 disc space level. Electronically Signed: Sanjeev Edwards MD at 11:07 EDT , Spine X-Ray 02/10/23 11:15 IMPRESSION: The localization instrument is seen anterior to the C3-C4 disc space level. Electronically Signed: Sanjeev Edwards MD at 13:01 EDT , Spine X-Ray 02/10/23 11:22 IMPRESSION: Status post prosthetic disc placement at the C5-C6 level. Localization instrument is seen along the anterior aspect of the C6-C7 disc space level. Electronically Signed: Sanjeev Edwards MD at 13:00 EDT , Spine X-Ray 02/10/23 11:55 IMPRESSION: Radiograph during anterior cervical discectomy and fusion. Electronically Signed: Servando Drummond MD at 20:49 EDT , Spine X-Ray 02/10/23 12:27 IMPRESSION: Digital documentation view as described. Electronically Signed: Nathan Bernardo MD at 12:41 EDT , Physical Exam Narrative GENERAL: cooperative HEENT: Atraumatic; normocephalic EYES; Anicteric, Normal Conjunctiva NECK; supple, normal thyroid, RESPIRATORY: Diminished to auscultation CARDIOVASCULAR: Regular S1 S2, GI: soft, normoactive bowel sounds, : No Renal angle tenderness; EXTREMITIES: No edema, no clubbing, MUSCULOSKELETAL: no muscle wasting NEURO: Awake; no lateralizing signs. SKIN: No Rash PSYCH; Flat affect Assessment & Plan Assessment/Plan (1) Herniated nucleus pulposus, C6-7: PLAN: Plan Patient is a 67-year-old lady who underwent C5-6, C6-7 spinal fusion on account of degenerative disc disease with foraminal stenosis. Procedure was performed by Dr. Matias on 02/10/2023 hospitalist service consulted to assist with management of patient medical comorbidities 1. Status post spine fusion ? On account of degenerative disc disease with foraminal stenosis; Procedure was performed by Dr. Matias on 02/10/2023 hospitalist service consulted to assist with management of patient medical comorbidities 2. Depression ? Patient is on Lexapro and Wellbutrin continue 3. Mild intermittent asthma ? Did continue patient home bronchodilator treatment regimen 4. GERD ? On PPI 5. Overactive bladder ?patient is on vibegron, continued 6. DVT prophylaxis ? Defer to primary service Time spent in the patient's overall evaluation,decision-making process, review of diagnostic data, adjustment of management, discussion with other providers, nursing nursing and ancillary staff involved in patient's care documentation, 35 Minutes Charges/Coding Visit Charges Inpatient E&M: 71829 Subs Hosp L2
[2023-02-11] MEDS: Morphine 4 MG/ML Syringe IV ×5 (08:04→22:51)
[2023-02-11] MEDS: Ensure Surgery 237 ML LIQUID PO ×3 (08:05→16:35)
[2023-02-11] MEDS: buPROPion (XL) 150 MG TABLET.XL PO (08:20)
[2023-02-11] MEDS: Escitalopram Oxalate 20 MG Tablet PO (08:20)
[2023-02-11] MEDS: Loperamide 2 MG Capsule PO (08:20)
[2023-02-11] MEDS: Pantoprazole Sodium 40 MG Tablet PO (08:21)
--- NOTE | 2023-02-11 10:18 | CASEMGMT ---
JEN DANIELS Assessment: Face to Face with pt for initial transition planning/care coordination assessment. RN JEREMIAH introduced self and role at [facility], pt voices understanding and consents to assessment. Pt is A&O x4 and answers all questions appropriately at this time. Pt sitting up in bed, reports she is having pain and her nurse is aware and trying to contact . Care providers, pharmacy, and demographics verified/updated. Admitting Dx:anterior cervical fusion PCP:Nicolás Specialists:betty Matias; grecia Ken Preferred Pharmacy:[facility] Retail Insurance:[employer] Prescription Benefit: yes LNOK:Miriam Todd, sig other Living Arrangements: Pt lives with sig other and niece in a two story home with 2 steps to enter with a rail. Pt reports she is I in ADL's and denies concerns at home. Transportation: Pt drives self and denies concerns with transportation. Pt sig other will transport her to medical appts until she can drive again. DME:shower chair, standard walker, ww, toilet seat riser, 2 sets crutches HHC/SNF:Pt denies hx of Pt states no concerns with going home at time of dc. Pt states no further concerns/needs. CM to follow. Advised pt to ask CM if any further question/concerns/needs arise, voices understanding. Pt Goal:Home Plan:Home
[2023-02-11] MEDS: diazePAM 5 MG Tablet PO ×2 (11:49→18:04)
[2023-02-11] MEDS: HYDROcodone Bitartrate/Apap 5/325 Tablet PO ×3 (11:49→21:24)
--- NOTE | 2023-02-11 11:56 | CASEMGMT ---
Social Work SW met with pt to discuss advance directives.? Pt confirms she has completed a living will and health care POA naming her significant other Miriam Todd.? Pt notified that documents are not on file at [facility] and SW requested they be brought in for scanning into the EMR.? ANIBAL Alcaraz
--- NOTE | 2023-02-11 15:58 | CASEMGMT ---
Met with patient to complete TREJO form. TREJO form explained to patient who voiced understanding and signed form. Original form placed in pt?s chart and copy provided to?patient. Krissy Delgadillo, Discharge Planning Asst
[2023-02-12] MEDS: diazePAM 5 MG Tablet PO ×2 (00:50→08:41)
[2023-02-12 02:04] VITALS: BP 139/85; PULSE 95; RESP 16; TEMP 37.1; O2SAT 97
[2023-02-12] MEDS: HYDROcodone Bitartrate/Apap 5/325 Tablet PO ×4 (02:06→15:21)
[2023-02-12] MEDS: Morphine 2 MG/ML Syringe IV (04:03)
[2023-02-12] MEDS: 0.9% Saline Lock 10 ML Syringe IV (04:03)
[2023-02-12 07:37] LABS: Absolute Lymphocyte Count 1.95 X10^3/uL (0.83-4.51); Absolute Neutrophil Count 6.2 X10^3/uL (2.0-7.7); Basophil# 0.04 X10^3/uL; Basophil% 0.4 % (0-1); Eosinophil# 0.14 X10^3/uL; Eosinophils% 1.6 % (0-5); Hematocrit 31.7 % (37-47); Hemoglobin 10.2 g/dL (12.0-15.0); Lymphocyte # 1.95 X10^3/ul (0.83-4.51); Lymphocyte % 21.6 % (19-41); Mean Corp Hgb Conc 32.2 g/dL (32-36); Mean Corpuscular Hgb 29.2 pg (27.0-32.0); Mean Corpuscular Volume 90.8 fL (81-99); Mean Platelet Vol. 10.8 fl (6.2-12.0); Monocyte# 0.65 X10^3/uL; Monocyte% 7.2 % (0-10); NRBC Flagged by Analyzer 0 % (0-5); Neutrophil # 6.21 X10^3/uL (2.7-7.7); Neutrophil % 68.8 % (47-70); Platelet Count 201 K/mm3 (150-450); RBC Distribution Width CV 12.9 % (11.6-14.6); RBC Distribution Width SD 42.5 fl (35.1-43.9); Red Blood Count 3.49 M/mm3 (4.2-5.4)
[2023-02-12 08:00] VITALS: BP 141/84; PULSE 89; RESP 18; TEMP 36.7; O2SAT 94
[2023-02-12 08:05] LABS: Anion Gap 5 (5-15); BUN 18 mg/dL (7-18); BUN/Creat Ratio 22.3 RATIO (10-20); Calcium,Total 8.5 mg/dL (8.5-10.1); Chloride 105 mmol/L (98-107); Creatinine, Serum 0.81 mg/dL (0.55-1.02); EST Glomerular Filtration Rate 75 mL/min (>60); Est Glom Filt Rate - Afr Amer 91 mL/min (>60); Estimated Creatinine Clearance 63.96 ml/min; Glucose 93 mg/dL (74-106); Magnesium 2.3 mg/dL (1.6-2.6); Phosphorus 2.2 mg/dL (2.5-4.9); Potassium 3.7 mmol/L (3.5-5.1); Sodium Level 142 mmol/L (136-145)
[2023-02-12] MEDS: Pantoprazole Sodium 40 MG Tablet PO (08:42)
[2023-02-12] MEDS: buPROPion (XL) 150 MG TABLET.XL PO (08:42)
[2023-02-12] MEDS: Escitalopram Oxalate 20 MG Tablet PO (08:42)
[2023-02-12] MEDS: Ensure Surgery 237 ML LIQUID PO (08:43)
[2023-02-12] MEDS: Loperamide 2 MG Capsule PO (08:43)
--- NOTE | 2023-02-12 08:59 | PCM.PN.HOSP ---
Reason for Visit Reason for Visit: Diagnoses Other cervical disc displacement at C6-C7 level (02/10/23) Encounter for other preprocedural examination (02/10/23) Subjective Subjective Patient seen complains of improvement in neck pain and spasm following addition of Valium to her treatment regimen Objective Data Objective Data Vital Signs: Vital Signs Temp Pulse Resp BP Pulse Ox O2 Del Method O2 Flow Rate 98.0 F 89 18 141/84 H 94 Room Air 2 02/12/23 08:00 02/12/23 08:00 02/12/23 08:00 02/12/23 08:00 02/12/23 08:00 02/12/23 08:00 02/10/23 20:15 Oxygen Flow Rate (L/min) 2 Oxygen Delivery Method Room Air Weight: 78.7 kg Body Mass Index (BMI) 27.2 Intake & Output: Intake and Output for Last 24 Hours 02/10/23 02/11/23 02/12/23 23:59 23:59 23:59 Intake Total 2177 / 2177 2050 / 2050 120 / 120 Output Total 2100 / 2900 800 / 800 Balance 77 / -723 1250 / 1250 120 / 120 Lab / Micro Data 02/12/23 06:25 02/12/23 06:25 Labs: Laboratory Results - last 24 hr 02/12/23 06:25: WBC 9.0, RBC 3.49 L, Hgb 10.2 L, Hct 31.7 L, MCV 90.8, MCH 29.2, MCHC 32.2, RDW Std Deviation 42.5, RDW Coeff of Vanessa 12.9, Plt Count 201, MPV 10.8, Immature Gran % (Auto) 0.400, Neut % (Auto) 68.8, Lymph % (Auto) 21.6, [place] % (Auto) 7.2, Eos % (Auto) 1.6, Baso % (Auto) 0.4, Absolute Neuts (auto) 6.2, Absolute Lymphs (auto) 1.95, Nucleated RBC % 0, Sodium 142, Potassium 3.7, Chloride 105, Carbon Dioxide 32.0, Anion Gap 5, BUN 18, Creatinine 0.81, Estim Creat Clear Calc 63.96, Est GFR (MDRD) Af Amer 91, Est GFR (MDRD) Non-Af 75, BUN/Creatinine Ratio 22.3 H, Glucose 93, Calcium 8.5, Phosphorus 2.2 L, Magnesium 2.3 Micro: Microbiology 01/21/23 08:42 Swab (Method) Nasal Screen MRSA/MSSA - Final Physical Exam Narrative GENERAL: cooperative HEENT: Atraumatic; normocephalic EYES; Anicteric, Normal Conjunctiva NECK; supple, normal thyroid, RESPIRATORY: Diminished to auscultation CARDIOVASCULAR: Regular S1 S2, GI: soft, normoactive bowel sounds, : No Renal angle tenderness; EXTREMITIES: No edema, no clubbing, MUSCULOSKELETAL: no muscle wasting NEURO: Awake; no lateralizing signs. SKIN: No Rash PSYCH; Flat affect Assessment & Plan Assessment/Plan (1) Herniated nucleus pulposus, C6-7: PLAN: Plan Patient is a 67-year-old lady who underwent C5-6, C6-7 spinal fusion on account of degenerative disc disease with foraminal stenosis. Procedure was performed by Dr. Matias on 02/10/2023 hospitalist service consulted to assist with management of patient medical comorbidities 1. Status post spine fusion ? On account of degenerative disc disease with foraminal stenosis; Procedure was performed by Dr. aMtias on 02/10/2023 hospitalist service consulted to assist with management of patient medical comorbidities ? 02/12/2023;Patient seen complains of improvement in neck pain and spasm following addition of Valium to her treatment regimen 2. Depression ? Patient is on Lexapro and Wellbutrin continue 3. Mild intermittent asthma ? Did continue patient home bronchodilator treatment regimen 4. GERD ? On PPI 5. Overactive bladder ?patient is on vibegron, continued 6. DVT prophylaxis ? Defer to primary service Time spent in the patient's overall evaluation,decision-making process, review of diagnostic data, adjustment of management, discussion with other providers, nursing nursing and ancillary staff involved in patient's care documentation, 35 Minutes Charges/Coding Visit Charges Inpatient E&M: 40496 Subs Hosp L2
[2023-02-12 09:51] VITALS: O2SAT 95
--- NOTE | 2023-02-12 12:52 | DCINST_ITS ---
Discharge Instructions Activity May shower in (days): 5 May resume sexual activity in: 4-6 weeks Lifting Restrictions: 15# Dressing / Incision Remove Dressing in: 4 days Follow Up Care Test Results: Test results from this visit will be discussed in further detail at your follow- up appointment, if applicable. Discharge Plan Admission Admit Date/Time: 02/10/23 07:36 Primary Reason for Your Visit: cervical fusion Attending Provider: Marcin Nascimento Primary Care Provider: Eagle Monzon Consulting Providers: Marco Rosales; Cresencio Matias Discharge Orders/Prescriptions Prescriptions: No Action bupropion HCl [Wellbutrin SR] 150 mg tablet sustained-release 12 hr 150 mg PO DAILY Gemtesa 75 mg tablet 75 mg PO DAILY tizanidine 4 mg tablet PO Patient Comments: take 1 Tablet THREE TIMES DAILY NEEDED omeprazole 40 mg capsule,delayed release(DR/EC) 40 mg PO DAILY Patient Comments: TAKE 1 CAPSULE BY MOUTH DAILY albuterol sulfate 1 INHALER inhaler 1 - 2 puff INHALATION Q6H PRN PRN (Reason: Sob &/Or Wheezing) escitalopram oxalate 20 mg tablet 20 mg PO DAILY albuterol sulfate 2.5 mg/0.5 mL solution for nebulization 2.5 mg inhalation Q6H PRN (Reason: shortness of breath or wheezing) Patient Comments: use 1 (ONE) vial FOUR TIMES DAILY NEEDED loperamide 2 mg capsule 2 mg PO DAILY Patient Comments: TAKE 1 CAPSULE BY MOUTH ONCE DAILY Referrals / Follow Up: Eagle Monzon MD [Primary Care Provider] - Disposition Disposition (needs filled in before D/C Order can be placed): Home, Self Care
--- NOTE | 2023-02-12 12:55 | DS.PCM_ITS ---
Providers Date of Admission: 02/10/23 Primary Care Physician: Dr. Eagle Monzon MD Attending Physician: This is discharge summary on . Patient was admitted on Thursday, 10 February. That day she underwent anterior cervical fusion at C6-7 and C5-6. Yesterday her dressing was changed out remove the drain. Incision was healing well. Today her dressing is dry. She wishes to go home and her pain at the back of her neck is much better. Her headaches that she had before surgery are completely and totally resolved. The arm pain that she had down both arms is completely resolved also. Her swallowing is okay now and she is not having any trouble with her food. Her voice is clear. She has no Sindi's syndrome. I gave her directions regarding her activities. She is not to lift more than 15 pounds. She already has an appointment to follow-up in the office. She knows how to get ahold of me in the event that she should need to. This is the end of discharge summary on Elizabeth. This is Dr. Matias dictating. Consultations 02/10/23 13:41 Consult: Hospitalist Routine Consulting Provider: Marco Rosales Reason for Consult: med management EMERGENT Consult: No MD Notified: Yes Date Notified: 02/10/23 Time Notified: 14:00 Method of Notification: Text Reason For Visit: Anterior Cervical Fusion C5-6 and C Diagnosis Discharge Diagnosis (1) Herniated nucleus pulposus, C6-7: Status: Acute Code(s): M50.223 - Other cervical disc displacement at C6-C7 level Medications at Discharge Home Medications albuterol sulfate 90 mcg/actuation aerosol inhaler 1 - 2 puff inhalation Q6H PRN PRN Sob &/Or Wheezing 12/29/16 escitalopram oxalate 20 mg tablet 20 mg PO DAILY DEPRESSION 11/21/20 omeprazole 40 mg capsule,delayed release 40 mg PO DAILY GERD 11/21/20 bupropion HCl 150 mg tablet,12 hr sustained-release (Wellbutrin SR) 150 mg PO DAILY 05/02/21 vibegron 75 mg tablet (Gemtesa) 75 mg PO DAILY 12/17/22 albuterol sulfate 2.5 mg/0.5 mL solution for nebulization 2.5 mg inhalation Q6H PRN shortness of breath or wheezing 01/20/23 loperamide 2 mg capsule 2 mg PO DAILY 01/20/23 tizanidine 4 mg tablet mg PO 02/04/23 Weight / BMI Weight Weight: 173 lb 8.061 oz Body Mass Index (BMI) 27.2 ABG / Lab / Microbiology Data 02/12/23 06:25 02/12/23 06:25 Laboratory: Laboratory Results - last 24 hr 02/12/23 06:25: WBC 9.0, RBC 3.49 L, Hgb 10.2 L, Hct 31.7 L, MCV 90.8, MCH 29.2, MCHC 32.2, RDW Std Deviation 42.5, RDW Coeff of Vaenssa 12.9, Plt Count 201, MPV 10.8, Immature Gran % (Auto) 0.400, Neut % (Auto) 68.8, Lymph % (Auto) 21.6, [place] % (Auto) 7.2, Eos % (Auto) 1.6, Baso % (Auto) 0.4, Absolute Neuts (auto) 6.2, Absolute Lymphs (auto) 1.95, Nucleated RBC % 0, Sodium 142, Potassium 3.7, Chloride 105, Carbon Dioxide 32.0, Anion Gap 5, BUN 18, Creatinine 0.81, Estim Creat Clear Calc 63.96, Est GFR (MDRD) Af Amer 91, Est GFR (MDRD) Non-Af 75, BUN /Creatinine Ratio 22.3 H, Glucose 93, Calcium 8.5, Phosphorus 2.2 L, Magnesium 2.3 Microbiology: Microbiology 01/21/23 08:42 Swab (Method) Nasal Screen MRSA/MSSA - Final D/C Instructions May shower in (days): 5 May resume sexual activity in: 4-6 weeks Meaningful Use Info Meaningful Use Diagnoses (Choose all that apply): None applicable Discharge Plan Admission Admit Date/Time: 02/10/23 07:36 Primary Reason for Your Visit: cervical fusion Attending Provider: Marcin Nascimento Primary Care Provider: Eagle Monzon Consulting Providers: Marco Rosales; Cresencio Matias Discharge Orders/Prescriptions Prescriptions: No Action bupropion HCl [Wellbutrin SR] 150 mg tablet sustained-release 12 hr 150 mg PO DAILY Gemtesa 75 mg tablet 75 mg PO DAILY tizanidine 4 mg tablet PO Patient Comments: take 1 Tablet THREE TIMES DAILY NEEDED omeprazole 40 mg capsule,delayed release(DR/EC) 40 mg PO DAILY Patient Comments: TAKE 1 CAPSULE BY MOUTH DAILY albuterol sulfate 1 INHALER inhaler 1 - 2 puff INHALATION Q6H PRN PRN (Reason: Sob &/Or Wheezing) escitalopram oxalate 20 mg tablet 20 mg PO DAILY albuterol sulfate 2.5 mg/0.5 mL solution for nebulization 2.5 mg inhalation Q6H PRN (Reason: shortness of breath or wheezing) Patient Comments: use 1 (ONE) vial FOUR TIMES DAILY NEEDED loperamide 2 mg capsule 2 mg PO DAILY Patient Comments: TAKE 1 CAPSULE BY MOUTH ONCE DAILY Referrals / Follow Up: Eagle Monzon MD [Primary Care Provider] - Disposition Disposition (needs filled in before D/C Order can be placed): Home, Self Care
[2023-02-12] MEDS: Acetaminophen 500 MG Tablet 1000 MG PO (13:30)
== END 2023-02-12 15:35 | disposition home or self-care (01) ==
LOC: SDC 14:49 → MS3 14:49
PROVIDERS: Anesthesiology; Admitting Provider Orthopaedic Surgery; PCP Family Medicine; Referring Provider Orthopaedic Surgery; Visit Provider Internal Medicine
PROC: (CPT 22551; principal; 2023-02-10 07:00)
DX: M50.223 Other cervical disc displacement at C6-C7 level (principal); M48.02 Spinal stenosis, cervical region; M50.30 Other cervical disc degeneration, unspecified cervical region; J45.20 Mild intermittent asthma, uncomplicated; M43.6 Torticollis; M51.36 Other intervertebral disc degeneration, lumbar region; M47.812 Spondylosis without myelopathy or radiculopathy, cervical region; Z87.891 Personal history of nicotine dependence; K21.9 Gastro-esophageal reflux disease without esophagitis; Z79.899 Other long term (current) drug therapy; F32.A Depression, unspecified; N32.81 Overactive bladder
CPT/HCPCS: 22551; 22845; 22552; 22853 ×2; 20939; 20930; 00670; 36415; 72020; 72040; 80048; 82962; 83735; 84100; 85025; 86703; 86706; 86708; 86803; 87077; 87081; 88304; 88311; 93005; 94668; 96361; 96365; 96366; 96375; 96376; 97116; 97161; 99221; 99252; C1713; J7120; A4216; G0378; G0463; J2405; J3475; J3490

== ENCOUNTER → 2023-03-17 | Outpatient (CLI) | payer MEDICARE, OTHER, SELFPAY ==
--- NOTE | 2023-03-17 | BI_ITS ---
MAMMOGRAPHY - BILATERAL SCREENING REASON FOR EXAM: Female, 67 years old. Routine annual screening examination. PERTINENT HISTORY: Mother with breast cancer. TECHNIQUE: Digital bilateral breast marco antonio (3D mammographic acquisition) in the CC and MLO projections. 2-D mediolateral oblique (MLO) and craniocaudad (CC) views of both breasts were obtained. CAD: Full Field Digital Mammography with Computer Added Detection was performed. COMPARISON: Comparison is made with prior examination dated May 12, 2014 and October 15, 2012. FINDINGS: Breast Composition: The breasts are extremely dense, which lowers the sensitivity of mammography. There are no dominant masses or suspicious calcifications. No other significant abnormalities are identified. There has been no significant change since the prior study. BI/SCRN MAMM (CAD)W/MARCO ANTONIO BILAT IMPRESSION: Stable bilateral screening mammogram. Yearly follow-up mammogram recommended. (A) ASSESSMENT CATEGORY: BIRADS Category 1: Negative. A letter regarding these results will be sent to the patient by the facility within 30 days. Approximately 10% of breast cancers are not detected by mammography. A normal mammogram should not delay biopsy of a clinically suspicious abnormality. [id number] Electronically Signed: Sanjeev Edwards MD at 13:25 EST ,
--- NOTE | 2023-03-17 12:30 | BD_ITS ---
STUDY: DUAL ENERGY X-RAY ABSORPTIOMETRY / DXA REASON FOR EXAM: Female, 67 years old. [id number] TECHNIQUE: Bone Mineral Density (BMD) measurements of lumbar spine and bilateral hips were obtained. COMPARISON: None. FINDINGS: Lumbar Spine (L1-L4): g/cm2 (1.214) / T-score (1.8) / Z-score (3.6) Findings are suggestive of normal bone density with a low fracture risk. Left Femur Total: g/cm2 (1.081) / T-score (1.1) / Z-score (2.4) Left Femoral Neck: g/cm2 (0.934) / T-score (0.8) / Z-score (2.4) Right Femur Total: g/cm2 (1.077) / T-score (1.1) / Z-score (2.4) Right Femoral Neck: g/cm2 (0.925) / T-score (0.7) / Z-score (2.) BD/Dexa Bone Density Study IMPRESSION: The patient is considered normal as outlined below according to World [employer] Organization (WHO) criteria with a low fracture risk. Reference Information: The T-score is the number of standard deviations above or below the standard which is normal for young adults at their peak bone mineral density. The World Health Organization (WHO) interprets the T-scores as follows: Above -1 Normal bone density Between -1 and -2.5 Osteopenia Equal to / or below -2.5 Osteoporosis As a practical clinical guideline, osteopenia may be graded as follows: Mild -1 through -1.5 Moderate -1.6 through -2.0 Severe -2.1 through -2.4 The Z-score is the number of standard deviations above or below age-matched controls. A Z-score of less than -1.5 would be considered abnormal. References: 1. NIH Osteoporosis and Related Bone Diseases www osteo.org 2. International Society for Clinical Densitometry www iscd.org 3. National Osteoporosis Foundation www nof.org Electronically Signed: Sanjeev Edwards MD at 13:15 EST ,
== END | disposition home or self-care (01) ==
LOC: OPBD 12:24
PROVIDERS: PCP Family Medicine; Referring Provider Family Medicine; Visit Provider Family Medicine
DX: Z00.00 Encounter for general adult medical examination without abnormal findings (principal); Z12.31 Encounter for screening mammogram for malignant neoplasm of breast; Z78.0 Asymptomatic menopausal state; Z80.3 Family history of malignant neoplasm of breast
CPT/HCPCS: 77063; 77067; 77080

== ENCOUNTER → 2023-03-24 | Outpatient (CLI) | payer MEDICARE, OTHER, SELFPAY ==
[2023-03-24 12:06] LABS: Absolute Lymphocyte Count 1.42 X10^3/uL (0.83-4.51); Absolute Neutrophil Count 2.4 X10^3/uL (2.0-7.7); Basophil# 0.04 X10^3/uL; Basophil% 0.9 % (0-1); Eosinophil# 0.45 X10^3/uL; Eosinophils% 9.6 % (0-5); Hematocrit 32.9 % (37-47); Hemoglobin 10.5 g/dL (12.0-15.0); Lymphocyte # 1.42 X10^3/ul (0.83-4.51); Lymphocyte % 30.3 % (19-41); Mean Corp Hgb Conc 31.9 g/dL (32-36); Mean Corpuscular Hgb 28.8 pg (27.0-32.0); Mean Corpuscular Volume 90.1 fL (81-99); Mean Platelet Vol. 11.2 fl (6.2-12.0); Monocyte# 0.34 X10^3/uL; Monocyte% 7.2 % (0-10); NRBC Flagged by Analyzer 0 % (0-5); Neutrophil # 2.42 X10^3/uL (2.7-7.7); Neutrophil % 51.6 % (47-70); Platelet Count 221 K/mm3 (150-450); RBC Distribution Width CV 12.4 % (11.6-14.6); RBC Distribution Width SD 41.1 fl (35.1-43.9); Red Blood Count 3.65 M/mm3 (4.2-5.4); White Blood Count 4.7 K/mm3 (4.4-11.0)
[2023-03-24 12:32] LABS: Vitamin B12 694 pg/mL (211-911); Vitamin D,25 Hydroxy 35.4 ng/mL
== END | disposition home or self-care (01) ==
LOC: MFPLAB 10:32
PROVIDERS: PCP Family Medicine; Visit Provider Family Medicine
DX: E53.8 Deficiency of other specified B group vitamins (principal); E55.9 Vitamin D deficiency, unspecified
CPT/HCPCS: 36415; 82306; 82607; 85025

== ENCOUNTER → 2023-04-29 | Outpatient (CLI) | payer MEDICARE, OTHER, SELFPAY ==
--- NOTE | 2023-04-29 13:08 | ST.MBS ---
Modified Barium Swallow Patient Information Study Date: 04/29/23 Study Time: 13:00 Direct Billable Minutes: 74 Total Minutes procedure & reportin Diagnosis: Dysphagia R13.10 Referring Physician: Eagle Monzon Reason for Referral: Objectively assess swallow function, assess risk for aspiration, and determine recommendations for least restrictive diet textures and compensatory strategies to improve safety of swallow. Medical History: PMH: cervical spinal fusion (C5-C6), DDD, herniated nucleus pulposus C5-C6 left, GERD managed by medication, Asthma (SEE EMR for full PMH). The patient has had swallowing difficulty that began ~8 months ago characterized by the sensation that certain foods will not go down. When foods feel caught in her throat, all she can do is wait and resume eating at a later time. She at times will even regurgitate foods. Her swallowing difficulty is primarily with meats. She has lost ~22lbs in the past 6 months due to her swallowing difficulty because many times she has to stop eating. She reported no trouble swallowing immediately following her cervical fusion. She feels the tone of her voice changed slightly, but has noticed no additional changes in her voice since the surgery. Current Diet Ordered: Regular textures / Thin liquids Dentition: Natural Teeth and Missing Teeth Mental Status: WNL Respiratory Status: Oxygenating on Room Air Penetration-Aspiration Scale Penetration-Aspiration Scale: OBJECTIVE ASSESSMENT OF SWALLOW FUNCTION (QUANTITATIVE ? PER TRIAL): PENETRATION / ASPIRATION SCALE (DUMONT): 1 = does not enter airway 2 = enters airway/above vocal folds/ejected 3 = enters airway/above vocal folds/not ejected 4 = enters airway/contacts vocal folds/ejected 5 = enters airway/contacts vocal folds/not ejected 6 = enters airway/below vocal folds/ejected 7 = enters airway/below vocal folds/not ejected despite effort 8 = enters airway/below vocal folds/no effort VIDEOFLOROSCOPIC SCALE SCORE (DUMONT): Grade I = aspiration of material that has penetrated into the laryngeal vestibule, intact cough reflex Grade II = aspiration < 10 % of the bolus, intact cough reflex Grade III = aspiration of < 10 % of the bolus, reduced cough reflex or aspiration of > 10 % of the bolus, intact cough reflex Grade IV = aspiration of > 10 % of the bolus, reduced cough reflex Penetration-Aspiration Scale Score Thin Liquid via teaspoon: Result: 1= does not enter airway Thin Liquid via teaspoon Trial 2: Result: 1= does not enter airway Thin Liquid via large single sip: cup: Result: 1= does not enter airway Thin Liquid via sequential sips: cup: Result: 2= enter airway/above vocal folds/ejected Comment: Esophageal Screen - Fully cleared. [employer] Thick Liquid via large single sip: cup: Result: 1= does not enter airway Pudding via teaspoon: Result: 1= does not enter airway Cookie: Result: 1= does not enter airway Comment: Esophageal Screen - Retention throughout mid and lower esophagus with min retrograde flow. Re-checked esophagus minutes later and cookie had cleared prior to liquid wash. Thin Liquid via single sip: straw: Result: 1= does not enter airway Oral Phase Labial Seal: No Labial Escape Tongue Control During Bolus Hold: Cohesive bolus between tongue to palatal seal Bolus Preparation/Mastication: Timely and efficient chewing and mashing Bolus Transport/Lingual Motion: Brisk tongue motion Oral Residue: Residue collection on oral structures (piecemeal deglutition of large sips) Pharyngeal Phase Initiation of Pharyngeal Swallow: Bolus head in pyriforms Soft Palate Elevation: Trace column of contrast/air between soft palate and pharyngeal wall Laryngeal Elevation: Comp. Superior move thyroid cart w/comp. apprx arytenoid cart-epig pet Anterior Hyoid Excursion: Partial anterior movement Epiglottic Movement: Complete inversion Laryngeal Vestibule Closure at Height of Swallow: Incomplete; narrow column of air/contrast in laryngeal vestibule (trace laryngeal penetration on sequential thin) Pharyngeal Stripping Wave: Present - diminished Pharyngoesophageal Segment Opening: Complete distension and complete duration; no obstruction of flow Tongue Base Retraction: Narrow column of contrast between tongue base & post. pharyngeal wall Pharyngeal Residue: Collection of residue within or on pharyngeal structures Esophageal Phase Esophageal Clearance: Esophageal retention w/ retrograde flow below pharyngoesophageal seg. Diagnosis/Impression Diagnosis: Mild pharyngeal dysphagia R13.13; Esophageal dysphagia R13.14 Impression: Very mild pharyngeal phase deficits characterized by delayed swallow onset, mildly decreased pharyngeal stripping wave, and mildly decreased tongue base retraction. Despite these deficits, she has only trace-mild pharyngeal residues, which she fully clears with second swallows as needed. Additionally, she demonstrated good airway closure with no aspiration and trace laryngeal penetration of sequential sips fo thin liquids. The esophageal phase is primarily marked by... -Retention of cookie throughout mid and lower esophagus with min retrograde flow. -BEEF BREAKER suspects esophageal dysphagia is causing the severity of symptoms described above, including foods feeling caught and regurgitation. Recommendations Diet: Regular Textures and Thin Liquids Comment: Consider 4-5 smaller meals vs. 3 larger meals. STOP meal and resume at a later time if sensing retention despite use of strategies. Compensatory Strategies: Small Bites, Small Sips, Slow Rate, Alternate bites/solids and sips/liquids, Sitting upright and Remain sitting upright for 30 minutes after PO intake Recommend Repeat Modified Barium Swallow: No Need for Skilled Speech Therapy Services: No Recommended Referrals: GI Consult Education Completed: 1. Described result of evaluation. Status Active ST Patient: Active Contact Information [facility] Speech Therapy:: Bethany Corea M.A. [facility]-BEEF BREAKER Speech-Language Pathologist [facility] [address] [place] [address] [email or web address] [phone]
== END | disposition home or self-care (01) ==
LOC: RAD 12:50
PROVIDERS: PCP Family Medicine; Referring Provider Family Medicine; Visit Provider Family Medicine
DX: R13.10 Dysphagia, unspecified (principal)
CPT/HCPCS: 74230; 92611

== ENCOUNTER → 2023-05-28 | Outpatient (CLI) | payer MEDICARE, OTHER, SELFPAY ==
--- NOTE | 2023-05-28 09:35 | RAD_ITS ---
STUDY: X-RAY CHEST REASON FOR EXAM: Female, 67 years old. Cough TECHNIQUE: PA and lateral views of the chest. COMPARISON: Comparison is made with prior study September 29, 2020 FINDINGS: There is hyperinflation of the lungs consistent with chronic obstructive lung disease (COPD). There is no demonstrated pleural abnormality. Normal size heart. Normal mediastinum and bertrand. Normal visualized pulmonary arteries. There is atherosclerotic calcification of the aortic arch with tortuosity. There are diffuse degenerative changes of the visualized thoracic spine. Prior cervical fusion. There is no demonstrated abnormality of the visualized soft tissue structures of the upper abdomen. RAD/Chest PA and Lateral IMPRESSION: Hyperinflation. The lungs are clear. Electronically Signed: Sanjeev Edwards MD at 12:46 EST ,
== END | disposition home or self-care (01) ==
LOC: MTRAD 09:35
PROVIDERS: PCP Family Medicine; Referring Provider Family Medicine; Visit Provider Family Medicine
DX: R05.9 Cough, unspecified (principal); J18.9 Pneumonia, unspecified organism
CPT/HCPCS: 71046

== ENCOUNTER → 2023-06-08 | Outpatient (CLI) | payer MEDICARE, OTHER, SELFPAY ==
--- NOTE | 2023-06-08 09:37 | RAD_ITS ---
STUDY: X-RAY - ESOPHAGUS (BARIUM SWALLOW) WITH FLUOROSCOPY REASON FOR EXAM: Female, 67 years old. DYSPHAGIA TECHNIQUE: 15 view(s) of the esophagus were obtained following swallowing of barium. FLUOROSCOPY TIME (if supplied): (34 seconds) minutes/seconds. 23.73 mGy COMPARISON: None. FINDINGS: There is no demonstrated esophageal foreign body. There is no demonstrated stricture or mucosal abnormality. There is a small hiatal hernia of the fundus of the stomach. Gastroesophageal reflux. Normal visualized aortic arch and descending thoracic aorta. Normal visualized pulmonary parenchyma. Normal visualized osseous structures of the thorax. RAD/Esophagus Dual Contrast IMPRESSION: Gastroesophageal reflux. Small hiatal hernia. Electronically Signed: Sanjeev Edwards MD at 10:13 [facility] ,
== END | disposition home or self-care (01) ==
LOC: RAD 09:31
PROVIDERS: PCP Family Medicine; Referring Provider Internal Medicine Gastroenterology; Visit Provider Internal Medicine Gastroenterology
DX: R13.10 Dysphagia, unspecified (principal)
CPT/HCPCS: 74221

== ENCOUNTER → 2023-08-05 | Outpatient (CLI) | payer MEDICARE, OTHER, SELFPAY ==
[2023-08-05 10:06] LABS: Absolute Lymphocyte Count 1.35 X10^3/uL (0.83-4.51); Absolute Neutrophil Count 2.4 X10^3/uL (2.0-7.7); Basophil# 0.04 X10^3/uL; Basophil% 0.9 % (0-1); Eosinophil# 0.39 X10^3/uL; Eosinophils% 8.5 % (0-5); Hematocrit 35.9 % (37-47); Hemoglobin 11.5 g/dL (12.0-15.0); Lymphocyte # 1.35 X10^3/ul (0.83-4.51); Lymphocyte % 29.5 % (19-41); Mean Corpuscular Hgb 27.9 pg (27.0-32.0); Mean Corpuscular Volume 87.1 fL (81-99); Mean Platelet Vol. 11.1 fl (6.2-12.0); Monocyte# 0.39 X10^3/uL; Monocyte% 8.5 % (0-10); NRBC Flagged by Analyzer 0 % (0-5); Neutrophil # 2.39 X10^3/uL (2.7-7.7); Neutrophil % 52.2 % (47-70); Platelet Count 258 K/mm3 (150-450); RBC Distribution Width CV 13.2 % (11.6-14.6); RBC Distribution Width SD 41.8 fl (35.1-43.9); RET-HE 32.9 pg (30-35); Red Blood Count 4.12 M/mm3 (4.2-5.4); Reticulocyte Count 1.22 % (0.5-1.5); White Blood Count 4.6 K/mm3 (4.4-11.0)
[2023-08-05 10:37] LABS: AST(SGOT) 14 U/L (15-37); Alanine Aminotransfer ALT/SGPT 17 U/L (13-56); Albumin, Serum 3.8 g/dL (3.2-5.0); Alkaline Phosphatase 75 U/L (45-117); Anion Gap 4 (5-15); BUN 19 mg/dL (7-18); BUN/Creat Ratio 19.3 RATIO (10-20); Calcium,Total 9.4 mg/dL (8.5-10.1); Chloride 109 mmol/L (98-107); Cholesterol 204 mg/dL (200); Creatinine, Serum 0.99 mg/dL (0.55-1.02); EST Glomerular Filtration Rate 60 mL/min (>60); Est Glom Filt Rate - Afr Amer 72 mL/min (>60); Ferritin 10 ng/mL (8-252); Globulin 3.7 g/dL (2.2-4.2); Glucose 104 mg/dL (74-106); High Density Lipoprotein 69 mg/dL; Iron 67 ug/dL (50-170); Iron Binding Capacity,Total 407 ug/dL (250-450); Potassium 4.5 mmol/L (3.5-5.1); Protein, Total 7.5 g/dL (6.4-8.2); Sodium Level 138 mmol/L (136-145); Thyroid Stim Hormone (TSH) 1.35 uIU/mL (0.358-3.74); Triglycerides 96 mg/dL; Very Low Density Lipoprotein 19 mg/dL (5-40)
[2023-08-05 12:06] LABS: Vitamin B12 495 pg/mL (211-911); Vitamin D,25 Hydroxy 33.9 ng/mL
== END | disposition home or self-care (01) ==
LOC: MFPLAB 08:32
PROVIDERS: PCP Family Medicine; Visit Provider Family Medicine
DX: D64.9 Anemia, unspecified (principal); R53.83 Other fatigue; E78.5 Hyperlipidemia, unspecified
CPT/HCPCS: 36415; 80053; 80061; 82306; 82607; 82728; 83540; 83550; 84443; 85025; 85045

== ENCOUNTER → 2024-01-06 | Outpatient (CLI) | payer MEDICARE, OTHER, SELFPAY ==
--- NOTE | 2024-01-06 15:45 | RAD_ITS ---
EXAM: XR LEFT HIP WITH PELVIS WHEN PERFORMED, 2 OR 3 VIEWS CLINICAL INDICATION: L groin pain. TECHNIQUE: Two or three views of the left hip with pelvis when performed. COMPARISON: 11/09/[address] abdomen and pelvis, 04/02/2021. FINDINGS: BONES/JOINTS: Postoperative changes at L4-L5 and L5-S1 with discectomy and fusion. Mild acetabular hypertrophy with marginal osteophyte. Degenerative changes in the spine and SI joints bilaterally. No destructive or sclerotic lesions. Note that overlapping bowel shadows may however obscure fine detail. No widening of the pubic symphysis. No acute fracture or dislocation. SOFT TISSUES: No significant abnormality. No soft tissue swelling or gas. RAD/HIP, UNI W/ Pelvis 2-3 Views IMPRESSION: No acute fracture or dislocation. Postoperative and degenerative changes. Electronically Signed: Sal Garcia DO at 21:00 EDT ,
== END | disposition home or self-care (01) ==
LOC: MTRAD 15:45
PROVIDERS: PCP Family Medicine; Referring Provider Family Medicine; Visit Provider Family Medicine
DX: R10.32 Left lower quadrant pain (principal)
CPT/HCPCS: 73502

== ENCOUNTER 2024-01-28 16:30 | Outpatient (RCR) | payer MEDICARE, OTHER, SELFPAY ==
--- NOTE | 2024-01-19 17:46 | HP.PTEVAL_ITS ---
Patient's Visit Information Visit Information Visit Information: ROHAN ROSALES is a 68 year old F referred to Physical Therapy by Dr. Toño Monzon MD with a diagnosis of L hip OA. Date of Evaluation: 01/19/24 Physical Therapist: Pradeep Marr, DPT, OCS, CSCS Visit Plan Frequency: 2-3x /Week Duration: 4-6 Weeks Plan: 2-3x/week for 4-6 starting auatic therapy for 1. L hip ROM emphasizing ext adn IR and stretching of quad and HS 2. hip and core stabs progressing to I pool program as member consider manual after I with pool if desired, needed. Subjective Subjective: L hip pain has been there for 6 months insidiously. Groin pain. Job has her doing a lot of walking and now it hurts out to side laterally also. Hard time walking. Works for [email or web address] in [employer]. Does not miss work. Sleep is OK right now. Hobbies: Bowling but cannot as she gets sharp pain with releasing ball. Basic ADL: all I but painful. Worried about falling on steps Pain L groin.: Pain Intensity (Out of 10): 3 Pain Intensity Range: 0 and 10 Comment: sharp pain turning or pivot Objective Objective: L hip Walks with slight L antalgia and hesitancy but I short steps. Trasnfers bed and chair I. Steps [id number] with one rail not trusting L leg. Back AROM limited ext and SB B with some pain with ext. L hip PROM to 105 flexion painful, 110 R. IR very painful L and 5 degrees, R is 10, er 50 L and R without pain. Extension 5 L and 10 R, pain on L side in groin. quads mod tight L and min tight R. HS testing -25 on 90/90 test B. L hip strength abd 4- and R 4, flexion 4- B, ext 3+ L and 4- R, knees flex/ext 4 B, ankles are 4+ B knee and ankle AROM WFL. reflexes 2/3 B patella and achilles Sensation LE WNL to gross lgiht touch. + FADDIR on L maximally, - DORINDA. 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 Goal Time Frame: 4-6 Weeks Goal 2:: Pain in L hip 4/10 at worst and 0-1 with daily activity and 70% better Goal Time Frame: 4-6 Weeks Goal 3:: walk 2 miles without increased pain at work Goal Time Frame: 4-6 Weeks Goal 4:: sleep without waking at night due to pain Goal Time Frame: 4-6 Weeks Rehabilitation Potential Physical Therapy Diagnosis: L hip pain and limited ROM, flexibility, strength limiting comfortable funciton. Rehabilitation Potential: Fair Anticipated Interventions Patient/Client Instruction: Educate patient on: Condition For the Purpose of:: To decrease pain, To increase ROM, To improve nutrient delivery to tissue, To improve muscle performance and motor function and To improve gait and locomotor functions Therapeutic Exercise to Include: Strength training, Flexibilty training, In an aquatic setting, Passive ROM and Active ROM For the Purpose of:: To decrease pain, To increase ROM, To improve nutrient delivery to tissue, To improve muscle performance and motor function and To improve gait and locomotor functions Manual Therapy Techniques to Include: Mobilization, Passive ROM and Soft tissue mobilization For the Purpose of:: To decrease pain, To increase ROM and To improve nutrient delivery to tissue Text: Thank you for the opportunity to evaluate your patient. For Medicare and Medicare HMO plans, please review the plan of care and approve it. It will need to be FAXED BACK to us at [phone] for Medicare purposes. For Medicare only, by signing this I certify the plan of care. Please let me know if there are questions or concerns regarding this plan of care. Physician Signature: Date:
== END 2024-04-08 15:50 | disposition home or self-care (01) ==
LOC: PT 16:30
PROVIDERS: PCP Family Medicine; Referring Provider Family Medicine; Visit Provider Family Medicine
DX: M16.12 Unilateral primary osteoarthritis, left hip (principal)
CPT/HCPCS: 97113; 97161

== ENCOUNTER 2024-02-02 06:38 | Day surgery (SDC) | payer MEDICARE, OTHER, SELFPAY ==
[2024-02-02] VITALS (7 sets, daily range): BP systolic 99–148; BP diastolic 66–84; PULSE 83–94; RESP 16–18; TEMP 36.6–36.8; O2SAT 93–98; BMI 26.6
--- NOTE | 2024-02-02 07:05 | PCM.PRE.AN2 ---
ASA Classification* ASA Classification ASA Classification: 2 Assessment & Plan Anesthesia* Anesthesia Assessment Anesthesia Assessment: Discussed sedation and/or anesthesia options, risks, benefits, and alternatives with patient/parents/legal guardian/POA. Questions invited. The patient/parents/legal guardian/POA seems to understand and agrees to proceed with anesthesia plan. Reviewed the physical assessment, medical history, allergy history and patient home medications list prior to surgery/procedure/anesthetic and documented any changes. Performed airway and anesthesia risk assessments. Anesthesia Type Anesthesia Type: MAC (see written pre anestesia record for full assessment) Anesthesia Focused Assessment* Temperature: 97.8 F Pulse Rate: 90 Blood Pressure: 148/84 Respiratory Rate: 17 Pulse Ox: 98 Airway Assessment Mouth opens: >3 cm Mallampati Score: II Focused Labs Anesthesia Preop lab: CBC WBC 4.6 K/mm3 (4.4-11.0) 08/05/23 08:32 RBC 4.12 M/mm3 (4.2-5.4) L 08/05/23 08:32 Hgb 11.5 g/dL (12.0-15.0) L 08/05/23 08:32 Hct 35.9 % (37-47) L 08/05/23 08:32 Plt Count 258 K/mm3 (150-450) 08/05/23 08:32 CHEMISTRY Potassium 4.5 mmol/L (3.5-5.1) 08/05/23 08:32 Sodium 138 mmol/L (136-145) 08/05/23 08:32 Magnesium 2.3 mg/dL (1.6-2.6) 02/12/23 06:25 Phosphorus 2.2 mg/dL (2.5-4.9) L 02/12/23 06:25 BUN 19 mg/dL (7-18) H 08/05/23 08:32 Creatinine 0.99 mg/dL (0.55-1.02) 08/05/23 08:32 Glucose 104 mg/dL (74-106) 08/05/23 08:32 POC Glucose 109 mg/dL (74-106) H 02/10/23 06:27 TSH 1.35 uIU/mL (0.358-3.74) 08/05/23 08:32 COAG Pre-Assessment Diagnosis/Proposed Procedure Planned Operative Procedure(s): (R) Right middle finger A1 adolph release Anesthesia History 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 When Was Last Pacemaker Check QUESTION #4 FULL TEXT: You/Your Family Experience fever (hyperthermia) with Anesthesia Last Oral Intake Last Oral intake: Last Oral Intake NPO since 00:00 02/02/24 06:57 Meds taken in AM with sips of No 02/02/24 06:57 water? Meds patient instructed to take am of surgery PONV PONV - inside sales executive: PONV - inside sales executive Female Yes 01/25/24 14:28 HX of Motion Sickness No 01/25/24 14:28 HX of N/V After Surgery No 01/25/24 14:28 Non-Smoker Yes 01/25/24 14:28 Duration of Surgery greater No 01/25/24 14:28 than 60 minutes Number of Risk Factors 2 01/25/24 14:28 PONV Score Moderate Risk 01/25/24 14:28 Height & Weight Height & Weight: Anesthesia: Height & Weight Height 5 ft 6.93 in 02/02/24 06:57 Weight: 77 kg 02/02/24 06:57 Body Mass Index (BMI) 26.6 02/02/24 06:57 Respiratory Assessment Respiratory Assessment - inside sales executive: Respiratory Tract Infection Hx - inside sales executive Hx Respiratory Tract Infection No 01/25/24 14:28 STOP Sleep Apnea STOP Sleep Apnea - inside sales executive: STOP Sleep Apnea - inside sales executive Hx Hypertension No 01/25/24 14:28 Hx Sleep Apnea Yes: HOME TEST DONE, 01/25/24 14:28 REFERRED TO INPT TEST, WAITING RESULTS CPAP No 01/25/24 14:28 BIPAP No 01/25/24 14:28 Do you snore loudly (louder Yes 01/25/24 14:28 than talking or can be heard Do you often feel tired/ No 01/25/24 14:28 fatigued/ sleepy during daytime? Has anyone observed you stop No 01/25/24 14:28 breathing during sleep? STOP Results Positive 01/25/24 14:28 QUESTION #5 FULL TEXT : Do you snore loudly (louder than talking or can be heard through closed doors)? 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 Specify any problems Hx of Preganancy in last 3 N/A 01/25/24 14:28 Months Nurse Filling Out Transfusion NBUCHER 01/25/24 14:28 & Questions: Date: 01/25/24 01/25/24 14:28 Time: 14:29 01/25/24 14:28 Patient unable to answer at this time (ie. confused, unrespo /Reproduction History /Reproductive History - inside sales executive: /Reproductive Hx- inside sales executive Hx Now Gestational Age (in weeks): EDC: Hx Hx Para Hx Section SAB No 01/25/24 14:28 Active Medications Active Medications: Current Medications Generic Name Dose Route Start Last Admin Trade Name Freq PRN Reason Stop Dose Admin Cefazolin Sodium 2 gm/ N/A 20 mls @ 400 mls/hr 02/02/24 08:20 IV 02/02/24 08:22 [facility] Medical History Cardiology follow-up encounter Post-menopausal Anxiety Alcohol use History of steroid therapy Arthritis Bladder disease Low iron Back pain Headache Injury of head and neck History of ulceration History of IBS Shortness of breath on exertion Leg cramps History of echocardiogram History of stress test Osteoarthritis of left knee Spinal stenosis at L4-L5 level Wears glasses GERD (gastroesophageal reflux disease) Former smoker Asthma Chest pain, unspecified Chronic back pain Obesity (BMI 30.0-34.9) Asthma Restless leg syndrome Depression Home Medications ?Medication ?Instructions ?Recorded ?Last Taken ?Type albuterol sulfate 90 mcg/actuation 1 - 2 puff inhalation Q6H PRN PRN 12/29/16 09/25/20 04:30 History aerosol inhaler Sob &/Or Wheezing 1 - 2 PUFF escitalopram oxalate 20 mg tablet 20 mg PO DAILY DEPRESSION 11/21/20 02/01/24 History omeprazole 40 mg capsule,delayed 40 mg PO DAILY GERD 11/21/20 02/01/24 History release bupropion HCl 150 mg tablet,12 hr 150 mg PO DAILY 05/02/21 02/01/24 History sustained-release (Wellbutrin SR) vibegron 75 mg tablet (Gemtesa) 75 mg PO DAILY 12/17/22 02/01/24 History albuterol sulfate 2.5 mg/0.5 mL 2.5 mg inhalation Q6H PRN 01/20/23 Unknown History solution for nebulization shortness of breath or wheezing loperamide 2 mg capsule 2 mg PO DAILY 01/20/23 02/01/24 History ropinirole 0.25 mg tablet 0.25 mg PO BID 01/18/24 02/01/24 History Allergy/AdvReac Type Severity Reaction Status Date / Time aripiprazole (From Abilify) Allergy Mild rash Verified 02/02/24 06:56 codeine Allergy Rash Verified 02/02/24 06:56 meperidine HCl (From Demerol) Allergy Rash Verified 02/02/24 06:56 oxycodone HCl (From Percocet) Allergy Rash Verified 02/02/24 06:56 Family History Mother Heart disease Breast cancer Father Cancer Pancreatic Cancer Surgical History History of fusion of cervical spine History of cardiac catheterization History of lumbar fusion History of elbow surgery S/P colonoscopy History of esophagogastroduodenoscopy Status post arthroscopic knee surgery S/P appendectomy History of back surgery Social History Smoking Status: Former smoker alcohol intake: current alcohol intake frequency: holidays/special occasions only substance use type: marijuana what type of physical activity do you participate in: walking seatbelt use: always do you feel safe at home: Yes additional social history: single Patient works for [employer] Review of Systems (Anesthesia) ROS Narrative System reviewed and no additional complaints, except as documented.
--- NOTE | 2024-02-02 07:08 | HP.PCM_ITS ---
History and Physical Date of Admission: 02/02/24 [facility] [address] [place] [address] OFFICE VISIT Date of Service: 01/18/24 MR#: [id number] Acct: [id number] Name: ROHAN ROSALES Rep #: [id number] : [id number] Provider: Dr. Francisco Don DO Age/Sex: 68/F [place] [facility] [place]: Signed Intake Vital Signs 05/06/2407:04 Height 5 ft 6.93 in Intake Visit Reasons: BI LAT HANDS Is patient in pain?: Yes Allergies aripiprazole (From Abilify) Allergy (Mild, Verified 01/18/24 15:48) rashcodeine Allergy (Verified 01/18/24 15:48) Rashmeperidine HCl (From Demerol) Allergy (Verified 01/18/24 15:48) Rashoxycodone HCl (From Percocet) Allergy (Verified 01/18/24 15:48) Rash Medications ?Medication ?Instructions ?Recorded ?Confirmed ?Type albuterol sulfate 90 mcg/actuation 1 - 2 puff inhalation Q6H PRN PRN 12/29/16 06/18/23 History aerosol inhaler Sob &/Or Wheezing escitalopram oxalate 20 mg tablet 20 mg PO DAILY DEPRESSION 11/21/20 06/18/23 History omeprazole 40 mg capsule,delayed 40 mg PO DAILY GERD 11/21/20 06/18/23 History release bupropion HCl 150 mg tablet,12 hr 150 mg PO DAILY 05/02/21 06/18/23 History sustained-release (Wellbutrin SR) vibegron 75 mg tablet (Gemtesa) 75 mg PO DAILY 12/17/22 06/18/23 History albuterol sulfate 2.5 mg/0.5 mL 2.5 mg inhalation Q6H PRN 01/20/23 06/18/23 History solution for nebulization shortness of breath or wheezing loperamide 2 mg capsule 2 mg PO DAILY 01/20/23 06/18/23 History ropinirole 0.25 mg tablet 0.25 mg PO BID 01/18/24 01/18/24 History Have you fallen in the past year?: No PFSH Medical History Alcohol use Anxiety Arthritis Asthma Asthma Back pain Bladder disease Cardiology follow-up encounter Chest pain, unspecified Chronic back pain Depression Former smoker GERD (gastroesophageal reflux disease) Headache History of echocardiogram History of IBS History of steroid therapy History of stress test History of ulceration Injury of head and neck Leg cramps Low iron Obesity (BMI 30.0-34.9) Osteoarthritis of left knee Post-menopausal Restless leg syndrome Shortness of breath on exertion Spinal stenosis at L4-L5 level Wears glasses Surgical History History of back surgery History of cardiac catheterization History of elbow surgery History of esophagogastroduodenoscopy History of lumbar fusion S/P appendectomy S/P colonoscopy Status post arthroscopic knee surgery Family History Mother Heart disease Breast cancerFather Cancer Pancreatic Cancer Social History Smoking Status: Former smoker alcohol intake: current alcohol intake frequency: holidays/special occasions only substance use type: marijuana what type of physical activity do you participate in: walking seatbelt use: always do you feel safe at home: Yes additional social history: single Patient works for [employer] Details: This documentation accurately reflects the service provided and the decisions made by me, Dr. Francisco Don, DO 01/18/24 0240. Part of today?s visit was documented by [ ], acting as scribe. ROHAN ROSALES is a 68 year old F here today for bilateral middle finger pain. Patient notes that she has had finger pain of his left hand DIP for a few years. Patient complains of swelling and deformity into her left middle finger. She notes that her right middle finger triggers and gets stuck. When she wakes up in the morning she needs to move her finger to unlock it. She has increased pain with all activities. Patient denies any physical therapy or injections. Patient takes dual action advil tylenol if she is very painful. Patient denies any xrays. Ortho Exam General General: Yes no acute distress Neurologic: Yes alert and Yes oriented x3 Psychologic: Yes reasonable and appropriate Right Wrist/Hand WRIST: Tender and hypertrophied A1 adolph middle finger palpable triggering, lacking 15 extension of PIP joint and 5 degrees at DIP ulnar nerve decompression at elbow and wrist scars Left Wrist/Hand WRIST: no palpable triggering, bony hypertrophy of the DIP joint there is very little movement at this joint it is tender there is no signs of infection there is no open wound there is brisk capillary refill intact flexor and extensor tendons Head: Normocephalic Atraumatic Chest: symmetrical rise, non-labored breathing, no audible wheeze Abdomen: no guarding, non-rigid Supplemental Info 01/18/2024 x-ray left middle finger there is degenerative joint disease of the DIP joint with a large dorsal osteophyte. 08/25/2022 x-ray right wrist: No acute abnormality there is mild first CMC joint arthrosis there is also is a slight curve to the ulnar styloid which may have been indicative of a healed prior fracture in the area of note there is first MP joint arthrosis Coding Level of Care Code Off vis,est,level 4 Diagnoses Trigger finger, right middle finger M65.331 Osteoarthritis of left middle finger M19.042 Assessment and Plan Assessment and Plan (1) Trigger finger, right middle finger: (2) Osteoarthritis of left middle finger: Orders: Orders Finger(s) Min 2 Views Today M79.646 - Pain in unspecified finger(s) Plan Spoke with the patient about the right middle finger A1 adolph/trigger finger and her options- steroid injection vs trigger finger release. Spoke with her about the surgery procedure. She may have sensitivity of her incision for 3-4 months post op. Reviewed the pre-operative plans with the patient. Risks and benefits of the procedure were fully explained, including but not limited to infection, neurovascular injury, continued pain, arthritis, stiffness, need for further surgery, re-injury, DVT, PE, general risks of anesthesia, and loss of limb or life. The patient understands all the risks and does wish to proceed with written consent. Explained that she has osteoarthritis of her left middle finger. Spoke with her about her options- fusion of joint, removal of bone cyst or disarticulation of the DIP joint. If she wants something surgical, she would need to see an upper extremity specialist. Follow up for 2 week post op or sooner if pain, swelling, numbness or associated symptoms, or concerns develop. All questions answered. Patient in agreement of plan. Clinical Quality Measures Falls Risk Screening/Assistive Devices Have you fallen in the past year?: No 01/18/24 1630 <Electronically signed by Francisco Don DO> Date Francisco Don DO Cosigner Signature: Date (if applicable) I have examined the patient and the H&P has been reviewed. There are no clinical changes since date of exam.
[2024-02-02] MEDS: Cefazolin 2 GM in Syringe IV (08:29)
[2024-02-02] MEDS: Lidocaine 1% /Epi 1:100 (20ml) 20 ML Vial (08:44)
--- NOTE | 2024-02-02 08:58 | PCM.OP.BLANK ---
Operative Report Date of Procedure: 02/02/24 Preoperative diagnosis; right middle digit trigger finger Postoperative diagnosis; same Procedure: Right middle digit A1 adolph release Anesthesia: Local with MAC Tourniquet time; 10 minutes 250 mm Hg Complications: None Indication for procedure; This is a 68-year-old female with symptoms consistent with trigger finger. Risks benefits and alternatives were reviewed including risks of bleeding infection nerve tendon tissue damage need for further surgery and continued pain and symptoms, hypersensitivity to scar/incision and recurrence. Procedure; The patient was met in the preoperative holding area the operative extremity was identified by both patient and physician and was marked the patient was met by anesthesia and brought back to the operating room and transferred to the operating table in the supine position. Aanesthesia was started. A well-padded tourniquet was placed on the operative upper extremity. The patient was prepped and draped in the usual sterile fashion. A timeout was called to ensure the proper patient procedure and extremity were being contemplated. 0.5 percent Marcaine was injected into the incisional area. Esmarch was used tourniquet was inflated. 15 blade scalpel was used to make a longitudinal incision directly over the A1 adolph was carried down through the subcutaneous tissue Robbin retractors placed radial and ulnar protecting the digital nerves and a Ragnell retractor was used at the apex of the incision under direct visualization a deep blade scalpel was used to release the A1 adolph. The wound was thoroughly irrigated and closed with 4-0 nylon vertical mattress edges. Dressing was applied in the form of Xeroform 4 x 4 web roll and an Mingo wrap. Patient tolerated the procedure well was brought back to the PACU in stable condition.
--- NOTE | 2024-02-02 08:59 | DCINST_ITS ---
Discharge Instructions Diet Discharge Diet: No restrictions Dressing / Incision Call your doctor if you observe: Shortness of breath and Chest pain Additional Dressing/Incision Instructions:: Ice and elevate operative extremity next 72 hours. Keep dressing on clean and dry for 48 hours then may remove and allow warm soapy water to rinse over incision but do not submerge until sutures are out. Then apply bandaid over incision and change daily. encourage finger range of motion. Not lift more than 1/2 pound. Minimize narcotic use only as needed and directed, may use OTC NSAID and Tylenol to supplement/substitute for pain control. Follow Up Care Please Follow Up With: Francisco Don DO When: 2 weeks Test Results: Test results from this visit will be discussed in further detail at your follow- up appointment, if applicable. Discharge Plan Admission Primary Reason for Your Visit: Right middle finger A1 adolph release Attending Provider: Francisco Don Primary Care Provider: Toño Monzon Instructions Print Language: Kosovan Discharge Orders/Prescriptions Prescriptions: New oxycodone 5 mg tablet 2.5 - 5 mg PO Q4H PRN (Reason: pain) 3 Days Qty: 7 0RF Continued bupropion HCl [Wellbutrin SR] 150 mg tablet sustained-release 12 hr 150 mg PO DAILY Gemtesa 75 mg tablet 75 mg PO DAILY ropinirole 0.25 mg tablet 0.25 mg PO BID omeprazole 40 mg capsule,delayed release(DR/EC) 40 mg PO DAILY Patient Comments: TAKE 1 CAPSULE BY MOUTH DAILY albuterol sulfate 1 INHALER inhaler 1 - 2 puff INHALATION Q6H PRN PRN (Reason: Sob &/Or Wheezing) escitalopram oxalate 20 mg tablet 20 mg PO DAILY albuterol sulfate 2.5 mg/0.5 mL solution for nebulization 2.5 mg inhalation Q6H PRN (Reason: shortness of breath or wheezing) Patient Comments: use 1 (ONE) vial FOUR TIMES DAILY NEEDED loperamide 2 mg capsule 2 mg PO DAILY Patient Comments: TAKE 1 CAPSULE BY MOUTH ONCE DAILY Referrals / Follow Up: Toño Monzon MD [Primary Care Provider] - Disposition Disposition (needs filled in before D/C Order can be placed): Home, Self Care
--- NOTE | 2024-02-02 09:04 | PCM.POST.ANE ---
Anesthesia: Postop Eval I Current Vital Signs Temperature: 98.1 F Pulse Rate: 94 Blood Pressure: 99/70 Respiratory Rate: 16 Pulse Ox: 97 Oxygen Delivery Method: Room Air Assessment Airway patent: Yes Spontaneous unlabored respirations: Yes Mental status: Awake and Calm nausea: No Vomiting: No Anesthesia Complication: No Fluid Hydration Crystalloid volume administer (ml): 20 Total IV fluid infused: 20 Progress Note Anesthesia document: Postop Eval 1 completed: Yes
--- NOTE | 2024-02-02 11:44 | POSTOPAN2_ITS ---
Anesthesia Postop Eval I Sum Postop Eval Completion status Anesthesia document: Postop Eval 1 completed: Yes Anesthesia Postop Eval I Summary Anesthesia Postop Eval I Summary: Anesthesia Postop Eval I: Assessment Summary Airway patent Yes 02/02/24 09:11 A CLASS [email or web address] Spontaneous unlabored Yes 02/02/24 09:11 A CLASS [email or web address] respirations Mental status Awake,Calm 02/02/24 09:11 A CLASS [email or web address].GDOTT nausea No 02/02/24 09:11 A CLASS LINEMAN.GDOTT Vomiting No 02/02/24 09:11 A CLASS LINEMAN.GDOTT Anesthesia Postop Eval I: Fluid Summary Crystalloid volume administer 20 02/02/24 09:11 A CLASS [email or web address].GDOTT (ml) Colloids volume administered ( ml) Blood Product volume administered (ml) Total IV fluid infused 20 02/02/24 09:11 A CLASS [email or web address].GDOTT Anesthesia Postop Eval I: Summary Notes Anesthesia Complication No 02/02/24 09:11 A CLASS [email or web address].GDOTT Anesthesia Complication Comment: Post-operative progress note Anesthesia: Postop Eval II Evaluation Mental status: Awake and Calm Pain Level: 1 nausea: No Vomiting: No Complications Anesthesia Complication: No
--- NOTE | 2024-02-02 11:44 | PCM.POSTANE2 ---
Anesthesia Postop Eval I Sum Postop Eval Completion status Anesthesia document: Postop Eval 1 completed: Yes Anesthesia Postop Eval I Summary Anesthesia Postop Eval I Summary: Anesthesia Postop Eval I: Assessment Summary Airway patent Yes 02/02/24 09:11 JANITORIAL MANAGER.[email or web address] Spontaneous unlabored Yes 02/02/24 09:11 JANITORIAL MANAGER.GDOTT respirations Mental status Awake,Calm 02/02/24 09:11 JANITORIAL MANAGER.GDOTT nausea No 02/02/24 09:11 JANITORIAL MANAGER.GDOTT Vomiting No 02/02/24 09:11 JANITORIAL MANAGER.GDOTT Anesthesia Postop Eval I: Fluid Summary Crystalloid volume administer 20 02/02/24 09:11 JANITORIAL MANAGER.GDOTT (ml) Colloids volume administered ( ml) Blood Product volume administered (ml) Total IV fluid infused 20 02/02/24 09:11 JANITORIAL MANAGER.GDOTT Anesthesia Postop Eval I: Summary Notes Anesthesia Complication No 02/02/24 09:11 JANITORIAL MANAGER.GDOTT Anesthesia Complication Comment: Post-operative progress note Anesthesia: Postop Eval II Evaluation Mental status: Awake and Calm Pain Level: 1 nausea: No Vomiting: No Complications Anesthesia Complication: No
== END 2024-02-02 10:08 | disposition home or self-care (01) ==
LOC: SDC 06:40 → AC 06:46
PROVIDERS: PCP Family Medicine; Referring Provider Orthopaedic Surgery; Visit Provider Orthopaedic Surgery
PROC: (CPT 26055; principal; 2024-02-02 08:10)
DX: M65.331 Trigger finger, right middle finger (principal); Z87.891 Personal history of nicotine dependence; J45.909 Unspecified asthma, uncomplicated; K21.9 Gastro-esophageal reflux disease without esophagitis; M19.042 Primary osteoarthritis, left hand; Z79.899 Other long term (current) drug therapy; F41.9 Anxiety disorder, unspecified
CPT/HCPCS: 26055; 01810; J2405

== ENCOUNTER 2024-03-16 15:37 | Outpatient (RCR) | payer MEDICARE, OTHER, SELFPAY ==
--- NOTE | 2024-03-17 07:05 | HP.OTEVAL ---
Patient's Visit Information Visit Information Visit Information: ROHAN ROSALES is a 68 year old F, referred to Occupational Therapy by Dr. Lidia Hall MD, with a diagnosis of left primary osteoarthritis left hand. Date of Evaluation: 03/16/24 Occupational Therapist: Stephanie Hodge, MARY GRACE/Saul, CHT Subjective Subjective: This 68 year old female was seen for OT eval with dx of left Primary osteoarthritis left hand- pt states she had a nodule on left MF and would cause pain when she hit her finger- last 6 months she had pain all the time. pt is left handed and states limitation with ADLs and work tasks. Pt arrives with orthosis on- incision clean- pt 4 weeks and 2 days s/p left MF distal interphalangeal joint fusion. pt states she feels pain is much better and feels she is almost ready to return to work. ROM MP: left MF 0/65 PIP: left MF 0/90 DIP: left MF fusion ROM Comments: pt demo with good ROM following a left MF distal interphalangeal joint fusion Edema PIP: right MF 6.5 left 6.5 Sensation Sensation Comments: states tip of left MF slightly different from right not numb but sensation feels different Quick DASH-Disab of Arm,Shoulder& Hand Quick DASH Score: 46.6650 Goals Goal:Daily scar massage when approriate: Yes Goal:[employer] Worker/Pinch strength at least 75% of unaffected hand: Yes Comment: not to initiate until s/p week 6 Goal:No pain with affected hand use: Yes Goal:Full use of affected hand in daily activities including work: Yes Goal:Decrease scar hypersensitivity: Yes Rehabilitation General Assessment: pt arrives 4 weeks and 2 days s/p from a left middle finger distal interphalangeal joint fusion. pt demo good PIP and MCP ROM. Pt limited with strength and functional use of left dominate hand due to newly healing structures. Pt would benefit from skilled OT services 1xweek to ensure pts compliance with her ROM and when able transition pt to PRE. Today therapist re molded orthosis to allow for better fit as swelling has resolved. Therapist ed. pt as bone is healing around fusion she still needs to avoid lifting/ pushing or carry with left hand. Therapist advised she should wait to have x-ray at her follow up apt. with her to get cleared for her return to a job that requires lifting 100#. pt demo understanding and agreed to POC. Rehabilitation Potential: Good Anticipated Interventions Anticipated Interventions: A/AAROM/PROM, Desensitization, Sensory Retraining, Orthoses, Sensory Stimulation and Home Program Visit Plan Frequency: 1x/Week Duration: 4 Weeks General Plan: ed.pt on healing orthosis adj as needed initiate light use of left hand with orthosis on cont. with her ROM of PIP and MP ex. TEXT: Thank you for the opportunity to evaluate your patient. For Medicare and Medicare HMO plans, please review the plan of care and approve it. It will need to be FAXED BACK to us at [phone] for Medicare purposes. Please let me know if there are questions or concerns regarding this plan of care. Physician Signature: Date:
== END 2024-04-08 15:50 | disposition home or self-care (01) ==
LOC: OT 15:37
PROVIDERS: PCP Family Medicine; Referring Provider Orthopaedic Surgery Hand Surgery; Visit Provider Orthopaedic Surgery Hand Surgery
DX: M19.042 Primary osteoarthritis, left hand (principal)
CPT/HCPCS: 97166

== ENCOUNTER 2024-05-19 17:00 | Outpatient (RCR) | payer MEDICARE, OTHER, SELFPAY ==
--- NOTE | 2024-04-20 07:11 | HP.PTEVAL_ITS ---
Patient's Visit Information Visit Information Visit Information: ROHAN ROSALES is a 68 year old F referred to Physical Therapy by Dr. Tim Swanson MD with a diagnosis of Neck pain. Date of Evaluation: 04/19/24 Physical Therapist: Ray Alexander, PT, ATC Visit Plan Frequency: 2-3x /Week Duration: 4-6 Weeks Plan: Poswtural edu, DTR to scalenes/suboccip/paraspinals, US, scap stab ex's, and HEP Subjective Subjective: Pt reports she has had neck pain for over one ye3ar. Pt notes she had a spinal fusion surgery at that time. Pt reports she was never ordered PT after that surgery and her pain has progressively [id number] over this span. Pt notes her pain will become so severe at times that it paralyzes her. Pt notes sleep difficulty secondary to pain. Pt works for a [employer] which requires her to perform a lot of lifting activity. Pt notes she has intermittent pain in her L UE that occurs at various times, like when she drives. Pt is L hand dominant. Pt reports she is limited with most outside duties right now secondary to pain. Pt notes the pain is located on the posterior aspect of her neck and radiates to the bafck of her head. Pt notes she has a BAR all the time. 5/10 pain at rest, 10/10 at worst Pain Neck pain: Pain Intensity (Out of 10): 5 Pain Intensity Range: 10 Objective Objective: Neuro: B UE sensation is WNL to light touch. B bicipital reflex= 2/3 MMT: B UE's are equal bilaterally ROM: c/s flex and protraction is minimally limited. All other motions are significantly limited at this time Palpation: Pt has significant muscle guarding throughout neck Balance/Special Test Scores Oswestry Neck Score: 16 Goals Goal 1:: Decrease neck pain x 50% to aid with sleep Goal Time Frame: 4-6 Weeks Goal 2:: Increase cervical spine ROM x 1 grade in all planes to aid with driving Goal Time Frame: 4-6 Weeks Goal 3:: I with HEP Goal Time Frame: 4-6 Weeks Goal 4:: Decrease Frequency of BAR's x 50% to aid with IADL's Goal Time Frame: 4-6 Weeks Rehabilitation Potential Physical Therapy Diagnosis: Pt has neck pain, limited cervical spine ROM, and difficulty with sleep secondary to pain Rehabilitation Potential: Good Anticipated Interventions Patient/Client Instruction: Educate patient on: Condition and Plan of Care For the Purpose of:: To improve self management Therapeutic Exercise to Include: Strength training, Body mechanics, Postural training, Active ROM and Scapular Strength/Stabilization For the Purpose of:: To decrease pain, To increase ROM and To improve muscle performance and motor function Ultrasound (thermal/non thermal): Yes For the Purpose of:: To decrease pain Text: Thank you for the opportunity to evaluate your patient. For Medicare and Medicare HMO plans, please review the plan of care and approve it. It will need to be FAXED BACK to us at [phone] for Medicare purposes. For Medicare only, by signing this I certify the plan of care. Please let me know if there are questions or concerns regarding this plan of care. Physician Signature: Date:
--- NOTE | 2024-05-19 18:13 | HP.PTDCSUM ---
Discharge Summary D/C summary: It has been my pleasure to treat ROHAN ROSALES referred by Dr. Tim Swanson MD, with the diagnosis of Neck pain for a total of 8 visit(s). Discharge Date: Please see the following information for a summary of their discharge status. Subjective Subjective: Pt reports pain really hasnt changed yet. Minor increase in ROM Pain Neck pain: Pain Intensity (Out of 10): 6 Overall Improvement % Improvement: 10 Objective Objective/Function: Neck pain ranges from 6-10/10 No change in BAR's at this time Pt is I with HEP C/S ROM is showing minimal progress Goals Goal 1:: Decrease neck pain x 50% to aid with sleep Goal Progress: Not Progressing Goal 2:: Increase cervical spine ROM x 1 grade in all planes to aid with driving Goal Progress: Progressing Goal 3:: I with HEP Goal Progress: Goal Met Goal 4:: Decrease Frequency of BAR's x 50% to aid with IADL's Goal Progress: Not Progressing Plan Plan: Discontinue PT at this time secondary to lack of progress. RTD D/C Information d/c sentence: If there are questions or concerns regarding this patient's physical therapy, please feel free to call me at [phone]. Thank you for the referral of this patient. Sincerely, Ray Alexander, PT, ATC Balance/Gait/Functional tests Balance/Special Test Scores Oswestry Neck Score: 17 Improvement % Improvement: 10
== END 2024-05-19 19:00 | disposition home or self-care (01) ==
LOC: PT 17:00
PROVIDERS: PCP Family Medicine; Referring Provider Anesthesiology Pain Medicine; Visit Provider Anesthesiology Pain Medicine
DX: M47.812 Spondylosis without myelopathy or radiculopathy, cervical region (principal); M50.30 Other cervical disc degeneration, unspecified cervical region
CPT/HCPCS: 97035; 97110; 97140; 97161; 97530

== ENCOUNTER → 2024-05-30 | Outpatient (CLI) | payer MEDICARE, OTHER, SELFPAY ==
--- NOTE | 2024-05-30 15:53 | RAD_ITS ---
PROCEDURE: Left elbow radiographs, three views REASON FOR EXAM: Left elbow swelling, pain over left medial condyle TECHNIQUE: Three views of the left elbow were obtained. COMPARISON: None. FINDINGS: Three views of the left elbow were obtained. No acute fracture or dislocation of the left elbow. Mild degenerative changes of the ulnar trochlear joint. No abnormally elevated fat pads. RAD/Elbow min 3 Views IMPRESSION: No acute bony abnormality of the left elbow. No sizeable joint effusion. If there is persistent pain or clinical concern, short-term follow-up MRI evalu ation may be helpful. Reading Location: [facility]
== END | disposition home or self-care (01) ==
LOC: MTRAD 15:51
PROVIDERS: PCP Family Medicine; Referring Provider Family Medicine; Visit Provider Family Medicine
DX: M70.32 Other bursitis of elbow, left elbow (principal)
CPT/HCPCS: 73080

== ENCOUNTER → 2024-06-06 | Outpatient (CLI) | payer MEDICARE, OTHER, SELFPAY ==
[2024-06-06 17:32] LABS: Anion Gap 6 (5-15); BUN 26 mg/dL (7-18); BUN/Creat Ratio 24.5 RATIO (10-20); Calcium,Total 9.3 mg/dL (8.5-10.1); Chloride 105 mmol/L (98-107); Creatinine, Serum 1.06 mg/dL (0.55-1.02); EST Glomerular Filtration Rate 55 mL/min (>60); Est Glom Filt Rate - Afr Amer 66 mL/min (>60); Glucose 101 mg/dL (74-106); Potassium 4.1 mmol/L (3.5-5.1); Sodium Level 139 mmol/L (136-145)
== END | disposition home or self-care (01) ==
LOC: LAB 16:35
PROVIDERS: PCP Family Medicine; Referring Provider Anesthesiology Pain Medicine; Visit Provider Anesthesiology Pain Medicine
DX: Z01.812 Encounter for preprocedural laboratory examination (principal)
CPT/HCPCS: 36415; 80048

== ENCOUNTER → 2024-06-14 | Outpatient (CLI) | payer MEDICARE, OTHER, SELFPAY ==
--- NOTE | 2024-06-14 16:19 | MRI_ITS ---
PROCEDURE: SPINE CERVICAL W/WO CONTRAST REASON FOR EXAM: Neck pain TECHNIQUE: Cervical spine MRI without and with intravenous gadolinium-based contrast. CONTRAST: COMPARISON: Cervical spine radiograph 09/16/2023 FINDINGS: Vertebrae: Cervical vertebral body heights are preserved. Bone marrow signal is unremarkable. Alignment: Mild reversal of the cervical lordosis. Postoperative changes C5-C7 ACDF. Spinal Cord: Cervical spinal cord is of normal size and signal intensities. Structures at the foramen magnum are unremarkable. C2-3: Vwame-zfzbzvb-rmtp-left facet degenerative changes. No significant canal stenosis or neural foraminal narrowing. C3-4: Qkit-ahymlso-smwk-right facet degenerative changes and mild uncinate hypertrophy. No canal stenosis or neural foraminal narrowing. C4-5: Fwnb-zxxkfyf-eqzo-right facet degenerative changes, left adrenal uncinate hypertrophy. No significant disc osteophyte complex. No significant canal stenosis. Severe left and mild right neural foraminal narrowing. C5-6: Small disc osteophyte complex, right greater than left uncinate hypertrophy and facet degenerative changes with mild canal stenosis. Severe right and mild left neural foraminal narrowing. C6-7: Disc osteophyte complex, uncinate hypertrophy greater on the right and facet degenerative changes, also greater on the right with mild canal stenosis. Severe right and mild left neural foraminal narrowing. C7-T1: Unremarkable Postcontrast images: No suspicious contrast enhancement. MRI/Spine Cervical W/WO Contrast IMPRESSION: Postoperative changes C5-C7 ACDF. Multilevel degenerative changes, most prominent between C5-C6 and C6-C7 with up to mild canal stenosis and severe neural foraminal narrowing. No suspicious parenchymal or leptomeningeal enhancement. Reading Location: [facility]
== END | disposition home or self-care (01) ==
LOC: MRI 16:17
PROVIDERS: PCP Family Medicine; Referring Provider Anesthesiology Pain Medicine; Visit Provider Anesthesiology Pain Medicine
DX: M96.1 Postlaminectomy syndrome, not elsewhere classified (principal)
CPT/HCPCS: 72156; A9575

== ENCOUNTER → 2024-08-26 | Outpatient (CLI) | payer MEDICARE, OTHER, SELFPAY ==
--- NOTE | 2024-08-26 15:52 | CT_ITS ---
PROCEDURE: SPINE CERVICAL WITHOUT CONTRAS 08/26/2024 REASON FOR EXAM: CERVICAL ARTHRITIS TECHNIQUE: Cervical spine CT without contrast. Coronal and Sagittal reconstruction series were provided. One or more dose reduction techniques were used (e.g., Automated exposure control, adjustment of the mA and/or kV according to patient size, use of iterative reconstruction technique RADIATION DOSE SUMMARY: CTDlvol: 14.13 mGy DLP: 221.95 mGycm COMPARISON: C-spine x-ray 08/12/2024. C-spine MRI 06/14/2024 FINDINGS: Alignment: The cervical segment is straightened, similar to the prior examinations. There is mild grade 1 anterolisthesis of C3 on C4. Vertebrae: Anterior interbody fusion has been performed from C5 through C7. An anterior fixation plate is held in place by 6 screws. The upper left screw appears to be fractured. No other hardware fractures are identified. Mild axial compression of the C5 vertebral body is similar to the prior examinations. The remainder of the cervical vertebral bodies are normal in height. Soft Tissues: The prevertebral soft tissues are normal in thickness. C1-2: The atlantoaxial relation is normal. C2-3: There is severe right facet joint arthropathy and mild right uncovertebral joint hypertrophy, causing moderate right neural foraminal stenosis. The left neural foramen is patent. The left facet joint is within normal limits. C3-4: Facet joint arthropathy is severe on the left and mild on the right. There is bilateral uncovertebral joint hypertrophy. Neural foraminal stenosis is severe on the left and mild on the right. C4-5: Facet joint arthropathy is moderate on the left. Uncovertebral joint hypertrophy coupled with the facet hypertrophy causes moderate left neural foraminal stenosis. The right facet joint is normal. Uncovertebral joint hypertrophy causes mild right neural foraminal stenosis. C5-6: Facet joint arthropathy is mild bilaterally. Uncovertebral joint hypertrophy coupled with the facet hypertrophy causes severe right and mild left neural foraminal stenosis. C6-7: Mild bilateral neural foraminal stenosis and bilateral uncovertebral joint hypertrophy cause moderate right and mild left neural foraminal stenosis. C7-T1: Mild bilateral facet joint arthropathy. The neural foramina are patent bilaterally. CT/Spine Cervical without Contras IMPRESSION: Anterior interbody fusion from C5 through C7 is very similar to the prior exami nation. There is no significant interval change. The superior left screw appears to be fractured. No other hardware fractures a re identified. Uncovertebral joint hypertrophy and facet joint hypertrophy cause neural forami nal stenosis, most severe (severe) on the left at C3-C4 and on the right at C5-C6. Facet joint arthropathy as detailed above, most severe (severe) on the right at C2-C3 and on the left at C3-C4. Neural foraminal stenosis as detailed above, most severe (severe) on the left a t C3-4 and on the right at C5-C6. Straightening of the cervical segment may be positional or due to spasm. Mild grade 1 anterolisthesis of C3 on C4 is similar to the prior plain film. Mild axial compression of the C5 vertebral body is similar to the prior examina tions. Reading Location: [facility]
== END | disposition home or self-care (01) ==
PROVIDERS: PCP Family Medicine; Referring Provider Orthopaedic Surgery Orthopaedic Surgery of the Spine; Visit Provider Orthopaedic Surgery Orthopaedic Surgery of the Spine
DX: M47.812 Spondylosis without myelopathy or radiculopathy, cervical region (principal)
CPT/HCPCS: 72125

== ENCOUNTER → 2024-08-30 | Outpatient (CLI) | payer MEDICARE, OTHER, SELFPAY ==
[2024-08-30 18:35] LABS: ALB/GLOB Ratio 1.5 RATIO (0.9-2.4); AST(SGOT) 20 U/L (<=31); Alanine Aminotransfer ALT/SGPT 14 U/L (<=34); Albumin, Serum 4.2 g/dL (3.4-4.8); Alkaline Phosphatase 71 U/L (35-104); Anion Gap 11 (5-15); BUN 19 mg/dL (4-19); BUN/Creat Ratio 19.2 RATIO (10-20); Calcium,Total 9.3 mg/dL (7.6-11.0); Carbon Dioxide 22.7 mmol/L (21.0-32.0); Chloride 105 mmol/L (98-108); Creatinine, Serum 0.98 mg/dL (0.70-1.20); EST Glomerular Filtration Rate 63 (>60); Ferritin 14 ng/mL (22-378); Globulin 2.8 g/dL (2.2-4.2); Glucose 98 mg/dL (70-99); Potassium 4.1 mmol/L (3.3-5.1); Sodium Level 138 mmol/L (133-145); Total Bilirubin 0.36 mg/dL (0.00-1.30); Vitamin B12 552 pg/mL (180-914)
[2024-08-30 18:55] LABS: CRP < 3.00 mg/L (0.0-3.0); Iron 43 ug/dL (50-170)
[2024-08-30 19:25] LABS: Absolute Lymphocyte Count 1.82 X10^3/uL (0.83-4.51); Absolute Neutrophil Count 3.7 X10^3/uL (2.0-7.7); Basophil# 0.04 X10^3/uL; Basophil% 0.6 % (0-1); Eosinophil# 0.47 X10^3/uL; Eosinophils% 7.1 % (0-5); Hematocrit 32.6 % (37-47); Hemoglobin 10.8 g/dL (12.0-15.0); Lymphocyte # 1.82 X10^3/ul (0.83-4.51); Lymphocyte % 27.7 % (19-41); Mean Corp Hgb Conc 33.1 g/dL (32-36); Mean Corpuscular Hgb 28.3 pg (27.0-32.0); Mean Corpuscular Volume 85.6 fL (81-99); Mean Platelet Vol. 11.1 fl (6.2-12.0); Monocyte# 0.57 X10^3/uL; Monocyte% 8.7 % (0-10); NRBC Flagged by Analyzer 0 % (0-5); Neutrophil # 3.66 X10^3/uL (2.7-7.7); Neutrophil % 55.6 % (47-70); Platelet Count 220 K/mm3 (150-450); RBC Distribution Width CV 12.7 % (11.6-14.6); RBC Distribution Width SD 39.5 fl (35.1-43.9); Red Blood Count 3.81 M/mm3 (4.2-5.4); White Blood Count 6.6 K/mm3 (4.4-11.0)
[2024-08-30 19:32] LABS: Erythrocyte Sedimentation Rate 10 mm/hr (0-30)
[2024-09-01 11:08] LABS: ANTINUCLEAR ANTIBODIES DIRECT Negative (Negative)
[2024-09-01 15:08] LABS: PROEL- A/G Ratio 1.2 (0.7-1.7); PROEL- Albumin 3.6 g/dL (2.9-4.4); PROEL- Alpha-1 Globulin 0.3 g/dL (0.0-0.4); PROEL- Alpha-2 Globulin 0.7 g/dL (0.4-1.0); PROEL- Beta Globulin 1.1 g/dL (0.7-1.3); PROEL- Gamma Globulin 0.8 g/dL (0.4-1.8); PROEL- Globulin, Total 2.9 g/dL (2.2-3.9); PROEL- TOTAL PROTEIN 6.5 g/dL (6.0-8.5); PROEL-M-Spike Not Observed g/dL (Not Observed)
== END | disposition home or self-care (01) ==
LOC: MFPLAB 16:29
PROVIDERS: PCP Family Medicine; Referring Provider Family Medicine; Visit Provider Family Medicine
DX: G62.9 Polyneuropathy, unspecified (principal)
CPT/HCPCS: 36415; 80053; 82607; 82728; 82746; 83540; 84165; 84443; 85025; 85652; 86038; 86140

== ENCOUNTER → 2024-09-30 | Outpatient (CLI) | payer MEDICARE, OTHER, SELFPAY ==
--- NOTE | 2024-09-30 16:20 | MRI_ITS ---
PROCEDURE: BRAIN W/WO CONTRAST 09/30/2024 REASON FOR EXAM: ATAXIA, NON TRAUMATIC, STROKE EXCLUDED, GAIT INSTABILITY TECHNIQUE: BRAIN W/WO CONTRAST Multiplanar and multisequence images were obtained. CONTRAST: VOLUME: mL COMPARISON: 12-11-2022 FINDINGS: No acute or hyperacute infarcts. No intracerebral or extra-axial hematomas. No obvious enhancing masses. Bilateral cerebral periventricular and subcortical as well as basal ganglia and pontine foci and patches of high T2/FLAIR WI signal. Normal MRI signal of the cerebellar hemispheres and rest of the brain stem. Dilated ventricular system, cortical sulci and extra-axial CSF spaces. No shift of midline structures. Normal MRI appearance of the petrous temporal bones cerebellopontine angles with no definite masses. Normal MRI appearance of orbital structures, both globes, optic nerves, optic chiasm, optic tracts and optic radiations. Scanned paranasal sinuses are unremarkable. MRI/Brain W/WO Contrast IMPRESSION: No acute infarcts. No intracerebral or extra-axial hematomas. No enhancing mass es. Bilateral cerebral and pontine microvascular ischemic changes. Stable Age appropriate brain involutional changes. Stable Reading Location[facility]
== END | disposition home or self-care (01) ==
LOC: MRI 16:18
PROVIDERS: PCP Family Medicine; Referring Provider Family Medicine; Visit Provider Family Medicine
DX: R26.81 Unsteadiness on feet (principal)
CPT/HCPCS: 70553; A9575

== ENCOUNTER → 2024-11-29 | Outpatient (CLI) | payer MEDICARE, OTHER, SELFPAY ==
--- NOTE | 2024-11-29 15:33 | MRI_ITS ---
PROCEDURE: SPINE THORACIC (ROUTINE) 11/29/2024 REASON FOR EXAM: STENOSIS TECHNIQUE: SPINE THORACIC (ROUTINE) Multiplanar and multisequence images were obtained. CONTRAST: None COMPARISON: None FINDINGS: Vertebrae: No fracture. Mild disc space narrowing, marginal endplate spurring throughout the spine. Alignment: Mild straightening of the thoracic kyphosis. No spondylolisthesis. Spinal Cord: Normal signal. No spinal stenosis. No exit foraminal narrowing. MRI/Spine Thoracic (Routine) IMPRESSION: No spinal stenosis. Mild degenerative change. Mild straightening of the thora cic kyphosis. Consider spasm. Reading Location: [id number]
--- NOTE | 2024-11-29 15:33 | MRI_ITS ---
PROCEDURE: SPINE CERVICAL (ROUTINE) 11/29/2024 REASON FOR EXAM: STENOSIS TECHNIQUE: SPINE CERVICAL (ROUTINE) Multiplanar and multisequence images were obtained without IV contrast administration. COMPARISON: CT cervical spine 08/26/2024. FINDINGS: Vertebrae: Cervical vertebral body heights are preserved. Bone marrow signal is unremarkable. Alignment: Normal. No spondylolisthesis. Spinal Cord: Cervical spinal cord is of normal size and signal intensities. Structures at the foramen magnum are unremarkable. C2-3: Facet joint arthropathy. Moderate left and severe right foramina stenosis. No canal stenosis. C3-4: Left facet joint effusion. Mild bilateral foramina stenosis. No canal stenosis. C4-5: Left facet effusion. Uncovertebral hypertrophy. Severe left and mild right foramina stenosis. No significant canal stenosis. C5-6: Status post ACDF. Uncovertebral hypertrophy. Facet joint arthropathy. Severe bilateral foramina stenosis. Mild canal stenosis. C6-7: Status post ACDF. Uncovertebral hypertrophy. Facet joint arthropathy. Severe bilateral foramina stenosis. Mild canal stenosis. C7-T1: Unremarkable MRI/Spine Cervical (Routine) IMPRESSION: Status post ACDF C5-C6 and C6-C7. Multilevel foramina stenoses. Severe left foramina stenosis at C4-C5. Severe bilateral foramina stenosis at C5-C6. Severe bilateral foramina stenosis at C6-C7. No significant canal stenosis. Reading Location: [facility]
== END | disposition home or self-care (01) ==
PROVIDERS: PCP Family Medicine; Referring Provider Physician Assistant Medical; Visit Provider Physician Assistant Medical
DX: M48.02 Spinal stenosis, cervical region (principal); R29.2 Abnormal reflex
CPT/HCPCS: 72141; 72146

== ENCOUNTER → 2025-01-19 | Outpatient (CLI) | payer MEDICARE, OTHER, SELFPAY ==
--- NOTE | 2025-01-19 15:12 | RAD_ITS ---
PROCEDURE: HIP, UNI W/ PELVIS 2-3 VIEWS 01/19/2025 REASON FOR EXAM: LEFT HIP PAIN TECHNIQUE: Procedure Code: RADHP Modality: DX Procedure: HIP, UNI W/ PELVIS 2-3 VIEWS Laterality: Left COMPARISON: Left hip and pelvis study of 01/06/2024. RAD/HIP, UNI W/ Pelvis 2-3 Views IMPRESSION: Stable degenerative changes and postsurgical changes of the visualized lower hitesh mbar spine. Mild sacroiliac joint degenerative changes are noted, [id number]. Limited imaging of the right hip shows only very minimal degenerative changes. The left hip joint shows at least mild degenerative changes, somewhat progresse d since the prior study of 1 year prior. No definite joint space narrowing is seen. No evidence of femoral head osteonecrosis. No acute fracture or dislocation is evident. Reading Location: [place] [id number]
[2025-01-19 18:39] LABS: Prothrombin Time (Protime)PT. 12.8 SECONDS (11.7-14.9)
[2025-01-19 18:40] LABS: Partial Thromboplast Time 28.3 Seconds (24.1-36.2)
[2025-01-19 18:50] LABS: Hematocrit 32.7 % (37-47); Hemoglobin 10.9 g/dL (12.0-15.0); Mean Corp Hgb Conc 33.3 g/dL (32-36); Mean Corpuscular Volume 86.5 fL (81-99); Mean Platelet Vol. 11.7 fl (6.2-12.0); Platelet Count 221 K/mm3 (150-450); RBC Distribution Width CV 12.3 % (11.6-14.6); RBC Distribution Width SD 38.9 fl (35.1-43.9); Red Blood Count 3.78 M/mm3 (4.2-5.4); White Blood Count 5.7 K/mm3 (4.4-11.0)
[2025-01-19 18:57] LABS: Ferritin 48 ng/mL (22-378); Iron 42 ug/dL (50-170)
== END | disposition home or self-care (01) ==
LOC: MTLAB 15:02
PROVIDERS: PCP Family Medicine; Referring Provider Family Medicine; Visit Provider Family Medicine
DX: Z01.818 Encounter for other preprocedural examination (principal); D64.9 Anemia, unspecified; M16.12 Unilateral primary osteoarthritis, left hip
CPT/HCPCS: 36415; 73502; 82728; 83540; 85027; 85610; 85730

== ENCOUNTER 2025-02-13 15:59 | Inpatient (IN) | payer MEDICARE, OTHER, SELFPAY ==
--- NOTE | 2025-01-30 13:55 | PAT.ANE_ITS ---
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 When Was Last Pacemaker Check QUESTION #4 FULL TEXT: You/Your Family Experience fever (hyperthermia) with Anesthesia Last Oral Intake Last Oral intake: Last Oral Intake NPO since Meds taken in AM with sips of water? Meds patient instructed to take am of surgery PONV PONV - inspector wire rope: PONV - inspector wire rope Female Yes 01/30/25 13:11 HX of Motion Sickness Yes 01/30/25 13:11 HX of N/V After Surgery No 01/30/25 13:11 Non-Smoker Yes 01/30/25 13:11 Duration of Surgery greater Yes 01/30/25 13:11 than 60 minutes Number of Risk Factors 4 01/30/25 13:11 PONV Score Severe Risk 01/30/25 13:11 Height & Weight Height & Weight: Anesthesia: Height & Weight Height 5 ft 7 in 12/28/24 10:33 Respiratory Assessment Respiratory Assessment - inspector wire rope: Respiratory Tract Infection Hx - inspector wire rope Hx Respiratory Tract Infection No 01/30/25 13:11 STOP Sleep Apnea STOP Sleep Apnea - inspector wire rope: STOP Sleep Apnea - inspector wire rope Hx Hypertension No 01/30/25 13:11 Hx Sleep Apnea Yes: NO MACHINE USED AT THIS 01/30/25 13:11 TIME CPAP No 01/30/25 13:11 BIPAP No 01/30/25 13:11 Do you snore loudly (louder than talking or can be heard Do you often feel tired/ fatigued/ sleepy during daytime? Has anyone observed you stop breathing during sleep? STOP Results Positive 01/30/25 13:11 QUESTION #5 FULL TEXT : Do you snore loudly (louder than talking or can be heard through closed doors)? 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 Specify any problems Hx of Preganancy in last 3 No 01/30/25 13:11 Months Nurse Filling Out Transfusion VCHRISTIN 01/30/25 13:11 & Questions: Date: 01/30/25 01/30/25 13:11 Time: 13:13 01/30/25 13:11 Patient unable to answer at this time (ie. confused, unrespo /Reproduction History /Reproductive History - inspector wire rope: /Reproductive Hx- inspector wire rope Hx Now No 01/30/25 13:11 Gestational Age (in weeks): EDC: Hx Hx Para Hx Section SAB No 01/30/25 13:11 PFSH Medical History Cardiology follow-up encounter Post-menopausal Anxiety Alcohol use History of steroid therapy Arthritis Bladder disease Low iron Back pain Headache Injury of head and neck History of ulceration History of IBS Shortness of breath on exertion Leg cramps History of echocardiogram History of stress test Osteoarthritis of left knee Spinal stenosis at L4-L5 level Wears glasses GERD (gastroesophageal reflux disease) Former smoker Asthma Chest pain, unspecified Chronic back pain Obesity (BMI 30.0-34.9) Asthma Restless leg syndrome Depression Home Medications Medication Instructions Recorded Last Taken Type albuterol sulfate 90 mcg/actuation 1 - 2 puff inhalati on Q6H PRN PRN 12/29/16 09/25/20 04:30 History aerosol inhaler Sob &/Or Wheezing 1 - 2 PUF F escitalopram oxalate 20 mg tablet 20 mg PO DAILY DEPRE SSION 11/21/20 02/01/24 History omeprazole 40 mg capsule,delayed 40 mg PO DAILY GERD 0 11/21/20 02/01/24 History release bupropion HCl 150 mg tablet,12 hr 150 mg PO DAILY 04/1402/01/24 History sustained-release (Wellbutrin SR) albuterol sulfate 2.5 mg/0.5 mL 2.5 mg inhalation Q6H PRN 01/20/23 Unknown History solution for nebulization shortness of breath or wheez ing loperamide 2 mg capsule 2 mg PO DAILY 01/20/2301/31 History tizanidine 4 mg tablet 4 mg PO TID PRN muscle spasm 08/12/24 Unknown History Allergy/AdvReac Type Severity Reaction Status Date / Time aripiprazole (From Abilify) Allergy Mild rash Verified 01/30/25 13:01 codeine Allergy Rash Verified 01/30/25 13:01 meperidine HCl (From Demerol) Allergy Rash Verified 01/30/25 13:01 oxycodone HCl (From Percocet) Allergy Rash Verified 01/30/25 13:01 Family History Mother Heart disease Breast cancer Father Cancer Pancreatic Cancer Surgical History (Updated 01/30/25 @ 13:09 by Katelynn Morales) Hx of surgical procedure History of fusion of cervical spine History of cardiac catheterization History of lumbar fusion History of elbow surgery S/P colonoscopy History of esophagogastroduodenoscopy Status post arthroscopic knee surgery S/P appendectomy History of back surgery Social History Smoking Status: Former smoker alcohol intake: current alcohol intake frequency: holidays/special occasions only substance use type: marijuana what type of physical activity do you participate in: walking seatbelt use: always do you feel safe at home: Yes additional social history: single Patient works for [employer] Audit: Pertinent Findings Pertinent Findings EKG Perinent findings: 01/21/2023. Normal sinus rhythm 69 bpm. Consult pertinent findings: Cardiology 03/24/2017. History of chest pain. Resolved. Normal coronary arteries per cardiology. Recommendation Anesthesia Recommendation Anesthesia recommendation: OPTIMIZED for anesthesia
[2025-02-01 16:50] LABS: Hematocrit 32.8 % (37-47); Hemoglobin 11.1 g/dL (12.0-15.0); Immature Granulocytes Count 0.020 X10^3/uL (0.0-0.0); Mean Corp Hgb Conc 33.8 g/dL (32-36); Mean Corpuscular Volume 87.0 fL (81-99); Mean Platelet Vol. 10.5 fl (6.2-12.0); NRBC Flagged by Analyzer 0 % (0-5); Platelet Count 255 K/mm3 (150-450); RBC Distribution Width CV 12.4 % (11.6-14.6); RBC Distribution Width SD 39.5 fl (35.1-43.9); Red Blood Count 3.77 M/mm3 (4.2-5.4); White Blood Count 6.3 K/mm3 (4.4-11.0)
[2025-02-01 17:20] LABS: Anion Gap 9 (5-15); BUN 20 mg/dL (4-19); BUN/Creat Ratio 17.6 RATIO (10-20); Calcium,Total 9.2 mg/dL (7.6-11.0); Carbon Dioxide 25.8 mmol/L (21.0-32.0); Chloride 104 mmol/L (98-108); Glucose 86 mg/dL (70-99); Magnesium 2.1 mg/dL (1.5-2.2); Potassium 4.3 mmol/L (3.3-5.1)
[2025-02-13] VITALS (16 sets, daily range): BP systolic 120–215; BP diastolic 63–124; PULSE 71–122; RESP 16–20; TEMP 36.2–36.8; O2SAT 91–100; BMI 25.9; BMI 27.1
--- NOTE | 2025-02-13 12:24 | PCM.HP.BLA ---
History and Physical Date of Admission: 02/13/25 MR#: [id number] Acct: [id number] Name: ROHAN ROSALES Rep #: [id number] : 1955 Provider: Dr. Salazar Cervantes MD Age/Sex: 69/F Location: [facility] [place] [facility] Status: Signed Intake Vital Signs 12/28/2509:33 02/10/2511:44 Height 5 ft 7 in 5 ft 7 in Weight: 168 lb BMI 26.3 Intake Visit Reasons: pre op Chief Complaint: Cervical spine pre op Accompanied by: Self Is patient in pain?: Yes Pain scale (1-10): 7 Allergies aripiprazole (From Abilify) Allergy (Mild, Verified 02/10/25 11:46) rash codeine Allergy (Verified 02/10/25 11:46) Rash meperidine HCl (From Demerol) Allergy (Verified 02/10/25 11:46) Rash oxycodone HCl (From Percocet) Allergy (Verified 02/10/25 11:46) Rash Medications Medication Instructions Recorded Confirmed Type albuterol sulfate 90 mcg/actuation 1 - 2 puff inhalation Q6H PRN PRN 12/29/16 02/10/25 History aerosol inhaler Sob &/Or Wheezing escitalopram oxalate 20 mg tablet 20 mg PO DAILY DEPRESSION 11/21/20 02/10/25 History omeprazole 40 mg capsule,delayed 40 mg PO DAILY GERD 11/21/20 02/10/25 History release bupropion HCl 150 mg tablet,12 hr 150 mg PO DAILY 05/02/21 02/10/25 History sustained-release (Wellbutrin SR) albuterol sulfate 2.5 mg/0.5 mL 2.5 mg inhalation Q6H PRN 01/20/23 02/10/25 History solution for nebulization shortness of breath or wheezing loperamide 2 mg capsule 2 mg PO DAILY 01/20/23 02/10/25 History tizanidine 4 mg tablet 4 mg PO TID PRN muscle spasm 08/12/24 02/10/25 History Have you fallen in the past year?: No PFSH Medical History Cardiology follow-up encounter Post-menopausal Anxiety Alcohol use History of steroid therapy Arthritis Bladder disease Low iron Back pain Headache Injury of head and neck History of ulceration History of IBS Shortness of breath on exertion Leg cramps History of echocardiogram History of stress test Osteoarthritis of left knee Spinal stenosis at L4-L5 level Wears glasses GERD (gastroesophageal reflux disease) Former smoker Asthma Chest pain, unspecified Chronic back pain Obesity (BMI 30.0-34.9) Asthma Restless leg syndrome Depression Surgical History Hx of surgical procedure History of fusion of cervical spine History of cardiac catheterization History of lumbar fusion History of elbow surgery S/P colonoscopy History of esophagogastroduodenoscopy Status post arthroscopic knee surgery S/P appendectomy History of back surgery Family History Mother Heart disease Breast cancer Father Cancer Pancreatic Cancer Social History Smoking Status: Former smoker alcohol intake: current alcohol intake frequency: holidays/special occasions only substance use type: marijuana what type of physical activity do you participate in: walking seatbelt use: always do you feel safe at home: Yes additional social history: single Patient works for [employer] HPI pre op Details: This documentation accurately reflects the service provided and the decisions made by me, Dr. Salazar Cervantes MD 02/10/25 1144. Part of today’s visit was documented by Khushi Ramirez MA, acting as scribe. ROHAN ROSALES is a 69 year old F here today for pre op visit for C5-7 posterior instrumented fusion scheduled on 02-13-25. Patient states that her pain is a 7 today. Last time she was here she got her bag of soap and the pre surgery drinks. The patient is a 69-year-old female presenting for surgical consultation regarding cervical spine instability and associated symptoms. The cervical spine instability is due to incomplete fusion of previously operated segments, necessitating additional fixation points to achieve solid fusion. The surgical plan involves minimally invasive techniques to place implants and improve stability. The patient reports significant limitation in cervical range of motion, with difficulty looking up or sideways, attributed to stiffness and possible deformity. Physical therapy is anticipated to improve this condition post-surgery, although some limitations may persist due to chronic stiffness. The patient experiences post-surgical pain, previously managed with medications such as Toradol and cadr-ksr-hlcdgrl analgesics like Advil and Tylenol. She reports using moist heat and muscle relaxants at night to alleviate symptoms. - Musculoskeletal: Reports significant limitation in cervical range of motion, difficulty looking up or sideways. - Neurological: Denies any new neurological deficits. Attestation: Documentation on this patient encounter was supported using ambient scribe technology/ voice AI technology. The patient consented to recording for the purpose of documenting the encounter. Provider reviewed content of the generated note prior to signature. 12/29/24: ROHAN ROSALES is a 69 year old F here today for CT review. She did see the neurologist who ordered an MRI of her cervical and thoracic spine. She also had a brain MRI that was ordered by her PCP. She states that the neurologist said that her exaggerated reflexes are normal for her as her other reflexes tested out normal. Regarding the balance issues her neurologist is unsure but thinks it is from the surgeries that she had had on her spine. She reports an increase in pain with ROM. She reports numbness and tingling into her left arm. Ortho Exam General General: Yes no acute distress Neurologic: Yes alert and Yes oriented x3 Psychologic: Yes reasonable and appropriate Spine SPINE TESTING CERVICAL THORACIC LUMBAR Musculoskeletal Strength 0=absent - 5=normal Details: Examination neck shows right side ACDF incision scar. Patient has forward stooping posture. Mild paraspinal tenderness noticed worse in the left than the right. Patient has severe stiffness with inability to extend and look up to the ceiling. Neurologic motion of upper extremity shows 5 x 5 power level shows normal sensations in all dermatomes. Owen's positive bilaterally. Romberg's is positive. Tandem gait shows severe imbalance. There is hyperreflexia lower extremities. Coding Level of Care Code Off vis,est,level 4 Diagnoses Pseudoarthrosis of cervical spine, initial encounter S12.9XXA Encounter type: initial encounter Fusion of spine, cervical region M43.22 Time Spent (min) 35 Assessment and Plan Assessment and Plan (1) Pseudoarthrosis of cervical spine: Status: Acute Qualifiers: Encounter type: initial encounter Qualified Code(s): S12.9XXA - Fracture of neck, unspecified, initial encounter (2) Fusion of spine, cervical region: Status: Acute Plan reviewed pt's cervical and thoracic MRI's in detail. I also reviewed pt's cervical CT scan in detail. There seems to be pseudoarthrosis with excessive subsidence at C5-6 with screw breakage. X-rays show prior C5-7 ACDF with cage and plate instrumentation. One of the C5 screws has intraosseous breakage. There is significant subsidence with superior migration of the plate. Difficult to assess for screw loosening. C4-5 appears stiff on flexion-extension views. C2-3 shows severe facet arthrosis. 1. Cervical spine pseudoarthrosis - Surgical intervention planned to add fixation points and improve fusion stability using minimally invasive techniques. 2. Limited cervical range of motion - Post-operative physical therapy planned to improve range of motion, though some limitations may persist. 3. Post-surgical pain management - Pain to be managed with prescribed medications and physical therapy, with emphasis on gradual increase in activity. - Follow post-operative instructions carefully, including wearing a cervical collar as directed. - Engage in physical therapy to improve range of motion and strength. - Manage pain with prescribed medications and nzai-ebl-[id number] analgesics as needed. - Avoid lifting heavy objects for the first three months post-surgery. - Stay active and mobile to prevent complications such as blood clots. We discussed all options in detail including surgical treatment which would be supplementing C5-7 posterior instrumented fusion to supplement the fusion since she has developed pseudoarthrosis. We discussed that there is no guarantee that this will take care of all of her symptoms. Her axial symptoms may improve, but the stiffness is likely from multilevel degenerative changes and may not completely improve. Discussed this procedure in detail and explained the risks, benefits and alternatives. The risks of surgery include but are not limited to infection, bleeding, injury to nerves and vessels, hematoma formation, dysphagia, dysphonia, recurrent laryngeal nerve injury, Sindi syndrome, DVT, pulmonary embolism, pneumonia, atelectasis, cardiopulmonary event, pseudoarthrosis, hardware failure, adjacent segment degeneration, need for further surgery, nerve root injury, spinal cord injury. Answered all questions to the patient’s satisfaction. Patient understands and agrees to proceed with surgery. Consent was signed. Follow up two weeks post operatively or sooner if pain, swelling, numbness or associated symptoms, or concerns develop. All questions answered. Patient in agreement of plan.
--- NOTE | 2025-02-13 12:31 | PCM.PRE.AN2 ---
ASA Classification* ASA Classification ASA Classification: 2 Assessment & Plan Anesthesia* Anesthesia Assessment Anesthesia Assessment: Discussed sedation and/or anesthesia options, risks, benefits, and alternatives with patient/parents/legal guardian/POA. Questions invited. The patient/parents/legal guardian/POA seems to understand and agrees to proceed with anesthesia plan. Reviewed the physical assessment, medical history, allergy history and patient home medications list prior to surgery/procedure/anesthetic and documented any changes. Performed airway and anesthesia risk assessments. Anesthesia Type Anesthesia Type: General Anesthesia Focused Assessment* Airway Assessment Mouth opens: >3 cm Mallampati Score: II Labs Anesthesia Preop lab: CBC WBC, (4.4-11.0) 6.3 K/mm3 02/01/25, 16:19 RBC, (4.2-5.4) 3.77 M/mm3 L 02/01/25, 16:19 Hgb, (12.0-15.0) 11.1 g/dL L 02/01/25, 16: Hct, (37-47) 32.8 % L 02/01/25, 16:19 Plt Count, (150-450) 255 K/mm3 02/01/25, 16:19 CHEMISTRY Potassium, (3.3-5.1) 4.3 mmol/L 02/01/25, 16:19 Sodium, (133-145) 139 mmol/L 02/01/25, 16:19 Magnesium, (1.5-2.2) 2.1 mg/dL 02/01/25, 16:19 Phosphorus, (2.5-4.9) 2.2 mg/dL L 02/12/23, 06:25 BUN, (4-19) 20 mg/dL H 02/01/25, 16:19 Creatinine, (0.70-1.20) 1.11 mg/dL 02/01/25, 16:19 Glucose, (70-99) 86 mg/dL 02/01/25, 16:19 POC Glucose, (74-106) 109 mg/dL H 02/10/23, 06:27 TSH, (0.300-4.200) 1.360 uIU/mL 08/30/24, 16:29 COAG PT, (11.7-14.9) 12.8 SECONDS 01/19/25, 15:05 Pre-Assessment Diagnosis/Proposed Procedure Planned Operative Procedure(s): Posterior Instrumented fusion C5-6 and C6-7 Anesthesia History 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 When Was Last Pacemaker Check QUESTION #4 FULL TEXT: You/Your Family Experience fever (hyperthermia) with Anesthesia Last Oral Intake Last Oral intake: Last Oral Intake NPO since Meds taken in AM with sips of water? Meds patient instructed to take am of surgery PONV PONV - surface water manager: PONV - surface water manager Female Yes 01/30/25 13:11 HX of Motion Sickness Yes 01/30/25 13:11 HX of N/V After Surgery No 01/30/25 13:11 Non-Smoker Yes 01/30/25 13:11 Duration of Surgery greater Yes 01/30/25 13:11 than 60 minutes Number of Risk Factors 4 01/30/25 13:11 PONV Score Severe Risk 01/30/25 13:11 Height & Weight Height & Weight: Anesthesia: Height & Weight Height 5 ft 7 in 02/10/25 11:44 Respiratory Assessment Respiratory Assessment - surface water manager: Respiratory Tract Infection Hx - surface water manager Hx Respiratory Tract Infection No 01/30/25 13:11 STOP Sleep Apnea STOP Sleep Apnea - surface water manager: STOP Sleep Apnea - surface water manager Hx Hypertension No 01/30/25 13:11 Hx Sleep Apnea Yes: NO MACHINE USED AT THIS 01/30/25 13:11 TIME CPAP No 01/30/25 13:11 BIPAP No 01/30/25 13:11 Do you snore loudly (louder than talking or can be heard Do you often feel tired/ fatigued/ sleepy during daytime? Has anyone observed you stop breathing during sleep? STOP Results Positive 01/30/25 13:11 QUESTION #5 FULL TEXT : Do you snore loudly (louder than talking or can be heard through closed doors)? 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 Specify any problems Hx of Preganancy in last 3 No 01/30/25 13:11 Months Nurse Filling Out Transfusion VCHRISTIN 01/30/25 13:11 & Questions: Date: 01/30/25 01/30/25 13:11 Time: 13:13 01/30/25 13:11 Patient unable to answer at this time (ie. confused, unrespo /Reproduction History /Reproductive History - surface water manager: /Reproductive Hx- surface water manager Hx Now No 01/30/25 13:11 Gestational Age (in weeks): EDC: Hx Hx Para Hx Section SAB No 01/30/25 13:11 Active Medications Active Medications: Current Medications Generic Name Dose Route Start Last Admin Trade Name Freq PRN Reason Stop Dose Admin Acetaminophen 1,000 mg 02/13/25 14:15 Acetaminophen 500 Mg Tablet PO 02/13/25 14:16 PREOP ONE Cefazolin Sodium 2 gm/ Sodium 110 mls @ 150 mls/hr 02/13/25 14:15 Chloride IV 02/13/25 14:58 INTRAOP ONE Tranexamic Acid 1,000 mg/ 110 mls @ 440 mls/hr 02/13/25 14:15 Sodium Chloride IV 02/13/25 14:29 INTRAOP ONE Tranexamic Acid 1,000 mg/ 110 mls @ 440 mls/hr 02/13/25 14:15 Sodium Chloride IV 02/13/25 14:29 INTRAOP ONE Magnesium Sulfate 1 gm/ 102 mls @ 408 mls/hr 02/13/25 14:15 Dextrose IV 02/13/25 14:29 PREOP ONE Lactated Ringer's 1,000 mls @ 15 mls/hr 02/13/25 12:30 IV .Q48H SOFIA Insulin Human Lispro 1 - 6 unit 02/13/25 14:15 Insulin Lispro 100 Unit/Ml Insuln.Pen SC 02/14/25 14:16 Q4H PRN PRN BG>/= 180, SEE PROTOCOL Protocol PFSH Medical History Cardiology follow-up encounter Post-menopausal Anxiety Alcohol use History of steroid therapy Arthritis Bladder disease Low iron Back pain Headache Injury of head and neck History of ulceration History of IBS Shortness of breath on exertion Leg cramps History of echocardiogram History of stress test Osteoarthritis of left knee Spinal stenosis at L4-L5 level Wears glasses GERD (gastroesophageal reflux disease) Former smoker Asthma Chest pain, unspecified Chronic back pain Obesity (BMI 30.0-34.9) Asthma Restless leg syndrome Depression Home Medications Medication Instructions Recorded Last Taken Type albuterol sulfate 90 mcg/actuation 1 - 2 puff inhalation Q6H PRN PRN 12/29/16 09/25/20 04:30 History aerosol inhaler Sob &/Or Wheezing 1 - 2 PUFF escitalopram oxalate 20 mg tablet 20 mg PO DAILY DEPRESSION 11/21/20 02/01/24 History omeprazole 40 mg capsule,delayed 40 mg PO DAILY GERD 11/21/20 02/01/24 History release bupropion HCl 150 mg tablet,12 hr 150 mg PO DAILY 05/02/21 02/01/24 History sustained-release (Wellbutrin SR) albuterol sulfate 2.5 mg/0.5 mL 2.5 mg inhalation Q6H PRN 01/20/23 Unknown History solution for nebulization shortness of breath or wheezing loperamide 2 mg capsule 2 mg PO DAILY 01/20/23 02/01/24 History tizanidine 4 mg tablet 4 mg PO TID PRN muscle spasm 08/12/24 Unknown History Allergy/AdvReac Type Severity Reaction Status Date / Time aripiprazole (From Abilify) Allergy Mild rash Verified 02/10/25 11:46 codeine Allergy Rash Verified 02/10/25 11:46 meperidine HCl (From Demerol) Allergy Rash Verified 02/10/25 11:46 oxycodone HCl (From Percocet) Allergy Rash Verified 02/10/25 11:46 Family History Mother Heart disease Breast cancer Father Cancer Pancreatic Cancer Surgical History Hx of surgical procedure History of fusion of cervical spine History of cardiac catheterization History of lumbar fusion History of elbow surgery S/P colonoscopy History of esophagogastroduodenoscopy Status post arthroscopic knee surgery S/P appendectomy History of back surgery Social History Smoking Status: Former smoker alcohol intake: current alcohol intake frequency: holidays/special occasions only substance use type: marijuana what type of physical activity do you participate in: walking seatbelt use: always do you feel safe at home: Yes additional social history: single Patient works for [employer] Review of Systems (Anesthesia) ROS Narrative System reviewed and no additional complaints, except as documented.
[2025-02-13] MEDS: Magnesium 1 GM over 15 mins IV (12:45)
[2025-02-13] MEDS: Lactated Ringers 1,000 ML 15 ML IV (12:45)
[2025-02-13] MEDS: Midazolam 2 MG/2 ML Syringe IV (13:32)
[2025-02-13] MEDS: Lidocaine 1% (5 ml sdv) 5 ML Vial IV (13:32)
[2025-02-13] MEDS: Cefazolin 1 GM/5 ML Vial 2 GM IV (14:09)
--- NOTE | 2025-02-13 14:30 | RAD_ITS ---
EXAM: XR Cervical Spine Flexion/Extension Only, 2 or 3 Views CLINICAL INDICATION: ERAS, POSTERIOR INSTRUMENTED FUSION C5-6 AND C6-7 TECHNIQUE: Lateral flexion/extension views of the cervical spine. COMPARISON: No relevant prior studies available. FINDINGS: A total of 3 fluoroscopic images were obtained. Total fluoroscopy time 82.8 seconds. Total radiation dose 59.25 mGy. RAD/Cerv Spine 2 or 3 Views IMPRESSION: Fluoroscopic guidance was used intraoperatively. Please refer to the operative note for further details. Reading Location: [facility]
[2025-02-13] MEDS: REMIFENTANIL HCL 1 MG VIAL 2 MG IV (14:37)
[2025-02-13] MEDS: 0.9% Normal Saline (1000mL) 1,500 ML 1500 ML IV (14:54)
[2025-02-13] MEDS: TRANEXAMIC ACID 1,000 MG/10 ML ML 2000 MG IV (15:27)
[2025-02-13] MEDS: Bupiv/Epi 0.25% 30 ML Vial (15:45)
--- NOTE | 2025-02-13 16:02 | PCM.OPRPT ---
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 Post-Operative Diagnosis: Same Surgery/Procedure Performed: C5-7 posterior spine instrumented fusion belt glass sander: Yes Shaper Hand: Lorraine Pizano Tasks completed by internet marketing assistant: Closing, Implanting device, Hemostasis: Electrocautery and Retracting Type of Anesthesia: General RN Documented Start/Stop Times: Operation Date: 02/13/25 14:15 Case Time Into Pre-Op 02/13/25 12:18 Anesthesia Start 02/13/25 13:27 Into Room 02/13/25 13:27 Procedure Start 02/13/25 14:34 Procedure End 02/13/25 15:48 Anesthesia End 02/13/25 15:59 Out of Room 02/13/25 15:59 Procedure Start Time: 14:34 Procedure Stop Time: 15:48 Select all DRAINS/GRAFTS/IMPLANTS that apply: Graft Graft details: DBX and Implanted device Implanted device details: [place] [employer] PCSS posterior cervical instrumentation Estimated Blood Loss: 10 cc Specimen collected: No Description of surgery: Preoperative diagnosis: 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 Salazar Cervantes Estimated blood loss: 10 mL (total for entire case) Anesthesia: General Complications: None Instrumentation: [place] [employer] PCSS Indications: Patient is a 69-year-old lady who presented with persistent neck pain 2 years after C5-7 ACDF. Imaging revealed C5-7 ACDF with severe subsidence at the C5-6 level, CT confirms pseudoarthrosis at both levels. After prolonged course of nonsurgical treatment, patient requested surgical treatment. All risks associated with surgery were explained which include but are not limited to infection, blood loss, injury to spinal cord and nerve roots, quadriplegia, DVT, pulmonary embolism, , incomplete neurologic recovery, hardware failure, pseudoarthrosis, need for further surgery. Procedure: The patient was identified in the preoperative suite using unique patient identifiers. Skin was marked, consent was reviewed, and all questions were answered. The patient was then brought back to the operative room. A surgical timeout was performed to make sure correct procedure was being done on the correct patient and all operative room staff were on the same page. General endotracheal anesthesia was then given to the patient. Spinal monitoring leads were applied. The patient was then carefully positioned prone on a regular OR table over parallel gel rolls and molded face pillow. All bony prominences were well-padded. Abdomen was free. Reverse Trendelenburg position was given. 2 C arm machines were positioned for AP and lateral views. A lateral C-arm was passed underneath and tilted away to allow the AP C arm to come from the head end. Post-flip Baseline neuro monitoring potentials were recorded. AP and lateral views were taken to make sure the patient was positioned with neutral rotation and levels were confirmed. Skin was then prepped and draped in the usual fashion. A final time-out was then performed. Skin marker was utilized to edmund on the skin in the midline, medial facet line, lateral facet line bilaterally. Endon view of the facets was taken and transversely marked on the skin. Spinal needle was then passed entering at the medial facet line going slightly laterally towards the facet joint starting at C6-7 on the left. Marcaine with epi was injected through this tract. Paramedian incision was made a centimeter above and below the needle. The same knife was utilized to make a vertical incision over the fascia as well. Facet finder #1 instrument was then passed vertically and then turned transversely and this was entered into the C6-7 left facet joint such that it was in the midline of the facet and directed somewhat laterally but still within the facet joint. After entering the facet joint this was malleted up to the stop. This was confirmed on AP and lateral view. Once adequate position was confirmed, guide instruments were passed to guide the rasps and the facet finder was removed. Rasps were used to decorticate the facet process above and below. Straight drill was then used. A 4 mm x 10 mm [place] [employer] PCSS titanium 5 cage was then packed with DBX was then inserted. This was confirmed again on AP lateral view to be in good position. 2 screws were placed 1 superiorly and 1 inferiorly at the facet process through the cage. Additional DBX was then packed on top of the cage and guide instruments were removed. This process was then repeated for C5-6 facet on the left as well as C5-6 and C6-7 facets on the right. Hemostasis was achieved. Closure was done in layers with 0 Vicryls for the fascia, 2-0 Vicryls for the subcutaneous tissue, and harris for the skin. Dressings were applied covered with Tegaderm. The patient was then turned supine onto a hospital bed. Cervical collar was applied. The patient was extubated and taken to PACU in stable condition. The patient tolerated the procedure well and no complications occurred. [employer] PCSS instrumentation system was utilized in this case. No dural tear was identified intraoperatively. Neuromonitoring potentials stayed at baseline throughout the case. I was present for the entirety of the case and performed the surgery. Surgical Findings: See operative note Complications Complications: No
--- NOTE | 2025-02-13 16:11 | PCM.POST.ANE ---
Anesthesia: Postop Eval I Current Vital Signs Temperature: 97.2 F Pulse Rate: 71 Blood Pressure: 157/83 Respiratory Rate: 17 Pulse Ox: 97 Assessment Airway patent: Yes Spontaneous unlabored respirations: Yes nausea: No Vomiting: No Anesthesia Complication: No Fluid Hydration Crystalloid volume administer (ml): 1,500 Total IV fluid infused: 1,500 Progress Note Anesthesia document: Postop Eval 1 completed: Yes
[2025-02-13] MEDS: Ketorolac 30 MG/ML Syringe IV (16:41)
--- NOTE | 2025-02-13 17:04 | POSTOPAN2_ITS ---
Anesthesia Postop Eval I Sum Postop Eval Completion status Anesthesia document: Postop Eval 1 completed: Yes Anesthesia Postop Eval I Summary Anesthesia Postop Eval I Summary: Anesthesia Postop Eval I: Assessment Summary Airway patent Yes 02/13/25 16:11 GOVERNMENT PROGRAM [email or web address] Spontaneous unlabored Yes 02/13/25 16:11 GOVERNMENT PROGRAM [email or web address] respirations Mental status nausea No 02/13/25 16:11 GOVERNMENT PROGRAM [email or web address] Vomiting No 02/13/25 16:11 GOVERNMENT PROGRAM [email or web address] Anesthesia Postop Eval I: Fluid Summary Crystalloid volume administer 1,500 02/13/25 16:11 GOVERNMENT PROGRAM [email or web address] (ml) Colloids volume administered ( ml) Blood Product volume administered (ml) Total IV fluid infused 1,500 02/13/25 16:11 GOVERNMENT PROGRAM [email or web address] Anesthesia Postop Eval I: Summary Notes Anesthesia Complication No 02/13/25 16:11 GOVERNMENT PROGRAM [email or web address] Anesthesia Complication Comment: Post-operative progress note Anesthesia: Postop Eval II Evaluation Mental status: Awake Pain Level: 3 nausea: No Vomiting: No
--- NOTE | 2025-02-13 17:04 | PCM.POSTANE2 ---
Anesthesia Postop Eval I Sum Postop Eval Completion status Anesthesia document: Postop Eval 1 completed: Yes Anesthesia Postop Eval I Summary Anesthesia Postop Eval I Summary: Anesthesia Postop Eval I: Assessment Summary Airway patent Yes 02/13/25 16:11 INDUSTRIAL [email or web address] Spontaneous unlabored Yes 02/13/25 16:11 INDUSTRIAL [email or web address].[email or web address] respirations Mental status nausea No 02/13/25 16:11 INDUSTRIAL [email or web address] Vomiting No 02/13/25 16:11 INDUSTRIAL [email or web address].ABAR Anesthesia Postop Eval I: Fluid Summary Crystalloid volume administer 1,500 02/13/25 16:11 INDUSTRIAL [email or web address].ABAR (ml) Colloids volume administered ( ml) Blood Product volume administered (ml) Total IV fluid infused 1,500 02/13/25 16:11 INDUSTRIAL [email or web address].ABAR Anesthesia Postop Eval I: Summary Notes Anesthesia Complication No 02/13/25 16:11 INDUSTRIAL [email or web address].ABAR Anesthesia Complication Comment: Post-operative progress note Anesthesia: Postop Eval II Evaluation Mental status: Awake Pain Level: 3 nausea: No Vomiting: No
[2025-02-13] MEDS: 0.9% Saline Lock 10 ML Syringe IV (19:55)
--- NOTE | 2025-02-13 20:01 | CON.PCM.HO_ITS ---
Assessment & Plan Assessment/Plan (1) Pseudoarthrosis of cervical spine: QUALIFIERS: Encounter type: initial encounter Qualified Code(s): S12.9XXA - Fracture of neck, unspecified, initial encounter PLAN: Plan Patient is a 69-year-old female who presented to [facility] on 02/18/2025 for planned cervical spine fusion procedure. Medicine consulted postoperatively for medical management. 1. 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 S/p C5-7 posterior spine instrumented fusion procedure with Dr. Cervantes on 02/13. Tolerated procedure well, no intraoperative complications noted. Postoperative pain control, DVT prophylaxis and further management per orthopedics. Follow-up a.m. labs. PT/OT/case management consulted. 2. Anxiety/depression – Stable. Continue home escitalopram and bupropion. 3. Asthma – Stable on room air, not in exacerbation. Continue home albuterol inhaler as needed. 4. GERD – Continue home PPI. 5. Mild chronic anemia – Hemoglobin 11.1 on preoperative labs on 02/01, baseline around 11. Follow-up a.m. CBC. DVT prophylaxis: Per orthopedics Total clinical time spent by myself addressing the patient's medical issues, reviewing all the data, and collaborating with patient's care team: 37 minutes. HPI Consult Data Date of Consult: 02/13/25 HPI Narrative Reason for Consultation: Postoperative medical management HPI Narrative: ROHAN ROSALES, is a 69 F who presented to [facility] on 02/13/2025 for planned orthopedic procedure. Medicine consulted postoperatively for medical management. Patient had C5-7 posterior spine fusion procedure done with Dr. Cervantes this afternoon. Tolerated procedure well, no intraoperative complications noted. I saw the patient at bedside this evening. Patient was sitting back comfortably in bed, conversing normally, in no acute distress. Neck brace was in place. Patient had just finished eating her dinner and noted that she was feeling quite hungry prior to eating dinner. She does report mild neck pain currently but states it is improved after she was given a dose of IV pain medication about an hour ago. She denies any other acute concerns at this time. [facility] Medical History Cardiology follow-up encounter Post-menopausal Anxiety Alcohol use History of steroid therapy Arthritis Bladder disease Low iron Back pain Headache Injury of head and neck History of ulceration History of IBS Shortness of breath on exertion Leg cramps History of echocardiogram History of stress test Osteoarthritis of left knee Spinal stenosis at L4-L5 level Wears glasses GERD (gastroesophageal reflux disease) Former smoker Asthma Chest pain, unspecified Chronic back pain Obesity (BMI 30.0-34.9) Asthma Restless leg syndrome Depression Home Medications Medication Instructions Recorded Last Taken Type albuterol sulfate 90 mcg/actuation 1 - 2 puff inhalati on Q6H PRN PRN 12/29/16 09/25/20 04:30 History aerosol inhaler Sob &/Or Wheezing 1 - 2 PUF F escitalopram oxalate 20 mg tablet 20 mg PO DAILY DEPRE SSION 11/21/20 02/01/24 History omeprazole 40 mg capsule,delayed 40 mg PO DAILY GERD 0 11/21/20 02/13/25 History release bupropion HCl 150 mg tablet,12 hr 150 mg PO DAILY 04/1402/01/24 History sustained-release (Wellbutrin SR) albuterol sulfate 2.5 mg/0.5 mL 2.5 mg inhalation Q6H PRN 01/20/23 Unknown History solution for nebulization shortness of breath or wheez ing loperamide 2 mg capsule 2 mg PO DAILY 01/20/2301/31 History tizanidine 4 mg tablet 4 mg PO TID PRN muscle spasm 08/12/24 Unknown History Allergy/AdvReac Type Severity Reaction Status Date / Time aripiprazole (From Abilify) Allergy Mild rash Verified 02/13/25 12:33 codeine Allergy Rash Verified 02/13/25 12:33 meperidine HCl (From Demerol) Allergy Rash Verified 02/13/25 12:33 oxycodone HCl (From Percocet) Allergy Itching Verified 02/13/25 12:33 Family History Mother Heart disease Breast cancer Father Cancer Pancreatic Cancer Surgical History Hx of surgical procedure History of fusion of cervical spine History of cardiac catheterization History of lumbar fusion History of elbow surgery S/P colonoscopy History of esophagogastroduodenoscopy Status post arthroscopic knee surgery S/P appendectomy History of back surgery Social History Smoking Status: Former smoker alcohol intake: current alcohol intake frequency: holidays/special occasions only substance use type: marijuana what type of physical activity do you participate in: walking seatbelt use: always do you feel safe at home: Yes additional social history: single Patient works for [employer] Constitutional Constitutional: Denies chills, fatigue, fever(s) or weakness Cardiovascular Cardiovascular: Denies chest pain Respiratory/Chest Respiratory/Chest: Denies shortness of breath at rest Gastrointestinal Gastrointestinal: Denies abdominal pain Musculoskeletal Musculoskeletal: Reports neck pain Neurologic Neurologic: Denies dizziness, focal weakness, headache(s), numbness or tingling Physical Exam Const alert, oriented x3, no apparent distress and average body habitus Constitutional Narrative: Pleasant upper middle-aged female, neck brace in place, good energy level noted, sitting back comfortably in bed, conversing normally, in no acute distress. General Appearance: cooperative and comfortable HEENT normocephalic, head/scalp atraumatic, hearing grossly normal bilaterally, nasal mucous membranes and turbinates normal and moist oral mucous membranes Eyes PERRL, EOMs intact bilaterally and conjunctivae normal Neck Neck Narrative: Neck brace in place. Chest inspection of chest normal Resp normal respiratory effort, normal air movement, no use of accessory muscles and clear to auscultation bilaterally Cardio regular rate, regular rhythm, no murmurs and peripheral pulses 2+ throughout GI normal to inspection, nondistended, normoactive bowel sounds, soft to palpation, non-tender and non-distended Back/Spine normal ROM Extremity normal to inspection, full ROM and no pedal edema Skin no rashes or lesions noted Neuro moves all extremities and no focal motor deficits Psych mental status grossly normal Lab / Micro Data 02/01/25 16:19 02/01/25 16:19 Labs: Laboratory Results - last 24 hr 02/13/25 12:42: POC Glucose 94 Charges/Coding Visit Charges Inpatient E&M: 27920 Subs Hosp L2
[2025-02-13] MEDS: Senna/Docusate Sodium 1 Tablet 2 TABLET PO (22:28)
[2025-02-13] MEDS: HYDROcodone Bitartrate/Apap 5/325 Tablet PO (22:28)
[2025-02-13] MEDS: Cefazolin 2 GM in 0.9% Normal Saline (100mL Bag) 100 ML IV (22:28)
[2025-02-14 00:41] VITALS: BP 111/66; PULSE 82; RESP 18; TEMP 36.4; O2SAT 97
[2025-02-14] MEDS: HYDROcodone Bitartrate/Apap 5/325 Tablet PO ×2 (04:02→08:12)
[2025-02-14 05:28] VITALS: BP 148/74; PULSE 83; RESP 16; TEMP 36.4; O2SAT 97
[2025-02-14] MEDS: Cefazolin 2 GM in 0.9% Normal Saline (100mL Bag) 100 ML IV (05:38)
--- NOTE | 2025-02-14 06:52 | RAD_ITS ---
PROCEDURE: CERV SPINE 2 OR 3 VIEWS 02/14/2025 REASON FOR EXAM: S/P POSTERIOR CERVICAL FUSION TECHNIQUE: Procedure Code: RADSPCL Modality: DX Procedure: CERV SPINE 2 OR 3 VIEWS COMPARISON: February 13, 2025. FINDINGS: Patient is status anterior and posterior fusion at the C5-C6 level and C6-C7 there is straightening of the normal cervical lordosis visible muscle spasm. RAD/Cerv Spine 2 or 3 Views IMPRESSION: Status post anterior and posterior fusion prosthesis at the C5-C6 and seen. Disclaimer: Reading Location: [id number]
[2025-02-14] MEDS: Senna/Docusate Sodium 1 Tablet 2 TABLET PO (07:26)
[2025-02-14] MEDS: buPROPion (SR) 150 MG Tablet.SA PO (07:26)
[2025-02-14] MEDS: FLU VACCINE HIGH DOSE 25-26(65YR UP) 180 MCG/0.5 ML SYRINGE IM (07:30)
[2025-02-14 07:41] LABS: Hematocrit 31.3 % (37-47); Hemoglobin 10.5 g/dL (12.0-15.0); Immature Granulocytes Count 0.040 X10^3/uL (0.0-0.0); Mean Corp Hgb Conc 33.5 g/dL (32-36); Mean Corpuscular Volume 87.9 fL (81-99); Mean Platelet Vol. 10.4 fl (6.2-12.0); NRBC Flagged by Analyzer 0 % (0-5); Platelet Count 199 K/mm3 (150-450); RBC Distribution Width CV 12.4 % (11.6-14.6); RBC Distribution Width SD 39.9 fl (35.1-43.9); Red Blood Count 3.56 M/mm3 (4.2-5.4); White Blood Count 9.2 K/mm3 (4.4-11.0)
[2025-02-14 08:11] LABS: Anion Gap 10 (5-15); BUN 19 mg/dL (4-19); BUN/Creat Ratio 18.5 RATIO (10-20); Calcium,Total 8.9 mg/dL (7.6-11.0); Carbon Dioxide 23.2 mmol/L (21.0-32.0); Chloride 106 mmol/L (98-108); Estimated Creatinine Clearance 55.31 ml/min (50-250); Glucose 105 mg/dL (70-99); Potassium 4.3 mmol/L (3.3-5.1)
[2025-02-14 08:27] VITALS: BP 161/90; PULSE 72; RESP 16; TEMP 36.4; O2SAT 97
[2025-02-14 08:31] VITALS: BP 161/90; PULSE 72; RESP 16; TEMP 36.4; O2SAT 97
[2025-02-14] MEDS: 0.9% Saline Lock 10 ML Syringe IV (10:11)
--- NOTE | 2025-02-14 11:15 | CASEMGMT ---
Social Work Pt states her partner Miriam Parker is her HCPOA. SW asked her to have Miriam Dwyer bring in the documents as able. ANJU Patten
[2025-02-14 11:26] VITALS: BP 160/90; PULSE 84; RESP 16; TEMP 36.6; O2SAT 98
--- NOTE | 2025-02-14 11:45 | CASEMGMT ---
Dx:posterior instrumented fusion LACE:1 6-Clicks:24, no PT or OT recommended per evals Medical record reviewed and patient evaluated for identification of discharge planning needs. Based on this review, at this time criteria are not present to indicate a need for discharge planning. Will remain available to assist with discharge planning needs as identified or requested.
--- NOTE | 2025-02-14 11:56 | DCINST_ITS ---
Discharge Instructions DC O2, CPAP, BIPAP needs Home O2 Discharge instructions: No Follow Up Care Test Results: Test results from this visit will be discussed in further detail at your follow- up appointment, if applicable. Discharge Plan Admission Admit Date/Time: 02/13/25 15:59 Attending Provider: Salazar Cervantes Primary Care Provider: Toño Monzon Consulting Providers: Dallin Schuster; Mei Noriega; Christina Bauman; Marcin Canales; Marcin Nascimento; Pradeep Enamorado; Selma Jackson; Francisco Pineda; Ching Dickey; Marco Rosales; Hannah Duron; Jadon Braxton; Bayron Hernández; Joss Romero; Anoop Chaves; La Nena Ledesma; Ej Melgoza; Mary Cortez Instructions Patient Instructions: Cervical Fusion Dc Additional Instructions / Restrictions: Keep Tegaderm and gauze clean and dry. After 5 days remove the Tegaderm and gauze and cover incision with a Band-Aid. Replace Band-Aid daily thereafter. Wear cervical collar full-time for the first 2 weeks. Eat soft solid foods as needed for dysphagia. Sleep in a recliner to help with swelling. No bending, lifting, twisting. Follow-up in clinic in 2 weeks. Discharge Orders/Prescriptions Prescriptions: New acetaminophen 500 mg Tablet 500 mg PO Q6H Qty: 30 0RF hydrocodone-acetaminophen 5-325 mg Tablet 1 tab PO Q6H PRN (Reason: pain) 7 Days Qty: 28 0RF meloxicam 15 mg Tablet 15 mg PO DAILY Qty: 30 0RF Rx Instructions: Take once a day methocarbamol 500 mg Tablet 750 mg PO TID PRN (Reason: Pain/spasms) Qty: 30 0RF sennosides-docusate sodium [Stimulant Laxative Plus] 8.6-50 mg Tablet 2 tab PO BID PRN (Reason: constipation) Qty: 14 0RF Continued bupropion HCl [Wellbutrin SR] 150 mg tablet sustained-release 12 hr 150 mg PO DAILY omeprazole 40 mg capsule,delayed release(DR/EC) 40 mg PO DAILY Patient Comments: TAKE 1 CAPSULE BY MOUTH DAILY albuterol sulfate 1 INHALER inhaler 1 - 2 puff INHALATION Q6H PRN PRN (Reason: Sob &/Or Wheezing) escitalopram oxalate 20 mg tablet 20 mg PO DAILY albuterol sulfate 2.5 mg/0.5 mL solution for nebulization 2.5 mg inhalation Q6H PRN (Reason: shortness of breath or wheezing) Patient Comments: use 1 (ONE) vial FOUR TIMES DAILY NEEDED loperamide 2 mg capsule 2 mg PO DAILY Patient Comments: TAKE 1 CAPSULE BY MOUTH ONCE DAILY Discontinued tizanidine 4 mg tablet 4 mg PO TID PRN (Reason: muscle spasm) Referrals / Follow Up: Toño Monzon MD [Primary Care Provider, Family Practice] Disposition Disposition (needs filled in before D/C Order can be placed): Home, Self Care
--- NOTE | 2025-02-14 13:47 | PHA.DC.MR.R ---
Pharmacy [place] Med Reconciliation Pharmacy Service has performed discharge medication reconciliation for this patient. The patient's discharge medication list was reviewed for discrepancies and discrepancies were resolved. Medications at Discharge Home Medications albuterol sulfate 90 mcg/actuation aerosol inhaler 1 - 2 puff inhalation Q6H PRN PRN Sob &/Or Wheezing 12/29/16 escitalopram oxalate 20 mg tablet 20 mg PO DAILY DEPRESSION 11/21/20 omeprazole 40 mg capsule,delayed release 40 mg PO DAILY GERD 11/21/20 bupropion HCl 150 mg tablet,12 hr sustained-release (Wellbutrin SR) 150 mg PO DAILY 05/02/21 albuterol sulfate 2.5 mg/0.5 mL solution for nebulization 2.5 mg inhalation Q6H PRN shortness of breath or wheezing 01/20/23 loperamide 2 mg capsule 2 mg PO DAILY 01/20/23 acetaminophen 500 mg tablet 500 mg PO Q6H #30 tabs 02/14/25 hydrocodone-acetaminophen 5-325mg 5mg-325mg 1 tab PO Q6H PRN pain 7 days #28 tabs 02/14/25 meloxicam 15 mg tablet 15 mg PO DAILY #30 tabs 02/14/25 methocarbamol 500 mg tablet 750 mg (1.5 x 500 mg) PO TID PRN Pain/spasms #30 tabs 02/14/25 sennosides 8.6 mg-docusate sodium 50 mg tablet (Stimulant Laxative Plus) 2 tab PO BID PRN constipation #14 tabs 02/14/25
== END 2025-02-14 13:43 | disposition home or self-care (01) | DRG 472 ==
LOC: MS3 02-14 01:49 → SDC 02-14 09:01 → MS3 02-14 09:01
PROVIDERS: Anesthesiology; Student in an Organized Health Care Education/Training Program; Admitting Provider Orthopaedic Surgery Orthopaedic Surgery of the Spine; PCP Family Medicine; Referring Provider Orthopaedic Surgery Orthopaedic Surgery of the Spine; Visit Provider Orthopaedic Surgery Orthopaedic Surgery of the Spine
DX: T84.296A Other mechanical complication of internal fixation device of vertebrae, initial encounter (principal); S12.9XXA Fracture of neck, unspecified, initial encounter; D64.9 Anemia, unspecified; J45.909 Unspecified asthma, uncomplicated; F32.A Depression, unspecified; K21.9 Gastro-esophageal reflux disease without esophagitis; M43.22 Fusion of spine, cervical region; F41.9 Anxiety disorder, unspecified; Z87.891 Personal history of nicotine dependence; Z98.1 Arthrodesis status; X58.XXXA Exposure to other specified factors, initial encounter
CPT/HCPCS: 36415; 72040; 76000; 80048; 82962; 83036; 83735; 85025; 86850; 86900; 86901; 87077; 87081; 94668; 97161; 97165; C1713; C1776; A4216; J2405; J3475